=== PATIENT | male | born 1950 | race Caucasian/White ===

== ENCOUNTER 2020-05-02 09:53 | Outpatient (CLI) | payer MEDICARE, SELFPAY ==
[2020-05-03 22:42] LABS: SARS-CoV-2 RNA PCR Negative
== END 2020-05-02 09:54 | disposition home or self-care (01) ==
PROVIDERS: Visit Provider Internal Medicine Critical Care Medicine
DX: Z20.828 Contact with and (suspected) exposure to other viral communicable diseases (principal)
CPT/HCPCS: 87635; C9803; U0003

== ENCOUNTER 2020-05-03 13:15 | Outpatient (CLI) | payer MEDICARE, SELFPAY ==
[2020-05-04 12:24] LABS: SARS-CoV-2 RNA PCR Negative
== END 2020-05-03 13:16 | disposition home or self-care (01) ==
PROVIDERS: Visit Provider Internal Medicine Critical Care Medicine
DX: Z20.828 Contact with and (suspected) exposure to other viral communicable diseases (principal)
CPT/HCPCS: 87635; C9803; U0003

== ENCOUNTER 2020-05-06 19:31 | Outpatient (CLI) | payer MEDICARE, SELFPAY ==
--- NOTE | 2020-05-16 19:25 | P.SLEEP_ITS ---
Sleep Study Date of Study: 05/06/20 Ordering Provider: Dr.Chandra Yocasta Interpreting Physician: Sleep Study Type: Split Polysomnogram Height: 1.83 m Weight: 112.491 kg Body Mass Index: 33.6 Neck Circumference: 48.26 cm [place]: 1 Reason for Sleep Study snoring,hypersomnolence Sleep History According to --Snoring and excessive daytime somnolence.Patient does not report many complaints. [facility] Past Medical History Medical History (Updated 06/04/19 @ 13:20 by Jessica Harrington) Hypercholesterolemia Family History Family History Other Cerebrovascular accident Diabetes mellitus Family history of malignant neoplasm Social History Social History Smoking status: Never smoker Alcohol intake: never Gender identity (if verbalized by the patient): Male Medications Home Medications Medication Instructions Recorded Confirmed Type lovastatin 20 mg PO DAILY 03/19/19 05/25/19 History Sleep Procedure Split night study Sleep Architecture Diagnostic--Sleep [id number] min,sleep efficiency-64.5%,sleep latency-13min,No REM. Wake after sleep onset-55min,StageN1-12.1%,N2-87.9%,No N3 or R.Supine sleep- 64.5% Treatment-Sleep time-146.5min,Sleep efficiency-43.7%sleep latency-64min,REM latency-237min. WASO-124min,StageN1-24.6%,N2-61.8%,N3-0%,R-13.7%Supine sleep-98.6% Respiratory Analysis Zrkibcbomz-Ufzmh-3,2 obstructive,1 central.Index-1.5,Hypopneas-61,index-29.6, AHI-31.1 Supine index-36.9,Non supine-20.5 Treatment--Apneas 4,obstructive,index1.6, Hypopneas-92,index-37.7, AHI-39.3,REM index-15,Non REM index-43.2 all events seen in supine sleep. Arousals Wlzdjzxrjh-Sgddm-40,index 17.2 ,spontaneous-24,respiratory-3,snores-16,leg mov-8 Treatment-Total 143 (25.6) ,Spontaneous-38,Limb mov.-39,iwxrks86,Resp-46. Periodic Limb Movements Diagnostic-237(115), PLMs-8(3.9) Treatment-311 (127.4), PLMs-7 (2.9) Oximetry Data Dignostic-Mean 91%,Min-83%.SaO2<90-30 min,SaO2<88-13min. Egduexqis-Cnfs-71%,Min-82%, SaO2<90-19 min,SaO2<88-!! min. Snoring Profile Present Cardiac Profile Normal sinus rhythm--Diagnostic--mean-72,Treatment-71. Qdzle-77-408. EEG Profile unremarkable Assessment and Plan Additional Plan PAP therapy--Patient used Quattro full face mask -Medium size. Stared on CPAP 5 cm increased to19 cm.AHI was 32 at this high pressure.Patient was switched to BiPAP at 21/17 cm.23 min of trial,8 min and 30 sec of Non REM,and 10 min and 53 sec of REM sleep including supine REM occurred.Sleep ef f-86%.sat-averaged 94.6%. The study shows presence of severe ULYSSES associated with significant desaturation.The use of CPAP even up to 19 cm does not control obstructive events.However use of BiPAP at 21/17 cm eliminates obstruction and prevents hypoxia.This will be appropriate setting for this patient.Other measures would include-Maintenance of healthy weight,proper sleep hygiene and correction of upper airway obstruction if present.
[2020-05-16 20:19] VITALS: BMI 33.6
== END 2020-05-06 19:32 | disposition home or self-care (01) ==
DX: G47.30 Sleep apnea, unspecified (principal)
CPT/HCPCS: 95811

== ENCOUNTER 2020-06-08 07:27 | Outpatient (CLI) | payer MEDICARE, SELFPAY ==
[2020-06-08 08:10] LABS: Hemoglobin A1C 5.8 % (<5.7)
[2020-06-08 10:07] LABS: Alanine Aminotransferase 18 U/L (16-63); Alkaline Phosphatase 85 U/L (46-116); Anion Gap 9 mmol/L (8-16); Aspartate Amino Transferase 18 U/L (15-37); Bilirubin,Total 0.9 mg/dL (0.00-1.00); Blood Urea Nitrogen 14 mg/dL (7-18); Calcium 8.7 mg/dL (8.5-10.1); Carbon Dioxide 27 mmol/L (21-32); Chloride 104 mmol/L (98-108); Cholesterol 224 mg/dL (0-200); Estimated Glomerular Filt Rate > 60; Glucose 111 mg/dL (70-99); HDL Direct 44 mg/dL (40-60); LDL Cholesterol Calculated 147 mg/dL (<130); Osmolality Calculated 291 mOsm/kg (285-295); Potassium 4.1 mmol/L (3.5-5.1); Sodium 140 mmol/L (136-145); Triglycerides 165 mg/dL (0-150)
== END 2020-06-08 07:28 | disposition home or self-care (01) ==
LOC: CHSLAB 07:30
DX: E78.5 Hyperlipidemia, unspecified (principal); R73.03 Prediabetes; Z12.5 Encounter for screening for malignant neoplasm of prostate
CPT/HCPCS: 36415; 80053; 80061; 83036; 84153; G0103

== ENCOUNTER 2021-06-09 07:58 | Outpatient (CLI) | payer MEDICARE, SELFPAY ==
[2021-06-09 09:27] LABS: Alanine Aminotransferase 21 U/L (16-63); Albumin Level 3.8 g/dL (3.4-5.0); Alkaline Phosphatase 92 U/L (46-116); Aspartate Amino Transferase 18 U/L (15-37); Bilirubin Direct 0.1 mg/dL (0-0.2); Bilirubin,Total 0.5 mg/dL (0.00-1.00); Cholesterol 199 mg/dL (0-200); HDL Direct 44 mg/dL (40-60); LDL Cholesterol Calculated 128 mg/dL (<130); Total Protein 6.8 g/dL (6.4-8.2); Triglycerides 137 mg/dL (0-150)
== END 2021-06-09 07:59 | disposition home or self-care (01) ==
DX: E78.00 Pure hypercholesterolemia, unspecified (principal); Z51.81 Encounter for therapeutic drug level monitoring
CPT/HCPCS: 36415; 80061; 80076

== ENCOUNTER 2021-12-28 08:00 | Outpatient (CLI) | payer MEDICARE, SELFPAY ==
[2021-12-28 08:17] LABS: Basophils Absolute Auto 0.03 K/mm3 (0.00-0.10); Basophils Percent Auto 0.4 % (0.0-1.0); Eosinophils Absolute Auto 0.15 K/mm3 (0.02-0.50); Eosinophils Percent Auto 1.8 % (1.0-6.0); Hematocrit 42.2 % (37.0-46.0); Immature Granulocyte Absolute 0.03 K/mm3 (0.00-0.00); Immature Granulocyte Percent A 0.4 % (0.0-0.0); Lymphocytes Absolute Auto 3.12 K/mm3 (1.10-4.50); Lymphocytes Percent Auto 38.2 % (18.0-42.0); Mean Corpuscular HGB Conc 33.2 g/dL (32.0-36.0); Mean Corpuscular Hemoglobin 30.4 pg (27.0-31.0); Mean Corpuscular Volume 91.7 fL (78.0-102.0); Mean Platelet Volume 9.2 fl (8.7-11.0); Monocytes Absolute Auto 0.61 K/mm3 (0.10-0.90); Monocytes Percent Auto 7.5 % (2.0-11.0); Neutrophils Absolute Auto 4.2 K/mm3 (1.7-7.2); Neutrophils Percent Auto 51.7 % (50.0-70.0); Platelet Count Result 208 K/mm3 (150-420); Red Cell Distribution Width 12.2 % (11.6-14.4); White Blood Count 8.2 K/mm3 (4.8-10.8)
[2021-12-28 09:04] LABS: Alanine Aminotransferase 22 U/L (16-63); Albumin Level 3.8 g/dL (3.4-5.0); Alkaline Phosphatase 96 U/L (46-116); Anion Gap 8 mmol/L (8-16); Aspartate Amino Transferase 22 U/L (15-37); Bilirubin,Total 0.6 mg/dL (0.00-1.00); Blood Urea Nitrogen 16 mg/dL (7-18); Calcium 8.9 mg/dL (8.5-10.1); Carbon Dioxide 26 mmol/L (21-32); Chloride 105 mmol/L (98-108); Cholesterol 210 mg/dL (0-200); Estimated Glomerular Filt Rate > 60; Glucose 117 mg/dL (70-99); HDL Direct 49 mg/dL (40-60); LDL Cholesterol Calculated 139 mg/dL (<130); Osmolality Calculated 290 mOsm/kg (285-295); Potassium 4.4 mmol/L (3.5-5.1); Prostate Specific Antigen 2.5 ng/mL (< OR = 4.0); Sodium 139 mmol/L (136-145); Total Protein 6.6 g/dL (6.4-8.2); Triglycerides 110 mg/dL (0-150)
== END 2021-12-28 08:01 | disposition home or self-care (01) ==
LOC: CHSLAB 08:06
DX: R73.03 Prediabetes (principal); E78.00 Pure hypercholesterolemia, unspecified; Z12.5 Encounter for screening for malignant neoplasm of prostate
CPT/HCPCS: 36415; 80053; 80061; 83036; 84153; 85025; G0103

== ENCOUNTER 2022-06-15 08:04 | Outpatient (CLI) | payer MEDICARE, SELFPAY ==
[2022-06-15 08:22] LABS: Basophils Absolute Auto 0.03 K/mm3 (0.00-0.10); Basophils Percent Auto 0.4 % (0.0-1.0); Eosinophils Absolute Auto 0.25 K/mm3 (0.02-0.50); Eosinophils Percent Auto 3.2 % (1.0-6.0); Hematocrit 41.7 % (37.0-46.0); Immature Granulocyte Absolute 0.02 K/mm3 (0.00-0.00); Immature Granulocyte Percent A 0.3 % (0.0-0.0); Lymphocytes Absolute Auto 2.26 K/mm3 (1.10-4.50); Lymphocytes Percent Auto 28.7 % (18.0-42.0); Mean Corpuscular HGB Conc 33.6 g/dL (32.0-36.0); Mean Corpuscular Hemoglobin 30.8 pg (27.0-31.0); Mean Corpuscular Volume 91.9 fL (78.0-102.0); Mean Platelet Volume 9.2 fl (8.7-11.0); Monocytes Absolute Auto 0.74 K/mm3 (0.10-0.90); Monocytes Percent Auto 9.4 % (2.0-11.0); Neutrophils Absolute Auto 4.6 K/mm3 (1.7-7.2); Platelet Count Result 215 K/mm3 (150-420); Red Blood Count 4.54 M/mm3 (4.70-6.10); Red Cell Distribution Width 12.6 % (11.6-14.4); White Blood Count 7.9 K/mm3 (4.8-10.8)
[2022-06-15 08:36] LABS: Hemoglobin A1C 5.7 % (<5.7)
[2022-06-15 08:49] LABS: Alanine Aminotransferase 23 U/L (16-63); Albumin Level 3.7 g/dL (3.4-5.0); Alkaline Phosphatase 88 U/L (46-116); Anion Gap 9 mmol/L (8-16); Aspartate Amino Transferase 31 U/L (15-37); Bilirubin,Total 0.6 mg/dL (0.00-1.00); Blood Urea Nitrogen 15 mg/dL (7-18); Calcium 8.5 mg/dL (8.5-10.1); Carbon Dioxide 27 mmol/L (21-32); Chloride 104 mmol/L (98-108); Cholesterol 187 mg/dL (0-200); Estimated Glomerular Filt Rate > 60; Glucose 111 mg/dL (70-99); HDL Direct 48 mg/dL (40-60); LDL Cholesterol Calculated 119 mg/dL (<130); Osmolality Calculated 291 mOsm/kg (285-295); Potassium 4.4 mmol/L (3.5-5.1); Sodium 140 mmol/L (136-145); Total Protein 6.7 g/dL (6.4-8.2); Triglycerides 98 mg/dL (0-150)
== END 2022-06-15 08:05 | disposition home or self-care (01) ==
LOC: CHSLAB 08:10
DX: R73.03 Prediabetes (principal); E78.00 Pure hypercholesterolemia, unspecified
CPT/HCPCS: 36415; 80053; 80061; 83036; 85025

== ENCOUNTER 2022-06-21 11:01 | Outpatient (CLI) | payer MEDICARE, SELFPAY ==
[2022-06-21 11:57] LABS: Prostate Specific Antigen 3.2 ng/mL (< OR = 4.0)
== END 2022-06-21 11:02 | disposition home or self-care (01) ==
LOC: CHSLAB 11:05
DX: Z12.5 Encounter for screening for malignant neoplasm of prostate (principal)
CPT/HCPCS: 36415; 84153; G0103

== ENCOUNTER 2023-06-20 16:05 | Emergency (ER) | payer MEDICARE, SELFPAY ==
[2023-06-20] VITALS (20 sets, daily range): BP systolic 100–134; BP diastolic 56–73; PULSE 70–83; RESP 14–16; TEMP 36.2–36.9; O2SAT 83–99
--- NOTE | ~2023-06-20 | CT_ITS ---
EXAMINATION: 1. CT facial & cervical spine wo DATE: 06/20/2023 16:58 INDICATION: Syncopal episode with head injury post fall TECHNIQUE: 1. Computed tomography (CT) of the maxillofacial region and of the cervical spine were performed with out intravenous contrast. Sagittal and coronal reconstructions of both regions were obtained. Automat ed exposure control and iterative reconstruction technique were employed. The dose-length product was 541.46 mGy-cm. COMPARISON: None. FINDINGS: Maxillofacial CT: Small left frontal scalp contusion. There is rightward deviation of the left and right nasal bones bu t without appreciable overlying soft tissue swelling and favor old fracture deformity over acute frac ture. No other maxillofacial fractures identified. Specifically the mandible, zygomatic arches and wa lls of the orbits and paranasal sinuses are all intact. Changes of bilateral intraocular lens replace ment. There is moderate mucosal thickening the inferior right maxillary sinus. Remainder of the paran melinda sinuses along with the mastoid air cells and middle ear cavities are clear. Cervical spine CT: Straightening of the normal cervical lordosis. 2 mm anterolisthesis C4 on C5. Vertebral body heights are normal. No acute fracture. Severe disc height loss at C6-C7, moderate disc height loss at C3-C4 a nd C5-C6 and mild disc height loss at C4-C5 and C7-T1. 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 Disc bulges or disc osteophyte complexes from C2-C3 through C6-C7 resulting in multilevel mild central canal stenosis greatest at C6-C7. There is multile emma moderate to severe cervical facet and uncovertebral osteoarthritis which contributes to moderate neural foraminal stenosis on the right at C4-C5 with mild neural from stenosis at majority the remain ing bilateral cervical levels. Small amount of atherosclerotic calcification at the bilateral carotid bulbs. Cervical soft tissues are otherwise unremarkable. IMPRESSION: 1. Rightward deviation of the bilateral nasal bones without appreciable overlying soft tissue swellin g and favor old fracture deformity over acute fracture. Correlate for clinical history of prior traum a. No other maxillofacial fractures identified. 2. Severe cervical spondylosis with no acute osseous abnormality. Reviewed, dictated and finalized at location A. R ENERGY SYSTEMS DESIGNER IMPRESSION: 1. Rightward deviation of the bilateral nasal bones without appreciable overlyi ng soft tissue swelling and favor old fracture deformity over acute fracture. C orrelate for clinical history of prior trauma. No other maxillofacial fractures identified. 2. Severe cervical spondylosis with no acute osseous abnormality.
--- NOTE | ~2023-06-20 | CT_ITS ---
EXAMINATION: CTA chest PE protocol DATE: 06/20/2023 17:24 INDICATION: Syncopal episode. Positive d-dimer. TECHNIQUE: Computed tomography (CT) pulmonary angiogram of the chest was performed with 100 mL Omnipa que-350 intravenous contrast. Additional 3D reconstructions utilizing coronal maximum intensity proje ction (MIP) were performed. Automated exposure control and iterative reconstruction technique were em ployed. The dose-length product was 720.01 mGy-cm. COMPARISON: Thoracic spine CT dated 05/19/2013 FINDINGS: Good contrast opacification of the pulmonary arteries which demonstrates no pulmonary embolism. Calci fied left lower lobe nodule along with calcified left hilar lymph nodes consistent with old granuloma tous disease. Unchanged 4 mm subpleural noncalcified granuloma in the right upper lobe. Mild dependen t atelectasis in the bilateral lower lobes. No pneumonia, pulmonary edema, pleural effusion or pneumo thorax. Heart size is normal. No pericardial effusion. Atherosclerotic coronary artery calcifications . Thoracic aorta is normal in caliber with no dissection. No pathologically enlarged thoracic lymphad enopathy. Visualized upper abdomen is unremarkable. Mild thoracic spondylosis with chronic appearing mild anterior wedging at T7. IMPRESSION: 1. No pulmonary embolism or other acute cardiopulmonary disease. Reviewed, dictated and finalized at location A. TION DESIGN ENGINEER
--- NOTE | ~2023-06-20 | CT_ITS ---
EXAMINATION: CT brain wo con DATE: 06/20/2023 16:58 INDICATION: Fall with syncopal episode and head injury TECHNIQUE: Computed tomography (CT) of the head was performed without intravenous contrast. Sagittal and coronal reconstructions were performed. The mA was adjusted according to patient size. Iterative reconstruction technique was employed. The dose-length product was 681.00 mGy-cm. COMPARISON: None FINDINGS: No fracture. No acute intracranial hemorrhage, acute infarction or abnormal extra axial fluid collect ion. Symmetric prominence of the sulci consistent with mild age-appropriate diffuse cerebral volume l oss. Ventricles are normal and symmetric. No mass/mass effect. Mild mucosal thickening in the right m axillary sinus. The orbits, paranasal sinuses and mastoid air cells are normal. IMPRESSION: 1. Normal aging brain. No fracture or acute intracranial process. Reviewed, dictated and finalized at location A. WRAPPER
--- NOTE | 2023-06-20 16:17 | ECG_ITS ---
Measurements Intervals [place] Rate: 79 P: 52 [place]: 170 QRS: -47 QRSD: 142 T: 43 QT: 398 QTc: 457 Interpretive Statements SINUS RHYTHM RIGHT BUNDLE BRANCH BLOCK [120+ ms QRS DURATION, UPRIGHT V1, 40+ ms S IN I/aVL/V4/V5/V6] LEFT ANTERIOR FASCICULAR BLOCK [QRS AXIS <= -45, QR IN I, RS IN II] ABNORMAL ECG NO PREVIOUS ECG AVAILABLE FOR COMPARISON Electronically Signed On 06-21-2023 14:02:32 IMPREGNATING MACHINE OPERATOR by Antelmo Borrego M.D.
[2023-06-20 16:33] LABS: Basophils Absolute Auto 0.02 K/mm3 (0.00-0.10); Basophils Percent Auto 0.2 % (0.0-1.0); Eosinophils Absolute Auto 0.08 K/mm3 (0.02-0.50); Eosinophils Percent Auto 0.9 % (1.0-6.0); Hematocrit 38.6 % (37.0-46.0); Hemoglobin 12.7 g/dL (12.4-15.3); Immature Granulocyte Absolute 0.03 K/mm3 (0.00-0.00); Immature Granulocyte Percent A 0.3 % (0.0-0.0); Lymphocytes Absolute Auto 2.88 K/mm3 (1.10-4.50); Lymphocytes Percent Auto 32.7 % (18.0-42.0); Mean Corpuscular HGB Conc 32.9 g/dL (32.0-36.0); Mean Corpuscular Hemoglobin 30.2 pg (27.0-31.0); Mean Corpuscular Volume 91.7 fL (78.0-102.0); Mean Platelet Volume 9.3 fl (8.7-11.0); Monocytes Percent Auto 7.9 % (2.0-11.0); Neutrophils Absolute Auto 5.1 K/mm3 (1.7-7.2); Platelet Count Result 211 K/mm3 (150-420); Red Blood Count 4.21 M/mm3 (4.70-6.10); Red Cell Distribution Width 12.8 % (11.6-14.4); White Blood Count 8.8 K/mm3 (4.8-10.8)
[2023-06-20 16:46] LABS: Partial Thromboplastin Time 23.6 SEC (23.90-30.70); Prothrombin Time 10.7 Seconds (9.50-12.10)
[2023-06-20 16:48] LABS: D Dimer 4.21 mg/L (0.19-0.50)
[2023-06-20 16:52] LABS: Lactic Acid Reflex 1.1 mmol/L (0.4-2.0)
[2023-06-20] MEDS: SODIUM CHLORIDE 0.9% IV 1,000 ML 999 ML IV CONT (16:53)
[2023-06-20 16:55] LABS: Alanine Aminotransferase 26 U/L (16-63); Albumin Level 3.4 g/dL (3.4-5.0); Alkaline Phosphatase 69 U/L (46-116); Anion Gap 10 mmol/L (8-16); Aspartate Amino Transferase 21 U/L (15-37); Bilirubin,Total 0.8 mg/dL (0.00-1.00); Blood Urea Nitrogen 23 mg/dL (7-18); Calcium 8.7 mg/dL (8.5-10.1); Carbon Dioxide 26 mmol/L (21-32); Chloride 104 mmol/L (98-108); Estimated CRCL calculation 48 ml/min; Estimated Glomerular Filt Rate 45; Glucose 140 mg/dL (70-99); Magnesium 2.4 mg/dL (1.8-2.4); NT Pro B Type Natriuretic Pept 119 pg/mL (0-125); Osmolality Calculated 295 mOsm/kg (285-295); Potassium 3.8 mmol/L (3.5-5.1); Sodium 140 mmol/L (136-145); Total Protein 6.7 g/dL (6.4-8.2)
[2023-06-20 18:05] LABS: Appearance Urine Clear (Clear); Bilirubin Urine Negative (Negative); Blood Urine Negative (Negative); Color Urine Light Yellow (Yellow); Glucose Urine UA Negative (Negative); Ketones Urine Negative (Negative); Leukocyte Esterase Ur Negative LEU/UL (Negative); Nitrate Urine Negative (Negative); Protein Urine Negative (Negative); Specific Grav Ur <= 1.005 (1.010-1.020); Urobilinogen Urine 0.2 mg/dL (0.2-1.0); pH Urine 7.5 (5.0-8.0)
[2023-06-20 18:07] LABS: Add Urine Microscopic? NO
--- NOTE | 2023-06-20 18:15 | ED.SYNCOPE ---
HPI - Syncope General Chief Complaint: Syncope Stated Complaint: fainting episode Time Seen by Provider: 06/20/23 16:16 Source: patient and family Mode of arrival: ambulatory Limitations: no limitations History of Present Illness HPI narrative: this is a 72-year-old male with history of hypertension has been having episodes of diarrhea over the past couple of days and had an episode where he passed out with loss of consciousness for couple of minutes with no seizure activity no fever chills no chest pain no shortness of breaths did hit the bridge of his nose in and initially had nasal bleed but currently there is no bleeding no fever chills no diarrhea constipation currently but has been having episodes of diarrhea. complaint: loss of consciousness Onset (ago): hour(s) Duration of episode: 2 -: minutes(s) Prodromal symptoms: none Witnessed: No History: previous syncopal episode Related Data Home Medications Medication Instructions Recorded Confirmed lovastatin 20 mg tablet 20 mg PO DAILY 03/19/19 06/20/23 lisinopril 10 mg tablet 10 mg PO DAILY 06/20/23 06/20/23 Allergies Allergy/AdvReac Type Severity Reaction Status Date / Time Sulfa (Sulfonamide Allergy Unknown Unknown Verified 06/20/23 16:13 Antibiotics) Review of Systems Review of Systems: All systems reviewed & are unremarkable except as noted in HPI and below PMFSH Past Medical History Medical History (Updated 06/20/23 @ 18:20 by Antelmo Enriquez MD) Hypercholesterolemia Family History Family History Other Cerebrovascular accident Diabetes mellitus Family history of malignant neoplasm Social History Social History Smoking status: Never smoker Alcohol intake: never Gender identity (if verbalized by the patient): Male Exam Const: General: healthy appearing and no acute distress Nutritional Appearance: well nourished Limitations: no limitations HENMT: Head: normal to inspection Neck: Neck: normal visual inspection, no lymphadenopathy and no meningeal signs Chest: Chest palpation & inspection: normal inspection of the chest Resp: Effort & Inspection: normal respiratory effort Auscultation: clear to auscultation bilaterally Cardio: Rate: regular rate Rhythm: regular rhythm GI: GI Palp: Yes Soft to palpation Auscultation: normal bowel sounds : General: Yes bladder normal to palpation Back/Spine/Pelvis: Back: no CVA tenderness Neuro: General: patient oriented x3, moves all extremities, no meningeal signs and no focal motor deficits Extrem: General: normal to inspection, no clubbing, cyanosis or edema and no pedal edema Psych: Mental Status: mental status grossly normal Affect: normal affect Course Course Emergency Course: Patient blood pressure initially 117/72 had dropped down to systolic 107 received bolus of normal saline current blood pressure 132/56, patient is comfortable with no acute distress. Patient has CT scan of the facial bones cervical spine and CT scan of the brain which were all within normal limits. Patient had an elevated D-dimer and CTA performed which shows no acute pulmonary embolism. Vital Signs Vital signs: Vital Signs Temperature 36.2 C L 06/20/23 16:05 Pulse Rate 74 06/20/23 16:05 Respiratory Rate 14 06/20/23 16:05 Blood Pressure 117/72 06/20/23 16:05 Pulse Oximetry 94 06/20/23 16:05 Oxygen Delivery Room Air 06/20/23 16:05 Temperature 36.2 C L 06/20/23 16:05 Pulse Rate 79 06/20/23 17:31 Respiratory Rate 16 06/20/23 17:31 Blood Pressure 112/56 L 06/20/23 17:31 Pulse Oximetry 96 06/20/23 17:45 Oxygen Delivery Room Air 06/20/23 17:00 MDM - Syncope Lab Data 06/20/23 16:29 06/20/23 16:29 Labs: Lab Results 06/20/23 06/20/23 Range/Units 16:17 16:29 WBC 8.8 (4.8-10.8) K/mm3 RBC 4
== END 2023-06-20 18:25 | disposition home or self-care (01) ==
PROVIDERS: Emergency Provider Emergency Medicine
DX: E86.0 Dehydration (principal); T67.1XXA Heat syncope, initial encounter; I95.1 Orthostatic hypotension; I10 Essential (primary) hypertension; Z79.899 Other long term (current) drug therapy
CPT/HCPCS: 36415; 70450; 70486; 71275; 72125; 80053; 81003; 83605; 83735; 83880; 84484; 85025; 85380; 85610; 85730; 93005; 96360; 99284; J7030; Q9967

== ENCOUNTER 2023-06-22 07:49 | Outpatient (CLI) | payer MEDICARE, SELFPAY ==
[2023-06-22 08:11] LABS: Basophils Absolute Auto 0.02 K/mm3 (0.00-0.10); Basophils Percent Auto 0.3 % (0.0-1.0); Eosinophils Absolute Auto 0.11 K/mm3 (0.02-0.50); Eosinophils Percent Auto 1.4 % (1.0-6.0); Hemoglobin 13.1 g/dL (12.4-15.3); Immature Granulocyte Absolute 0.01 K/mm3 (0.00-0.00); Immature Granulocyte Percent A 0.1 % (0.0-0.0); Lymphocytes Absolute Auto 2.91 K/mm3 (1.10-4.50); Lymphocytes Percent Auto 36.8 % (18.0-42.0); Mean Corpuscular HGB Conc 33.6 g/dL (32.0-36.0); Mean Corpuscular Hemoglobin 30.7 pg (27.0-31.0); Mean Corpuscular Volume 91.3 fL (78.0-102.0); Mean Platelet Volume 9.1 fl (8.7-11.0); Monocytes Absolute Auto 0.53 K/mm3 (0.10-0.90); Monocytes Percent Auto 6.7 % (2.0-11.0); Neutrophils Absolute Auto 4.3 K/mm3 (1.7-7.2); Neutrophils Percent Auto 54.7 % (50.0-70.0); Platelet Count Result 203 K/mm3 (150-420); Red Blood Count 4.27 M/mm3 (4.70-6.10); Red Cell Distribution Width 12.7 % (11.6-14.4); White Blood Count 7.9 K/mm3 (4.8-10.8)
[2023-06-22 09:22] LABS: Alanine Aminotransferase 25 U/L (16-63); Albumin Level 3.5 g/dL (3.4-5.0); Alkaline Phosphatase 83 U/L (46-116); Anion Gap 10 mmol/L (8-16); Aspartate Amino Transferase 20 U/L (15-37); Bilirubin,Total 0.7 mg/dL (0.00-1.00); Blood Urea Nitrogen 18 mg/dL (7-18); Calcium 8.4 mg/dL (8.5-10.1); Carbon Dioxide 26 mmol/L (21-32); Chloride 105 mmol/L (98-108); Cholesterol 203 mg/dL (0-200); Estimated Glomerular Filt Rate > 60; Glucose 114 mg/dL (70-99); HDL Direct 54 mg/dL (40-60); LDL Cholesterol Calculated 133 mg/dL (<130); Osmolality Calculated 294 mOsm/kg (285-295); Potassium 4.5 mmol/L (3.5-5.1); Prostate Specific Antigen 3.5 ng/mL (< OR = 4.0); Sodium 141 mmol/L (136-145); Total Protein 6.5 g/dL (6.4-8.2); Triglycerides 82 mg/dL (0-150)
[2023-06-22 09:29] LABS: Thyroid Stimulating Hormone Reflex 0.93 u/IU/mL (0.36-3.74)
== END 2023-06-22 07:50 | disposition home or self-care (01) ==
LOC: CHSLAB 07:56
DX: Z12.5 Encounter for screening for malignant neoplasm of prostate (principal); E78.00 Pure hypercholesterolemia, unspecified; R73.03 Prediabetes; I10 Essential (primary) hypertension
CPT/HCPCS: 36415; 80053; 80061; 83036; 84153; 84443; 85025; G0103

== ENCOUNTER 2023-07-08 13:12 | Outpatient (CLI) | payer MEDICARE, SELFPAY ==
[2023-07-08 13:32] LABS: Basophils Absolute Auto 0.03 K/mm3 (0.00-0.10); Basophils Percent Auto 0.3 % (0.0-1.0); Eosinophils Absolute Auto 0.07 K/mm3 (0.02-0.50); Eosinophils Percent Auto 0.8 % (1.0-6.0); Hematocrit 38.6 % (37.0-46.0); Immature Granulocyte Absolute 0.01 K/mm3 (0.00-0.00); Immature Granulocyte Percent A 0.1 % (0.0-0.0); Lymphocytes Absolute Auto 3.03 K/mm3 (1.10-4.50); Lymphocytes Percent Auto 33.7 % (18.0-42.0); Mean Corpuscular HGB Conc 33.7 g/dL (32.0-36.0); Mean Corpuscular Hemoglobin 30.5 pg (27.0-31.0); Mean Corpuscular Volume 90.6 fL (78.0-102.0); Mean Platelet Volume 9.3 fl (8.7-11.0); Monocytes Absolute Auto 0.43 K/mm3 (0.10-0.90); Monocytes Percent Auto 4.8 % (2.0-11.0); Neutrophils Absolute Auto 5.4 K/mm3 (1.7-7.2); Neutrophils Percent Auto 60.3 % (50.0-70.0); Platelet Count Result 229 K/mm3 (150-420); Red Blood Count 4.26 M/mm3 (4.70-6.10); Red Cell Distribution Width 12.4 % (11.6-14.4)
[2023-07-08 13:45] LABS: Prothrombin Time 10.8 Seconds (9.50-12.10)
[2023-07-08 14:08] LABS: Alanine Aminotransferase 24 U/L (16-63); Albumin Level 3.6 g/dL (3.4-5.0); Alkaline Phosphatase 101 U/L (46-116); Anion Gap 9 mmol/L (8-16); Aspartate Amino Transferase 21 U/L (15-37); Bilirubin,Total 0.7 mg/dL (0.00-1.00); Blood Urea Nitrogen 18 mg/dL (7-18); Calcium 8.3 mg/dL (8.5-10.1); Carbon Dioxide 28 mmol/L (21-32); Chloride 103 mmol/L (98-108); Estimated Glomerular Filt Rate 56; Glucose 154 mg/dL (70-99); Osmolality Calculated 294 mOsm/kg (285-295); Potassium 4.1 mmol/L (3.5-5.1); Sodium 140 mmol/L (136-145); Total Protein 6.5 g/dL (6.4-8.2)
== END 2023-07-08 13:13 | disposition home or self-care (01) ==
LOC: CHSLAB 13:16
DX: R55 Syncope and collapse (principal)
CPT/HCPCS: 36415; 80053; 85025; 85610

== ENCOUNTER 2023-08-02 15:56 | Observation (INO) | payer MEDICARE, SELFPAY ==
--- NOTE | ~2023-08-02 | XR_ITS ---
EXAMINATION: XR chest 2V 08/02/2023 17:47 INDICATION: Syncope. PROCEDURE: 2 view chest COMPARISON: 05/08/2016 FINDINGS: The lungs are clear. The cardiomediastinal silhouette is within normal limits. There are no pleural effusions. There is no pneumothorax suspected. IMPRESSION: 1: NO ACUTE CARDIOPULMONARY DISEASE. Reviewed, dictated and finalized at location A.
--- NOTE | ~2023-08-02 | MR_ITS ---
EXAMINATION: MR brain/brain stem wo con DATE: 08/03/2023 13:04 INDICATION: Syncope versus stroke or transient ischemic episode TECHNIQUE: Magnetic resonance imaging (MRI) of the brain and brainstem was performed without intraven ous contrast. Sequences included sagittal and axial T1-weighted SE, axial diffusion-weighted FS SE, a xial T2*-weighted GRE, axial T2-weighted FLAIR, and axial T2-weighted FSE. Apparent diffusion coeffic ient (ADC) maps were created. COMPARISON: Head CT and CT angiogram dated 08/02/2023 FINDINGS: There are no areas of restricted diffusion to suggest acute infarction. No intracranial hemorrhage or abnormal intracranial mass lesion. There are a few scattered foci of nonspecific increased T2-weight ed signal intensity in the cerebral and pontine white matter, predominantly involving the deep and pe riventricular white matter. There are no intraparenchymal signal abnormalities seen on the other puls e sequences. The ventricles are symmetric and normal in size. There are no abnormal extra-axial fluid collections. Flow voids are seen in the cerebral arteries on the T2-weighted sequences consistent wi th their expected patency. Left vertebral artery is dominant. Changes of bilateral intraocular lens r eplacement. Visualized orbits and soft tissues are unremarkable. Mild mucosal thickening the bilatera l ethmoid sinuses and mucous retention cyst in the right maxillary sinus. IMPRESSION: 1. Minimal scattered nonspecific cerebral and pontine white matter T2 hyperintensity which is within normal limits for age and likely sequela of chronic small vessel ischemic disease. Reviewed, dictated and finalized at location A. IMPRESSION: 1. Minimal scattered nonspecific cerebral and pontine white matter T2 hyperinte nsity which is within normal limits for age and likely sequela of chronic small vessel ischemic disease.
--- NOTE | ~2023-08-02 | CT_ITS ---
EXAMINATION: CTA brain carotid DATE: 08/02/2023 18:39 CDT INDICATION: Syncope versus TIA TECHNIQUE: Computed tomographic angiography (CTA) of the head was performed without and with 100 mL O mnipaque-350 intravenous contrast. CTA of the neck was performed with intravenous contrast. The dose- length product was 1842.97 mGy-cm. Maximum intensity projection and volume rendered 3D-reconstruction s were created by the technologist on a separate workstation. COMPARISON: CT dated 06/20/2023. FINDINGS: HEAD CTA: Brain parenchymal volume is decreased, commensurate with age. There are scattered mild angelica ventricular and subcortical white matter changes, most likely related to small vessel ischemic diseas e (microangiopathy). No acute intracranial hemorrhage, infarction, mass or mass effect. Mild intracra nial atherosclerosis. No ventriculomegaly or midline shift. There is mucous retention cyst of the rig ht maxillary sinus. Mastoids are pneumatized. No depressed skull fractures. There is mild dolichoecta eric of the internal carotid arteries at the cavernous segments. No aneurysm, significant stenosis or occlusion. Dominant left vertebral artery. The anterior and right posterior communicating arteries ar e present. NECK CTA: Mild atherosclerosis at the carotid bulbs without significant luminal narrowing, occlusion or dissection. The origins of the vertebral and common carotid arteries are widely patent. No evidenc e for aortic aneurysm or dissection. No significant cervical lymphadenopathy. There is less than 10% stenosis of the proximal right internal carotid artery relative to normal dist al artery lumen diameter (NASCET criteria). There is less than 10% stenosis of the proximal left inte rnal carotid artery relative to normal distal artery lumen diameter. IMPRESSION: 1: No significant vascular abnormality of the head or neck. Reviewed, dictated and finalized at location A.
[2023-08-02 15:59] VITALS: BP 115/60; PULSE 65; RESP 19; TEMP 36.9; O2SAT 97
--- NOTE | 2023-08-02 15:59 | ED.SYNCOPE ---
HPI - Syncope General Chief Complaint: Unspecified <Fabby Negron MD - Last Filed: 08/03/23 12:23> Stated Complaint: unspecified <Fabby Negron MD - Last Filed: 08/03/23 12:23> Time Seen by Provider: 08/02/23 15:58 <Fabby Negron MD - Last Filed: 08/03/23 12:23> History of Present Illness HPI narrative: Patient is a 73 year old male with history of HTN, HLD here with near syncope. He notes that today he had a busy day running errands and grocery shopping. He had to take several trips up and down the stairs to get his stuff inside the house. He felt quite tired after this and rested on the couch for about 30 minutes. Around 2:45 PM he was on his way to metal mockup maker his grand children from school when he began having some bilateral blurred vision. He notes it was associated with some generalized fatigue and felt like he pay pass out. He was able to metal mockup maker his grand kids and while attempting to drive home, his grandson asked what was wrong because he was going very slow and veering to the left. He notes he pulled over and was brought back to the house and then presented here to the ER. He notes symptoms lasted less than 15 minutes and are fully resolved. No associated numbness or weakness in his arms, legs or face. Of note, he did have a similar episode about 6 weeks ago. He did not go to the ER at that time but his contacted a leather production artisan who performed a cardiac cath about 6 weeks ago. He was told that he had some blockage on the left side of his heart but it was not narrow enough to require stenting, he was discharged the same day from [facility]. No history of stroke or TIA. <Fabby Negron MD - Last Filed: 08/03/23 12:23> Related Data Home Medications: Home Medications Medication Instructions Recorded Confirmed lovastatin 20 mg tablet 20 mg PO DAILY 03/19/19 08/02/23 lisinopril 10 mg tablet 10 mg PO DAILY 06/20/23 08/02/23 aspirin 81 mg tablet,delayed 81 mg PO BID 08/02/23 08/02/23 release carvedilol 6.25 mg tablet 6.25 mg PO DAILY 08/02/23 08/02/23 <Fabby Negron MD - Last Filed: 08/03/23 12:23> Allergies/Adverse Reactions: Allergies Allergy/AdvReac Type Severity Reaction Status Date / Time Sulfa (Sulfonamide Allergy Unknown Unknown Verified 08/02/23 16:08 Antibiotics) <Fabby Negron MD - Last Filed: 08/03/23 12:23> Review of Systems Review of Systems: All systems reviewed & are unremarkable except as noted in HPI and below <Fabby Negron MD - Last Filed: 08/03/23 12:23> PMFSH Past Medical History Medical History: Medical History (Updated 08/03/23 @ 11:04 by Sami Deleon APRN) Hypercholesterolemia <Fabby Negron MD - Last Filed: 08/03/23 12:23> Family History Family History: Family History Other Cerebrovascular accident Diabetes mellitus Family history of malignant neoplasm <Fabby Negron MD - Last Filed: 08/03/23 12:23> Social History Social History: Social History Smoking status: Never smoker Second hand tobacco smoke exposure: No Alcohol intake: never Substance use: never Substance use type: does not use Do You Feel Safe in your Home?: Yes Lack of Transportation: No Lack of Food: Never True Current Housing: Decline to Answer Concerned About Future Housing: No Difficulty Paying Gas/Electric Bills: No Difficulty Paying for Meds: No Currently Unemployed: No Education: High School Diploma/GED Difficulty w/ Childcare or Family Care: No Gender identity (if verbalized by the patient): Male Spiritual care concerns: No <Fabby Negron MD - Last Filed: 08/03/23 12:23> Exam Narrative: GENERAL: Well-appearing, well-nourished, and in no acute distress. HEAD: Normocephalic, atraumatic. EYES: PERRLA and EOMI. ENT: Nares clear. Mucous membranes moist. NECK: Supple. CHEST: Clear to auscultation. No respiratory d
--- NOTE | 2023-08-02 16:10 | ECG_ITS ---
Measurements Intervals [place] Rate: 65 P: 33 AL: 166 QRS: -26 QRSD: 91 T: 55 QT: 384 QTc: 400 Interpretive Statements SINUS RHYTHM BORDERLINE R WAVE PROGRESSION, ANTERIOR LEADS BASELINE ARTIFACT- II, III, AVF, V1 BORDERLINE ECG COMPARED TO ECG 06/20/2023 16:27:28 NO SIGNIFICANT CHANGES Electronically Signed On 08-02-2023 16:41:14 CDT by Travis Beltran D.O.
[2023-08-02 16:37] LABS: Basophils Absolute Auto 0.03 K/mm3 (0.00-0.10); Basophils Percent Auto 0.3 % (0.0-1.0); Eosinophils Absolute Auto 0.24 K/mm3 (0.02-0.50); Eosinophils Percent Auto 2.6 % (1.0-6.0); Hematocrit 37.1 % (37.0-46.0); Hemoglobin 12.2 g/dL (12.4-15.3); Immature Granulocyte Absolute 0.03 K/mm3 (0.00-0.00); Immature Granulocyte Percent A 0.3 % (0.0-0.0); Mean Corpuscular HGB Conc 32.9 g/dL (32-36); Mean Corpuscular Hemoglobin 30.5 pg (27.0-31.0); Mean Corpuscular Volume 92.8 fL (78.0-102.0); Monocytes Absolute Auto 0.76 K/mm3 (0.10-0.90); Monocytes Percent Auto 8.2 % (2.0-11.0); Neutrophils Absolute Auto 5.78 K/mm3 (1.70-7.20); Neutrophils Percent Auto 62.6 % (50.0-70.0); Platelet Count Result 199 K/mm3 (150-420); Red Cell Distribution Width 12.3 % (11.6-14.4); White Blood Count 9.2 K/mm3 (4.8-10.8)
[2023-08-02 16:53] LABS: Partial Thromboplastin Time 24.5 Sec (23.9-30.70); Prothrombin Time 10.9 Seconds (9.50-12.1)
[2023-08-02 16:59] LABS: Alanine Aminotransferase 21 U/L (16-63); Albumin Level 3.4 g/dL (3.4-5.0); Alkaline Phosphatase 74 U/L (46-116); Anion Gap 7 mmol/L (8-16); Aspartate Amino Transferase 30 U/L (15-37); Bilirubin,Total 0.6 mg/dL (0.00-1.00); Blood Urea Nitrogen 29 mg/dL (7-18); Calcium 8.2 mg/dL (8.5-10.1); Carbon Dioxide 28 mmol/L (21-32); Chloride 104 mmol/L (98-108); Estimated CRCL calculation 44 ml/min; Estimated Glomerular Filt Rate 42; Glucose 126 mg/dL (70-99); Magnesium 2.1 mg/dL (1.8-2.4); Osmolality Calculated 295 mOsm/kg (285-295); Sodium 139 mmol/L (136-145); Total Protein 6.4 g/dL (6.4-8.2); Troponin I 4.2 ng/L (0.00-60.4)
[2023-08-02 17:00] VITALS: BP 115/57; PULSE 66; RESP 20; O2SAT 96
[2023-08-02 18:00] VITALS: BP 118/62; PULSE 68; RESP 20; O2SAT 96
[2023-08-02 19:34] LABS: Troponin I < 4.0 ng/L (0.00-60.4)
[2023-08-02 20:10] VITALS: PULSE 69; RESP 16; O2SAT 97; BMI 31.6
--- NOTE | 2023-08-02 20:10 | ADMGEN ---
This patient, Chapincito Howard, was admitted to 2nd Floor Room 204-1. Patient/family oriented to hospital policies and general routines including ID bracelet, bed and alarms, visiting hours, pain management, procedures, bathroom and other care routines, personal items, smoking policy, room service/diet, and visiting hours. Information on how to activate the Rapid Response Team has been discussed. Patient/Family are encouraged to report perceived risks to care and to ask questions if they do not understand what they are told or what they should do.
[2023-08-02 20:38] VITALS: PULSE 69; RESP 16; O2SAT 97
[2023-08-02 22:16] LABS: Troponin I 4.8 ng/L (0.00-60.4)
[2023-08-03] VITALS: BP 108/61; PULSE 70; RESP 18; TEMP 36.6; O2SAT 98
[2023-08-03 03:28] VITALS: PULSE 72
--- NOTE | 2023-08-03 05:01 | PC.NURSE ---
Pt awake and ambulated steadily to BR and back to bed. He reports no dizziness and wanting to go home this morning.
[2023-08-03 08:00] VITALS: BP 121/63; PULSE 74; RESP 18; TEMP 36.8; O2SAT 98
[2023-08-03] MEDS: lisinopriL 10 MG TABLET PO (08:23)
[2023-08-03] MEDS: ENOXAPARIN 40 MG/0.4 ML SYRINGE SUB-Q (08:23)
[2023-08-03 08:24] VITALS: PULSE 74
[2023-08-03] MEDS: carvediloL 6.25 MG TABLET PO (08:24)
[2023-08-03] MEDS: ASPIRIN 81 MG ENTERIC TABLET PO (08:24)
--- NOTE | 2023-08-03 08:30 | PM.IMHP ---
H&P: HPI History of Present Illness Date/Time: 08/03/23 08:30 Chief Complaint: Syncope vs TIA Narrative: This is a 73 year old male patient with a past medical history of CAD, HTN and HLD who presented to ER yesterday after he had a transient episode of altered level of consciousness. Patient was driving his grandkids when he suddenly experienced a darkening of his vision with subsequent slowing of the car and swerving in the j[place]. Additionally the 15 year old grandson was able to say that patient's words were coming out slower without slurring or jumbled words and that his pupils were both dilated at the time of the event. Grandson also stated that patient complained of numbness and tingling but the patient does not recall this complaint. Patient states that in total he felt different for about 15-20 minutes then returned to normal. Family brought patient to ER for evaluation. About 6 weeks ago patient had another episode that caused him to fall and strike face on the floor. After that event patient went to [facility] and underwent cardiac catheterization that showed single vessel 50% narrowed and no intervention was required. At that time he was started on Coreg. Today patient reports no symptoms or problems and he is requesting prompt discharge home. Review of Systems Review of Systems: All systems reviewed & are unremarkable except as noted in HPI and below PMFSH Past Medical History Medical History CAD (coronary artery disease) HTN (hypertension) Hypercholesterolemia Family History Family History Other Cerebrovascular accident Diabetes mellitus Family history of malignant neoplasm Social History Social History Smoking status: Never smoker Second hand tobacco smoke exposure: No Alcohol intake: never Substance use: never Substance use type: does not use Do You Feel Safe in your Home?: Yes Lack of Transportation: No Lack of Food: Never True Current Housing: Decline to Answer Concerned About Future Housing: No Difficulty Paying Gas/Electric Bills: No Difficulty Paying for Meds: No Currently Unemployed: No Education: High School Diploma/GED Difficulty w/ Childcare or Family Care: No Gender identity (if verbalized by the patient): Male Spiritual care concerns: No Meds Home Medications and Allergies Home Medications Medication Instructions Recorded Confirmed Type lovastatin 20 mg tablet 20 mg PO DAILY 03/19/19 08/02/23 History lisinopril 10 mg tablet 10 mg PO DAILY 06/20/23 08/02/23 History aspirin 81 mg tablet,delayed 81 mg PO BID 08/02/23 08/02/23 History release carvedilol 6.25 mg tablet 6.25 mg PO DAILY 08/02/23 08/02/23 History rosuvastatin 20 mg tablet 20 mg PO DAILY #90 tabs 08/03/23 Rx Allergies Allergy/AdvReac Type Severity Reaction Status Date / Time Sulfa (Sulfonamide Allergy Unknown Unknown Verified 08/02/23 16:08 Antibiotics) Vital Signs Vital Signs - 24 hr 08/02/23 15:59 08/02/23 17:00 08/02/23 18:00 Temperature 36.9 C Pulse Rate 65 66 68 Respiratory Rate 19 20 20 Blood Pressure 115/60 115/57 L 118/62 Pulse Oximetry 97 96 96 Oxygen Delivery Room Air Room Air Room Air 08/02/23 20:38 08/02/23 20:10 08/02/23 20:10 Temperature Pulse Rate 69 69 69 Respiratory Rate 16 16 Blood Pressure Pulse Oximetry 97 97 Oxygen Delivery Room Air Room Air 08/03/23 00:00 08/03/23 00:00 08/03/23 03:28 Temperature 36.6 C Pulse Rate 70 70 72 Respiratory Rate 18 Blood Pressure 108/61 Pulse Oximetry 98 Oxygen Delivery Room Air 08/03/23 08:24 Temperature Pulse Rate 74 Respiratory Rate Blood Pressure Pulse Oximetry Oxygen Delivery Exam Narrative: GENERAL: Well-appearing, well-nourished, and in no acute distress. HEAD: No
[2023-08-03] MEDS: LACTATED RINGERS 1,000 ML 500 ML IV CONT (09:54)
[2023-08-03 10:37] LABS: Cholesterol 175 mg/dL (0-200); HDL Direct 44 mg/dL (40-60); LDL Cholesterol Calculated 111 mg/dL (<130); Triglycerides 99 mg/dL (0-150)
--- NOTE | 2023-08-03 12:30 | PC.NURSE ---
pt to xray via wheelchair with xray staff for mri.
--- NOTE | 2023-08-03 12:31 | PC.NURSE ---
family here and brought lunch. pt wanting discharge soon as possible.
--- NOTE | 2023-08-03 13:11 | PM.DS ---
DS: Admitting Diagnosis Discharge Date 08/03/2023 Admitting Diagnosis Syncope, TIA, HTN, CAD, THOM DS: Discharge Diagnosis Discharge Diagnosis (1) Syncope: Code(s): R55 - Syncope and collapse Status: Acute Assessment and Plan: Transient state of altered level of consciousness yesterday while driving and 6 weeks prior. Family reports more frequent episodes like this have been noticed lately. Patient previously underwent cardiac cath 6 weeks ago after similar incident. No Stroke workup per family report. Ordered MRI today and will plan outpatient Echo with bubble study. Will treat as TIA with aspirin, lipid panel, escalate statin therapy, clopidogrel for 3 weeks if MRI negative. (2) TIA (transient ischemic attack): Code(s): G45.9 - Transient cerebral ischemic attack, unspecified Status: Acute Assessment and Plan: See above (3) HTN (hypertension): Code(s): I10 - Essential (primary) hypertension Status: Acute Assessment and Plan: Blood pressure reviewed and stable. Continue home medication (4) CAD (coronary artery disease): Code(s): I25.10 - Atherosclerotic heart disease of [place] coronary artery without angina pectoris Status: Acute Assessment and Plan: Prior cardiac cath 6 weeks ago. Continue home medications with changes as documented above. (5) THOM (acute kidney injury): Code(s): N17.9 - Acute kidney failure, unspecified Status: Acute Assessment and Plan: Baseline Cr 1-1.2 with eGFR >60, on admit Cr 1.62 with eGFR 42 and patient received IV contrast for CTA.? Ordered 1000 mL LR and will recheck BMP this afternoon. (6) HLD (hyperlipidemia): Code(s): E78.5 - Hyperlipidemia, unspecified Status: Acute Assessment and Plan: LDL 111 on check today, total cholesterol 175. Will change lovastatin to rosuvastatin 20 mg to intensify treatment pending follow up with Neurology and/or Cardiology DS: Summary Hospital Course Hospital Course: Patient admitted for Stroke rule out and syncope. Patient denies any further symptoms. MRI completed and shows chronic microvascular changes but no acute stroke. Patient received IV fluids for THOM and labs improved on recheck. Lipid panel shows LDL 111 which is higher than goal <70. We will change statin rx to rosuvastatin. We will add clopidogrel for 3 weeks with first dose today. Family and patient updated. Outpatient order for Echo with bubble study and instructions to call Saturday morning to get test done here on Saturday. Family wants to call Hay Baler at [facility] for follow up recommendations for a Neurologist. [facility] contact provided for follow up if they do not get referral from Hay Baler. Patient instructed no driving until cleared by Neurology. Prescriptions sent to preferred pharmacy. Status at Discharge Cognitive/behavioral status at discharge: awake, alert, oriented and very pleasant Functional status at discharge: independent ambulation Overall status at discharge: patient is back to baseline Time Spent with Patient Time attestation: Total time spent providing and/or coordinating discharge services: 35 minutes Time spent: Greater than 30 minutes Exam Narrative: GENERAL: Well-appearing, well-nourished, and in no acute distress. HEAD: Normocephalic, atraumatic. EYES: PERRLA and EOMI. ENT: Nares clear. Mucous membranes moist. NECK: Supple. No JVD CHEST: Clear to auscultation. No respiratory distress. HEART: Regular rate and rhythm. Normal peripheral pulses. ABDOMEN: Soft, nontender, nondistended. EXTREMITIES: Normal range of motion. No edema. SKIN: Warm, dry, no rash. NEURO: No focal deficits. No upper or lower extremity drift, no sensory deficits in arms, legs or face. No facial droop. No visual field deficits. Alert and oriented x3. PSYCH: Normal mood and affect. DS: Data Data Completed and Pending Completed studies during hospital
--- NOTE | 2023-08-03 13:13 | PC.NURSE ---
pt return from xray. labs drawn as ordered. pt requesting to take shower, bathroom prepared , supplies gather. pt declined assist this singer songwriter. in room , encouraged to ring styles is any assistance is needed
[2023-08-03 13:44] LABS: Albumin Level 3.4 g/dL (3.4-5.0); Anion Gap 8 mmol/L (8-16); Blood Urea Nitrogen 24 mg/dL (7-18); Calcium 8.7 mg/dL (8.5-10.1); Carbon Dioxide 27 mmol/L (21-32); Chloride 105 mmol/L (98-108); Estimated CRCL calculation 71 ml/min; Estimated Glomerular Filt Rate > 60; Glucose 117 mg/dL (70-99); Osmolality Calculated 295 mOsm/kg (285-295); Phosphorus 3.5 mg/dL (2.6-4.7); Potassium 4.1 mmol/L (3.5-5.1); Sodium 140 mmol/L (136-145)
[2023-08-03] MEDS: CLOPIDOGREL BISULFATE 75 MG TABLET PO (14:03)
--- NOTE | 2023-08-03 17:25 | PC.NURSE ---
1435 pt alert and oriented, speech clear. all discharge instruction reviewed with pt and . pt instructed NO DRIVING UNTIL SEEN BY NEUROLOGIST, and daughter also aware of no driving. all voiced understanding. . 1440 pt taken to car via wheelchair,per this literary writer. able to ambulate and get into personal vehicle with no issues noted. .
--- NOTE | 2023-08-05 09:24 | PC.NURSE ---
Discharge call back completed, doing well, no questions or concerns regarding stay or dc instructions
== END 2023-08-03 14:40 | disposition home or self-care (01) ==
LOC: CHSED 18:35 → CHS2ND 18:40
PROVIDERS: Nurse Practitioner; Student in an Organized Health Care Education/Training Program; Admitting Provider Internal Medicine; Emergency Provider Family Medicine; Visit Provider Internal Medicine
DX: R55 Syncope and collapse (principal); G45.9 Transient cerebral ischemic attack, unspecified; I10 Essential (primary) hypertension; N17.9 Acute kidney failure, unspecified; I25.10 Atherosclerotic heart disease of native coronary artery without angina pectoris; E78.5 Hyperlipidemia, unspecified; R29.700 NIHSS score 0; Z79.82 Long term (current) use of aspirin; Z79.899 Other long term (current) drug therapy
CPT/HCPCS: 36415; 70496; 70498; 70551; 71046; 80053; 80061; 80069; 83735; 84484; 85025; 85610; 85730; 93005; 96360; 96361; 96372; 99285; A9270; G0378; J1650; J7120; Q9967

== ENCOUNTER 2024-10-16 12:05 | Emergency (ER) | payer MEDICARE, SELFPAY ==
[2024-10-16] VITALS (31 sets, daily range): BP systolic 65–115; BP diastolic 44–64; PULSE 65–83; RESP 15–31; TEMP 36.3–36.6; O2SAT 89–98
--- OUTSIDE RECORDS SUMMARY | 2024-10-16 12:08 | XMS_ITS | Clinical Summary ---
Author Organization [facility] Address [address] [place] [address] Phone Care Team Providers Care Unhairing Machine Operator Name Role Phone Maura Monzon Primary Care Provider [phone] Allergies No known active allergies Medications lisinopril (PRINIVIL, ZESTRIL) 20 MG Tablet Take 20 mg by mouth every morning. Active lovastatin (MEVACOR) 20 MG Tablet Take 20 mg by mouth every evening. Active Active Problems No known active problems Family History Medical History Relation Name Comments No Known Problems Father No Known Problems Mother Relation Name Status Comments Father Mother Social History Tobacco Use Types Packs/Day Years Used Date Smoking Tobacco: Never Smokeless Tobacco: Never Tobacco Cessation:Counseling Given: Not Answered Alcohol Use Standard Drinks/Week Comments Not Currently 0 (1 standard drink = 0.6 oz pur e alcohol) Sex and Gender Information Value Date Recorded Sex Assigned at Not on file Legal Sex Male 2:10 PM CDT Gender Identity Not on file Sexual Orientation Not on file Last Filed Vital Signs Vital Sign Reading Time Taken Comments Blood Pressure 106/75 09/10/2022 11:18 AM CDT Pulse 86 09/10/2022 11:18 AM CDT Temperature 35.8 C (96.4 F) 09/10/2022 11:18 AM CDT Respiratory Rate 16 09/10/2022 11:18 AM CDT Oxygen Saturation 97% 09/10/2022 11:18 AM CDT Inhaled Oxygen Concentration - - Weight 104.3 kg (230 lb) 09/04/2022 3:00 PM CDT Height 182.9 cm (6') 09/04/2022 3:00 PM CDT Body Mass Index 31.19 09/04/2022 3:00 PM CDT Plan of Treatment Not on file Medical Devices Implanted Type Area Dairy And Food Laboratory Assistant Device Identifier Shelf Expiration Date Model / Serial / Lot Technis 1-Piece Iol With Simplicity Delivery System Implanted:Qty: 1 on 08/13/2022 by Antelmo Barry MD at [facility] Right: Eye 03/31/2025 [id number] / [id number] / [id number] Technis 1-Piece Iol With Simplicity Delivery System Implanted:Qty: 1 on 09/10/2022 by Antelmo Barry MD at [facility] Left: Eye [employer] 06/17/2024 [id number] / [id number] / [id number] Insurance on file Care Teams Unhairing Machine Operator Relationship Specialty Start Date End Date Maura Monzon DO [address] [facility] [address] [place] [address] PCP - General Internal Medicine 08/03/22
--- OUTSIDE RECORDS SUMMARY | 2024-10-16 12:08 | XMS_ITS | Referral Summary ---
Author Organization [facility] Address [address] [place] [id number] Care Team Providers Care Meal Room Hand Name Role Phone Michael Galvan MD Unavailable Maura Monzon DO Primary Care Provider [phone] Allergies No known active allergies Medications lisinopriL (PRINIVIL,ZESTR [place]) 20 mg tablet Take 1 tablet (20 mg total) by mouth daily Active lovastatin (MEVACOR) 20 mg tablet Take 1 tablet (20 mg total) by mouth nightly Active Active Problems Problem Noted Date Diagnosed Date Kidney stone 07/04/2022 Overview (07/04/2022): Added automatically from request for surgery [id number] Social History Tobacco Use Types Packs/Day Years Used Date Smoking Tobacco: Never AUDIT-C Answer Date Recorded Q1: How often do you have a drink containing alcohol? Never 08/20/2022 Q2: How many drinks containi ng alcohol do you have on a typical day when you are drinking? Patient does not drink Q3: How often do you have si x or more drinks on one occasion? Never 08/20/2022 Personal Safety Answer Date Recorded Have you ever been in or are you currently in a harmful physical or emotional relationship or is someone making you feel afraid or unsafe? Denies 08/20/2022 Sex and Gender Information Value Date Recorded Sex Assigned at Not on file 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 SIDING MECHANIC Gender Identity Not on file Sexual Orientation Not on file Last Filed Vital Signs Vital Sign Reading Time Taken Comments Blood Pressure 112/84 08/20/2022 12:50 PM CDT Pulse 67 08/20/2022 12:50 PM CDT Temperature 36.6 C (97.8 F) 08/20/2022 12:50 PM CDT Respiratory Rate 32 08/20/2022 12:50 PM CDT Oxygen Saturation 93% 08/20/2022 12:50 PM CDT Inhaled Oxygen Concentration - - Weight 104.3 kg (230 lb) 07/27/2022 1:20 PM SIDING MECHANIC Height 182.9 cm (6') 07/27/2022 1:20 PM SIDING MECHANIC Body Mass Index 31.19 07/27/2022 1:20 PM SIDING MECHANIC Plan of Treatment Not on file Medical Devices Implanted Type Area Technician Chemical Cleaning Device Identifier Shelf Expiration Date Model / Serial / Lot [employer] Universa 5fr 28cm Radiopaque Positioner Braid Tether Firm 2 [id number] - [id number] Implanted:Qty: 1 on 08/20/2022 by Michael Galvan MD at [facility] Left: Ureter [employer] 06/01/2025 [id number] / / [id number] [employer] Universa 5fr 28cm Radiopaque Positioner Braid Tether Firm 2 [id number] - [id number] Implanted:Qty: 1 on 08/20/2022 by Michael Galvan MD at [facility] Right: Ureter [employer] 05/28/2025 [id number] / / [id number] Insurance [facility] MEDICARE [facility] Address: [facility] [address] [place] [address] [employer] MEDICARE HMO Care Teams Meal Room Hand Relationship Specialty Start Date End Date Maura Monzon DO [address] [facility] [address] [place] [address] PCP - General Internal Medicine 02/27/23 Michael Galvan MD Consulting Physician Urology 08/20/22
--- OUTSIDE RECORDS SUMMARY | 2024-10-16 12:08 | XMS_ITS | Clinical Summary ---
Author Organization [facility] Address [address] [place] [id number] Care Team Providers Care Filter Bed Placer Name Role Phone Michael Galvan MD Unavailable Maura Monzon DO Primary Care Provider [phone] Allergies No known active allergies Medications lisinopriL (PRINIVIL,ZESTR [place]) 20 mg tablet Take 1 tablet (20 mg total) by mouth daily Active lovastatin (MEVACOR) 20 mg tablet Take 1 tablet (20 mg total) by mouth nightly Active Active Problems Problem Noted Date Diagnosed Date Kidney stone 07/04/2022 Overview (07/04/2022): Added automatically from request for surgery [id number] Surgical History Surgery Date Site/Laterality Comments TONSILLECTOMY/ADENOIDECTOMY EXTRACORPOREAL SHOCK WAVE LITHOTRIPSY CATARACT EXTRACTION 07/21/2022 Bilateral Medical History Medical History Date Comments Hypertension Hypercholesteremia Kidney stones Sleep apnea Social History Tobacco Use Types Packs/Day Years [...] on file 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 SIGN MANUFACTURER Gender Identity Not on file Sexual Orientation Not on file Obstetrics History Last Filed Vital Signs Vital Sign Reading Time Taken Comments Blood Pressure 112/84 08/20/2022 12:50 PM CDT Pulse 67 08/20/2022 12:50 PM CDT Temperature 36.6 C (97.8 F) 08/20/2022 12:50 PM CDT Respiratory Rate 32 08/20/2022 12:50 PM CDT Oxygen Saturation 93% 08/20/2022 12:50 PM CDT Inhaled Oxygen Concentration - - Weight 104.3 kg (230 lb) 07/27/2022 1:20 PM SIGN MANUFACTURER Height 182.9 cm (6') 07/27/2022 1:20 PM SIGN MANUFACTURER Body Mass Index 31.19 07/27/2022 1:20 PM SIGN MANUFACTURER Plan of Treatment Health Maintenance Due Date Last Done Comments Colon Cancer Screening-Colonoscopy 1950 Depression Screening 1950 Hepatitis C Screening 1950 DTaP/Tdap/Td Vaccine (1 - Tdap) 1960 Hepatitis B Screening 07/29/1967 Abdominal Aortic Aneurysm (A AA) Screen 2014 Well Visit 65+ 2014 Pneumococcal vaccine 65+ (2 of 2 - PPSV23) 06/19/2022 06/19/2021, 03/03/2016 Zoster Vaccine (2 of 2) 06/21/2022 04/26/2022 Fall Risk Assessment 08/21/2023 08/20/2022 Covid-19 Vaccine (5 - 2023-2 5 season) 2024 03/06/2022, 04/06/2021, 08/14/2020, Additional history exists Influenza Vaccine (Season Ended) 2025 03/06/2022, 02/18/2020, 02/15/2020, Additional history exists Medical Devices Implanted Type Area Chuck Tender Device Identifier Shelf Expiration Date Model / Serial / Lot [employer] Universa 5fr 28cm Radiopaque Positioner Braid Tether Firm 2 [id number] - [id number] Implanted:Qty: 1 on 08/20/2022 by Michael Galvan MD at [facility] Left: Ureter [employer] 06/01/2025 [id number] / / [id number] [employer] Universa 5fr 28cm Radiopaque Positioner Braid Tether Firm 2 [id number] - [id number] Implanted:Qty: 1 on 08/20/2022 by Michael Galvan MD at [facility] Right: Ureter [employer] 05/28/2025 [id number] / / [id number] Insurance [facility] MEDICARE ADVANTAGE [facility] MEDIC[facility] Address: [address] [address] [place] [address] [facility] MEDICARE HMO Care Teams Filter Bed Placer Relationship Specialty Start Date End Date Maura Monzon DO [address] [place] [address] PCP - General Internal Medicine 02/27/23 Michael Galvan MD Consulting Physician Urology 08/20/22
--- OUTSIDE RECORDS SUMMARY | 2024-10-16 12:08 | XMS_ITS | Encounter Summary ---
Author Organization [facility] Address [address] [place] [address] Care Team Providers Care Theology Professor Name Role Phone Maura Monzno DO Primary Care Provider [phone] Reason for Visit * Reason Comments Provider Call Encounter Details Date Type Department Care Team (Late st Contact Info) Description 08/28/2023 Telephone [facility] Internal Medicine Medical [facility] [address] [facility] [address] [address] Maura Monzon DO [address] [facility] [address] [place] [address] Provider Call Social History Tobacco Use Types Packs/Day Years Used Date Smoking Tobacco: Never Smokeless Tobacco: Never Alcohol Use Standard Drinks/Week Comments Not Currently 0 (1 standard drink = 0.6 oz pur e alcohol) Feeling Safe Answer Date Recorded Within the last year, have y ou been afraid of your partner or ex-partner? No 04/09/2019 Within the last year, have y ou been humiliated or emotionally abused in other ways by your partner or ex-partner? No Within the last year, have y ou been kicked, hit, slapped, or otherwise physically hurt by your partner or ex-partner? No 04/09/2019 Within the last year, have y ou been raped or forced to have any kind of sexual activity by your partner or ex-partner? No 04/09/2019 Social Connections Answer Date Recorded In a typical week, how many times do you talk on the phone with family, friends, or neighbors? More than three times a week 04/09/2019 How often do you get togethe r with friends or relatives? More than three times a week 04/09/2019 How often do you attend chur ch or worship services? Never 04/09/2019 Do you belong to any clubs o r organizations such as restoration groups, unions, fraternal or athletic groups, or school groups? No 04/09/2019 How often do you attend meet ings of the clubs or organizations you belong to? Never 04/09/2019 Are you , , di vorced, , never , or living with a partner? 04/09/2019 Financial Resource Strain Answer Date R ecorded How hard is it for you to pa y for the very basics like food, housing, medical care, and heating? Not hard at all 06/19/2021 Food Insecurity Answer Date Recorded In the past 12 months, have you worried that your food would run out before you had money to buy more? Never true 06/19/2021 In the past 12 months, did y ou run out of food and didn't have money to buy more? Never true 06/19/2021 Transportation Needs Answer Date Record ed In the past 12 months, has l ack of transportation kept you from medical appointments or from getting medications? 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. Fax and Telephone number CHERYLE as well. Status for referral is pending. DREA @ [facility] for Mahi with information listed above. * Telephone Encounter - Mariel Gallardo - 08/29/2023 11:32 AM CDT Noted. Called and Spoke with Mahi at [facility] in regards to message. Per Mahi, an Insurance Referral was needed for patient's Insurance due to HMO plan for Colonoscopy. Referral will be faxed to Dr[facility] @ [phone] * Telephone Encounter - Jovi Claire - 08/28/2023 1:31 PM CDT Copied from [facility] #[id number]. Topic: Tvjaeeqe-Uf-Erwyzzgh Call >> Aug 28, 2023 1:30 PM Jovi Downey wrote: Caller is requesting to speak with Clinical Care Team. Caller Name: Mahi Joseph office Callback Number: [phone] Clinician Type: Healthcare Professional Call Notes:Mahi Joseph office is calling in to see if paperwork was faxed over to [employer] Is this addressing an immediate patient care need? Yes documented in this encounter Plan of Treatment Upcoming Encounters Date Type Department Care Team (Late st Contact Info) Description 12/15/2024 10:30 AM CDT Office Visit [facility] Internal Medicine Medical [place] [address] [address] [facility] [address] [address] Leroy Elizabeth PA-C [address] [facility] [address] [place] [address] 01/01/2025 11:30 AM CDT Office Visit [facility] Pulmonology [address] [place] [address] Bennie Sullivan, BOWLING PIN REFINISHER [address] [facility] [place] [address] documented as of this encounter Visit Diagnoses Not on filedocumented in this encounter Care Teams Theology Professor Relationship Specialty Start Date End Date Maura Monzon DO [address] [place] [id number] PCP - General Internal Medicine 04/09/19 documented as of this encounter
--- OUTSIDE RECORDS SUMMARY | 2024-10-16 12:08 | XMS_ITS | Encounter Summary ---
Author Organization [facility] Address [address] [place] [address] Care Team Providers Care Automotive Vehicle Inspector Name Role Phone Maura Monzon DO Primary Care Provider [phone] Reason for Visit * Reason Comments Insurance Issues Encounter Details Date Type Department Care Team (Late st Contact Info) Description 03/03/2024 Telephone [facility] Internal Medicine Medical [facility] [address] [address] Maura Monzon DO [address] [facility] [address] [place] [address] Insurance Issues Social History Tobacco Use Types Packs/Day Years [...] often do you attend chur ch or advent services? 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 Monzon and performed on 06/22/23: Lipid panel, HgbA1c, CMP, CBC with diff, PSA, and TSH. Additionally they requested the NPI for [facility]. * Telephone Encounter - Mariah Shea - 03/03/2024 12:51 PM CDT Copied from [facility] #[id number]. Topic: Patient or Caregiver Communication Request >> Mar 03, 2024 12:48 PM Mariah Funk wrote: Patient or Caregiver requesting that a message be sent to Care Team Caller: Kanika on [facility] Patient/Caregiver Callback Number: [phone] (home) Call Notes: Kanika on phi Insurance needs PCP to contact [employer] to let them know PCP is the one who prescribed labs. Number # [phone] Monzon's is the one that ordered the labs from 06/22/2023. Per insurance. documented in this encounter Plan of Treatment Upcoming Encounters Date Type Department Care Team (Late st Contact Info) Description 12/15/2024 10:30 AM CDT Office Visit [facility] Internal Medicine Medical [place] [address] [place] [address] [address] [address] Leroy Elizabeth, PAMarlenaC [address] [facility] [address] [place] [address] 01/01/2025 11:30 AM CDT Office Visit [facility] Pulmonology [address] [place] [address] Bennie Sullivan, UKE DRIVER [address] [place] [address] documented as of this encounter Visit Diagnoses Not on filedocumented in this encounter Care Teams Automotive Vehicle Inspector Relationship Specialty Start Date End Date Maura Monzon DO [address] [facility] [facility] [address] [place] [address] PCP - General Internal Medicine 04/09/19 documented as of this encounter
--- OUTSIDE RECORDS SUMMARY | 2024-10-16 12:08 | XMS_ITS | Clinical Summary ---
Author Organization [facility] Address [address] [place] [address] Care Team Providers Care Chief Fishery Division Name Role Phone Unavailable Primary Care Provider Unavailabl e Source Comments [facility],non-owned Affiliates and Associated Physician Practices is amultiple site organization consisting of ambulatory clinics and hospital sitesin [place], [place], [place] and [place]. This disclosure is being madepursuant to the Care Everywhere program and may not contain all information available regarding this patient. 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 Gender Identity Not on file Sexual Orientation Not on file Plan of Treatment Health Maintenance Due Date Last Done Comments COLOGUARD (AGES 45-75) - COL ON CA SCREENING 1949 COLON MONITORING 1949 COLONOSCOPY - COLON CA SCREENING 1949 CT COLONOGRAPHY - COLON CA SCREENING 1949 Colorectal Cancer Screening 1949 FIT - COLON CA SCREENING 1949 FLEX SIG - COLON CA SCREENING 1949 LIPID TESTING 1949 HEPATITIS C SCREENING 07/24/1967 DTAP/TDAP/TD VACCINES (1 - Tdap) 1968 PNEUMOCOCCAL VACCINE 50+ (1 of 1 - PCV) 07/29/1999 ZOSTER VACCINE (1 of 2) 07/29/1999 COVID-19 VACCINE ( - 2023-2 5 season) 2024 DEPRESSION SCREENING 05/20/2024 MEDICARE AWV CALENDAR YEAR 2024 Respiratory Syncytial Virus (RSV) Vaccine Pt: or over 60 yrs (1 - 1-dose 75+ series) 2024 INFLUENZA VACCINE (Season Ended) 2025 HEPATITIS B VACCINE Aged Out No longe r eligible based on patient's age to complete this topic HIB VACCINE Aged Out No longer eligi ble based on patient's age to complete this topic HPV VACCINE Aged Out No longer eligi ble based on patient's age to complete this topic MENINGOCOCCAL (Group B) VACC INE SHARED DECISION-MAKING Aged Out No longer eligibl e based on patient's age to complete this topic MENINGOCOCCAL GROUPS A/C/Y/W VACCINE Aged Out No longer eligible b ased on patient's age to complete this topic Insurance [employer] MEDICARE ADV HMO & PPO MEDICARE MEDICARE MEDICARE [facility]
--- OUTSIDE RECORDS SUMMARY | 2024-10-16 12:08 | XMS_ITS | Encounter Summary ---
Author Organization [facility] Address [address] [place] [address] Care Team Providers Care Epic Cadence Specialists Name Role Phone Maura Monzon DO Primary Care Provider [phone] Reason for Visit * Reason Comments Clinical Consult Before Scheduling Encounter Details Date Type Department Care Team (Late st Contact Info) Description 10/16/2024 Telephone [facility] Internal Medicine Medical [facility] [address] [facility] [address] [address] Maura Monzon DO [address] [facility] [address] [place] [address] Clinical Consult Before Scheduling Social History Tobacco Use Types Packs/Day Years [...] often do you attend chur ch or mu-ism services? 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 Topic: Symptomatic Care >> October 16, 2024 10:58 AM Nae Santa wrote: Has this patient seen any provider (current or former) at the requested clinic in the past? Yes, Select the appropriate age range and symptom Patient has symptoms and is seeking care. Caller Name: Kanika([facility]) Callback Number: [phone] Call Notes: diarrhea x 2 days getting weaker and weaker taking otc medication and its not helping Age Range/Symptom: Adult 18+ - Diarrhea Does patient have any of the following other urgent symptoms: No urgent symptoms requiring warm call transfer Were you able to schedule appointment within patient's desired timeframe? No [place] the [place] in[place] Unable to schedule appointment within patient's desired timeframe. Patient declined all other options for immediate care, preferring to schedule first available. Scheduled appointment for please advise requesting a call back . If this is not clinically appropriate, please contact patient. documented in this encounter Plan of Treatment Upcoming Encounters Date Type Department Care Team (Late st Contact Info) Description 12/15/2024 10:30 AM CDT Office Visit [facility] Internal Medicine Medical [facility] [address] [facility] [address] [address] Leroy Elizabeth PA-C [address] [facility] [address] [place] [address] 01/01/2025 11:30 AM CDT Office Visit [facility] Pulmonology [facility] [address] [facility] [address] [place] [address] Bennie Sullivan, [facility] [address] [place] [address] documented as of this encounter Visit Diagnoses Not on filedocumented in this encounter Additional Health Concerns Assessment Noted Time PHQ-9 Depression Total Score: 1 07/29/19 25 10:21 AM CDT documented as of this encounter Care Teams Epic Cadence Specialists Relationship Specialty Start Date End Date Maura Monzon DO [address] [facility] [address] [place] [address] PCP - General Internal Medicine 04/09/19 documented as of this encounter
--- OUTSIDE RECORDS SUMMARY | 2024-10-16 12:08 | XMS_ITS | Encounter Summary ---
Author Organization [facility] Address [address] [place] [address] Care Team Providers Care Cuprous Chloride Helper Name Role Phone Maura Monzon DO Primary Care Provider [phone] Reason for Visit * Reason Comments Provider Call Encounter Details Date Type Department Care Team (Late st Contact Info) Description 10/21/2023 Telephone [facility] Internal Medicine Medical [facility] [address] [facility] [address] [address] Maura Monzon DO [address] [facility] [address] [place] [address] Provider Call Social History Tobacco [...] often do you attend chur ch or denominational services? 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 Notified physician practice consultant who will notify the pt once the issue is resolved. * Telephone Encounter - Melissa Qiu - 10/21/2023 1:20 PM CDT Copied from [facility] #[id number]. Topic: [id number] Call >> Oct 21, 2023 1:16 PM Melissa Downey wrote: Caller is requesting to speak with Clinical Care Team. Caller Name: KIRSTY Champagne Office Callback Number: [phone] Clinician Type: Healthcare Professional Call Notes: Calling to check on the status of the insurance referral that they requested for the patient back in June, they have called numerous times and messages have been sent but the referralis still showing as pending they still don't have it. This is for the patient's colonoscopy. Is this addressing an immediate patient care need? Yes documented in this encounter Plan of Treatment Upcoming Encounters Date Type Department Care Team (Late st Contact Info) Description 12/15/2024 10:30 AM CDT Office Visit [facility] Internal Medicine Medical [place] [address] [place] [address] [address] [address] Leroy Elizabeth PA-C [address] [facility] [address] [place] [address] 01/01/2025 11:30 AM CDT Office Visit [facility] Pulmonology [address] [place] [address] Bennie Sullivan, [facility] [address] [place] [address] documented as of this encounter Visit Diagnoses Not on filedocumented in this encounter Care Teams Cuprous Chloride Helper Relationship Specialty Start Date End Date Maura Monzon DO [address] [place] [address] [address] [place] [address] PCP - General Internal Medicine 04/09/19 documented as of this encounter
--- OUTSIDE RECORDS SUMMARY | 2024-10-16 12:08 | XMS_ITS | Encounter Summary ---
Author Organization [facility] Address [address] [facility] [place] [address] Care Team Providers Care Incubator Operator Name Role Phone Unavailable Primary Care Provider Unavailabl e Encounter Details Date Type Department Care Team (Late st Contact Info) Description 10/30/2023 Lab Requisition [facility] - DermPath Lab [address] [place] [address] Shawn Adkins MD [facility] DERMATOLOGY [address] [place] [address] Neoplasm of uncertain behavior of skin Social History Tobacco Use Types Packs/Day Years Used Date Smoking Tobacco: Never Assessed Sex and Gender Information Value Date Recorded Sex Assigned at Not on file 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 Gender Identity Not on file Sexual Orientation Not on file documented as of this encounter Plan of Treatment Not on file documented as of this encounter Procedures Procedure Name Priority Date/Time Associated Diagnosis Comments DERMATOPATHOLOGY Routine 10/30/2023 12:0 0 AM CDT Neoplasm of uncertain behavior of skin documented in this encounter Results * DERMATOPATHOLOGY (10/30/2023 12:00 AM CDT) Case Report Dermatopathology Report Case: [id number] Authorizing Provider: Shawn Adkins MD Collected: 10/30/2023 12:00 AM Ordering Location: [facility] Physician [facility] - Received: 10/31/2023 04:29 PM DermPath Lab Pathologist: Lindsay Leblanc MD Specimen: Skin, right congregational 06/17/202 4 4:31 PM CDT DERMATOPATHOLOGY LABORATORY Final Diagnosis Specimen A. 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 The specimen consists of a shave biopsy measuring 7x6x1 mm. Jar 0. 4 4:31 PM CDT DERMATOPATHOLOGY LABORATORY Microscopic Description Specimen A. SKIN, right congregational: The epidermis shows parakeratosis, full thickness disorderly maturation of keratinocytes, mitoses at different levels, and dyskeratotic cells. 4 4:31 PM CDT DERMATOPATHOLOGY LABORATORY Disclaimer An external and internal positive and negative controls are appropriate for the histochemical, immunohistochemical and immunofluorescence stain(s) in this case (if any), except where stated explicitly. The performance characteristics of the stain(s) cited in this report were developed and its performance characteristic determined by the Dermatopathology Laboratory at [facility], directed by Dr. Justin Kiran. These tests need not be, and therefore are not, approved by the [place] Food and Drug Administration. The tests are used for clinical purposes. Billing Codes Specimen Charges Stain Charges 50572 1 4 4:31 PM CDT DERMATOPATHOLOGY LABORATORY Embedded Images 4 4:31 PM CDT DERMATOPATHOLOGY LABORATORY Pathology/Cytolog y TISSUE SPECIMEN FROM SKIN / Unknown 10/30/2023 10/31/2023 4:29 PM CDT us Shawn Adkins MD LAB - PATHOLOGY/CYTOLOGY JAMIL BILLS Final Result DERMATOPATHOLOGY LABORATORY [facility] - Department of Dermatology [address] [phone] documented in this encounter Visit Diagnoses Diagnosis Neoplasm of uncertain behavior of skin documented in this encounter
--- OUTSIDE RECORDS SUMMARY | 2024-10-16 12:08 | XMS_ITS | Encounter Summary ---
Author Organization [facility] Address [address] [place] [address] Care Team Providers Care Security Operations Manager Name Role Phone Maura Monzon DO Primary Care Provider [phone] Reason for Visit * Reason Comments Question Encounter Details Date Type Department Care Team (Late st Contact Info) Description 10/29/2023 Telephone [facility] Internal Medicine Medical [facility] [address] [facility] [address] [address] Maura Monzon DO [address] [facility] [address] [place] [address] Question Social History Tobacco Use Types Packs/Day Years [...] often do you attend chur ch or tenriism services? 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 However after patient had labs done ordered 06/20/[address] Monzon they were billed for labs as out of network, informing him [facility] is fact out of network with his [employer] insurance. Spouse is asking for letter to be faxed to [facility] that oupatient labs ordered 06/20/[address] Monzon. Fax letter to [phone] with retroactive claim number [id number] on letter. Letter written. In Dr. Monzon to be signed basket. Please route back to me when signed, and I will fax. Also advised Ariana we did not receive results from 06/20/23 labs that were completed. Ariana will contact lab and ask them to send results to us. * Telephone Encounter - Kim Rankin, PCT - 10/29/2023 1:23 PM CDT Copied from [facility] #[id number]. Topic: Patient or Caregiver Communication Request >> Oct 29, 2023 1:20 PM Kim Thomas wrote: Patient or Caregiver requesting advice Caller: on [facility] Patient/Caregiver Callback Number: [phone] (home) Call Notes: states that they need a referral to their insurance for lab. Stating that the dr ordered the lab work in June. Please fax to [phone]. Please advise. This is all the details that she gave me. Please advise. Here is the retro claim # [id number] documented in this encounter Plan of Treatment Upcoming Encounters Date Type Department Care Team (Late st Contact Info) Description 12/15/2024 10:30 AM CDT Office Visit [facility] Internal Medicine Medical [place] [address] [address] [facility] [address] [address] Leroy Elizabeth PA-C [address] [facility] [address] [place] [address] 01/01/2025 11:30 AM CDT Office Visit [facility] Pulmonology [address] [place] [address] Bennie Sullivan, [address] [address] documented as of this encounter Visit Diagnoses Not on filedocumented in this encounter Care Teams Security Operations Manager Relationship Specialty Start Date End Date Maura Monzon DO [address] [place] [address] PCP - General Internal Medicine 04/09/19 documented as of this encounter
--- OUTSIDE RECORDS SUMMARY | 2024-10-16 12:08 | XMS_ITS | Clinical Summary ---
Author Organization [facility] Address [address] [place] [address] Phone Care Team Providers Care Voice Professor Name Role Phone Maura Monzon Primary Care Provider Allergies Active Allergy Reactions Criticality Noted Date Comments Sulfa (Sulfonamide Antibiotics) Unknown 03/21 Medications aspirin (ECOTRIN EC) 81 mg Tablet, Delayed Release (E.C.)Indications:Aorti c atherosclerosis,Atheros clerosis of sitka coronary artery of sitka heart without angina pectoris Take 1 Tablet (81 mg) by mouth daily. 06/20/19 24 Active multivitamin with fmbwqnbo-pocppowy-vcfsn n (Centrum Silver) 0.4 mg-300 mcg- 250 mcg Tablet per tablet 1 tablet(s), Oral, daily, 30 tablet(s), Tablet(s), 0 07/18/19 24 Active lutein 20 mg Tablet 20 mg. 07/18/19 24 Active lisinopriL (PRINIVIL) 10 mg tabletIndications:Benig n hypertension Take 1 Tablet (10 mg) by mouth daily. 100 Tablet 3 05/19/20 24 Active lovastatin (MEVACOR) 20 mg tabletIndications:Pure hypercholesterolemia Take 1 Tablet (20 mg) by mouth daily. 100 Tablet 3 07/29/19 25 Active carvediloL (COREG) 6.25 mg tablet 6.25 mg. 08/22/19 25 Active benzonatate (TESSALON) 200 mg capsule Take 1 Capsule (200 mg) by mouth 3 times daily as needed for Cough. 90 Capsule 09/16/19 25 Active amoxicillin-clavulanate (AUGMENTIN) 875-125 mg tablet Take 1 Tablet by mouth every 12 hours for 7 days. 14 Tablet 10/10/19 25 025 Active donepeziL (ARICEPT) 10 mg tablet Take 1 Tablet (10 mg) by mouth daily at bedtime. 100 Tablet 1 10/14/19 25 Active donepeziL (ARICEPT) 5 mg tablet Take 1 Tablet (5 mg) by mouth daily at bedtime. 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 be havioral disturbance, psychotic disturbance, mood disturbance, or anxiety 09/16/2024 Urolithiasis 09/15/2024 Syncope and collapse 09/15/2024 Transient ischemic attack 09/15/2024 Atherosclerosis of sitka co ronary artery of sitka heart without angina pectoris 06/19/2022 Aortic atherosclerosis 06/19/2022 ULYSSES on CPAP 11/14/2021 Benign hypertension 11/14/2021 Prediabetes 09/30/2020 Hyperlipidemia 04/09/2019 Encounters Date Type Department Care Team Description 10/16/2024 Telephone [facility] Internal Medicine [facility] [place] [address] [address] Maura Monzon, DO Clinical Consult Before Scheduling 10/08/2024 Telephone [facility] Internal Medicine [facility] [place] [address] [address] Maura Monzon, DO Clinical Consult Before Scheduling 10/08/2024 External Device Data STL ABSTRACTION Provider, Abstract 10/07/2024 External Device Data STL ABSTRACTION Provider, Abstract 10/07/2024 External Device Data STL ABSTRACTION Provider, Abstract 10/06/2024 External Device Data STL ABSTRACTION Provider, Abstract 09/22/2024 External Device Data STL ABSTRACTION Provider, Abstract 09/22/2024 External Device Data STL ABSTRACTION Provider, Abstract 09/15/2024 10:00 AM CDT Office Visit [facility] Internal Medicine [facility] [place] [address] [place] [address] Leroy Elizabeth PA-C Moderate dementia without behavioral disturbance, psychotic disturbance, mood disturbance, or anxiety, unspecified dementia type (CMS/HCC) (Primary Dx); Memory loss 09/04/2024 Telephone [facility] [place] [address] [place] [address] Maura Monzon, Erroneous encounter-disregard 09/01/2024 Abstract [facility] [place] [address] [place] [address] Maura Monzon, 08/17/2024 Telephone [facility] [place] [address] [place] [address] Maura Monzon, Needs Orders Written 08/13/2024 Refill [facility] [place] [address] [place] [address] Maura Monzon DO 08/10/2024 Orders Only [facility] [place] [address] [place] [address] Suraj Valdez MD 08/05/2024 External Device Data STL ABSTRACTION Provider, Abstract 07/29/2024 Results Follow-Up [facility] [place] [address] [place] [address] Leroy Elizabeth PA-C CBC WITH DIFFERENTIAL, HEMOGLOBIN A1C, LIPID PANEL, Additional followed-up results: 4 2024 10:30 AM CDT Office Visit [facility] [place] [address] [place] [address] Leroy Elizabeth PA-C Memory changes (Primary Dx); Decreased hearing, unspecified laterality; Pure hypercholesterolemia; Prediabetes; ULYSSES on CPAP; Benign hypertension; Atherosclerosis of sitka coronary artery of sitka heart without angina pectoris 07/25/2024 External Device Data STL ABSTRACTION Provider, Abstract 07/24/2024 External Device Data STL ABSTRACTION Provider, Abstract 07/21/2024 Telephone [facility] Internal Medicine [facility] [address] [address] Maura Monzon, Information; Patient Communication from Last 3 Months Immunizations Immunization Administration Dates Next Due (COMIRNATY)(12 YR UP) COVID- 19 VACCINE, MRNA, SPIKE PROTEIN, LNP, ALMAS(PF) 30 MCG/0.3 ML IM SUSP 02/28/2024 (PREVNAR 13)(6 WKS UP) PNEUM OCOCCAL CONJUGATE (PCV13) 0.5 ML, IM 06/19/2021 (PREVNAR 20)(6 WKS UP) PNEUM OCOCCAL CONJUGATE VACCINE 20-VALENT (PCV20), POLYSACCHARIDE [id number] CONJUGATE, ADJUVANT 0.5 ML (PF) IM 06/19/2022 (SPIKEVAX) (12 YRS UP PRIMAR Y SERIES) COVID-19 VACCINE - MRNA-1273(PF) 100 MCG/0.5 ML IM SUSP 08/14/2020,07/17/2020 INFLUENZA VACCINE HIGH DOSE QUADRIVALENT 65 YR UP PF IM 02/17/2021 INFLUENZA VACCINE HIGH DOSE TRIVALENT SPLIT VIRUS, (65 YR UP), 0.5ML (PF), IM 02/28/2024 Influenza Seasonal Unspecified Formulation IM ,02/14/2019 Family History Medical History Relation Name Comments Heart Attack Brother 1 No Known Problems Brother 2 No Known Problems Brother 3 No Known Problems Daughter 1 No Known Problems Daughter 2 No Known Problems Daughter 3 Healthy Father Other Father tractor ran ove r him Healthy Mother No Known Problems Son Relation Name Status Comments Brother 1 Alive Brother 2 Alive Brother 3 Alive Daughter 1 Alive Daughter 2 Alive Daughter 3 Alive Father Mother Son Alive Social History Tobacco Use Types Packs/Day Years [...] often do you attend chur ch or restorationism services? 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 Not on file Not on file Not on file Last Filed Vital Signs Vital Sign Reading Time Taken Comments Blood Pressure 120/72 09/15/2024 9:47 AM CDT Pulse 70 09/15/2024 9:47 AM CDT Temperature 36.4 C (97.5 F) 09/15/2024 9:47 AM CDT Respiratory Rate 16 09/15/2024 9:47 AM CDT Oxygen Saturation 96% 09/15/2024 9:47 AM CDT Inhaled Oxygen Concentration - - Weight 103.3 kg (227 lb 12.8 oz) 09/15/2024 9:47 AM CDT Height 180.3 cm (5' 11) 09/15/2024 9:47 AM CDT Body Mass Index 31.77 09/15/2024 9:47 AM CDT Plan of Treatment Upcoming Encounters Date Type Department Care Team (Late st Contact Info) Description 12/15/2024 10:30 AM CDT Office Visit [facility] Internal Medicine Medical [place] A [address] [address] Leroy Elizabeth PA-C [address] [place] [address] [place] [address] 01/01/2025 11:30 AM CDT Office Visit [facility] Pulmonology [address] [place] [address] Bennie Sullivan, [facility] [address] [place], [place] [address] [place] [address] Health Maintenance Due Date Last Done Comments FIT/ DNA Q 3 YEARS (AUTO ORDER) 07/29/1967 FIT/FOBT Q 1 YEAR (AUTO ORDER) 07/29/1967 FLEX SIG/CT COLONOGRAPHY Q 5 YEARS (AUTO ORDER) 07/29/1967 DTAP/TDAP/TD VACCINES (1 - Tdap) 1968 COLORECTAL CANCER SCREENING (AUTO ORDER) 1994 Colorectal Cancer Screening (AUTO ORDER) 1994 FIT-DNA Q 3 years 1994 FIT/FOBT Q 1 year 1994 Flex Sig/CT Colonography Q 5 years 1994 ZOSTER VACCINE (1 of 2) 07/29/1999 RSV VACCINE (60+ or ) (1 - 1-dose 75+ series) 2024 COVID-19 Vaccine (4 - season) 2024 02/28/2024, 08/14/2020, 07/17/2020 COLORECTAL SCREENING 05/20/2025 05/20/2015 (Previously completed) Colorectal Cancer Screening 05/20/2025 Medicare Ad[place] ([place]) Preventative Visit/Annual Wellness Visit 2025 06/20/2023, 06/19/2022, 06/19/2022, Additional history exists Postponed from 05/20/2024 (Therapeutic Plan Prohibits) PNEUMOCOCCAL VACCINE 50+ YEARS Completed 06/19/2022, 06/19/2021 INFLUENZA VACCINE Completed 02/28/2024, , 02/17/2021, Additional history exists Procedures Procedure Name Priority Date/Time Associated Diagnosis Comments URINALYSIS W/REFLEX MICROSCOPIC Routine 2024 11:39 AM CDT VITAMIN B12 LEVEL Routine 2024 11:39 AM CDT Memory changes TSH REFLEXIVE Routine 2024 11:39 AM CDT Memory changes COMPREHENSIVE METABOLIC PANEL Routine 2024 11:39 AM CDT Benign hypertension LIPID PANEL Routine 2024 11:39 AM CDT Pure hypercholesterolemia HEMOGLOBIN A1C Routine 2024 11:39 AM CDT Prediabetes CBC WITH DIFFERENTIAL Routine 2024 11:39 AM CDT Benign hypertension from Last 3 Months Results * TSH REFLEXIVE (2024 11:39 AM CDT) TSH 1.00 0.40 - 4.50 mIU/L [facility] alfred Moreno Comment: Test Performed at: [facility] [id number] [address] Carlos Stewart Vo Blood 2024 11:3 9 AM CDT 2024 11:42 AM CDT Leroy Elizabeth PA-C CHEMISTRY ORDERABLES Final Result [facility] [phone] [facility] [address] [phone] * CBC WITH DIFFERENTIAL (2024 11:39 AM CDT) WBC 8.7 3.8 - 10.8 Thousand/u L [facility] RBC 4.31 4.20 - 5.80 Million/uL [facility] HEMOGLOBIN 13.3 13.2 - 17.1 g/dL [facility] HEMATOCRIT 40.8 38.5 - 50.0 % [facility] MCV 94.7 80.0 - 100.0 fL [facility] MCH 30.9 27.0 - 33.0 pg [facility] MCHC 32.6 32.0 - 36.0 g/dL [facility] Comment: For adults, a slight decrease in the calculated MCHC value (in the range of 30 to 32 g/dL) is most likely not clinically significant; however, it should be interpreted with caution in correlation with other red cell parameters and the patient's clinical condition. RDW 11.9 11.0 - 15.0 % [facility] PLATELETS 239 140 - 400 Thousand/u L [facility] MPV 10.1 7.5 - 12.5 fL [facility] NEUTROPHIL ABSOLUTE 4,785 1,500 - 7,800 cells/uL [facility] LYMPHOCYTE ABSOLUTE 3,106 850 - 3,900 cells/uL [facility] MONOCYTE ABSOLUTE 635 200 - 950 cells/uL [facility] EOSINOPHIL ABSOLUTE 148 15 - 500 cells/uL [facility] BASOPHILS ABSOLUTE 26 0 - 200 cells/uL [facility] NEUTROPHIL 55 % [facility] LYMPHOCYTES 35.7 % [facility] MONOCYTE 7.3 % [facility] EOSINOPHILS 1.7 % [facility] BASOPHILS 0.3 % [facility] Comment: Test Performed at: [place] [address] [address] [address] [facility] Blood 2024 11:3 9 AM CDT 2024 11:42 AM CDT Leroy Elizabeth PA-C HEMATOLOGY ORDERABLES Usha l Result [facility] [phone] [place] [address] [address] [phone] * URINALYSIS W/REFLEX MICROSCOPIC (2024 11:39 AM CDT) COLOR UA YELLOW YELLOW [facility] CLARITY UA CLEAR CLEAR [facility] SPECIFIC GRAVITY UA 1.012 1.001 - 1.035 [facility] PH UA 6.0 5.0 - 8.0 [facility]- [place] GLUCOSE UA NEGATIVE NEGATIVE [facility] BILIRUBIN UA NEGATIVE NEGATIVE [facility]- [place] KETONES UA NEGATIVE NEGATIVE [facility]- [facility] BLOOD UA NEGATIVE NEGATIVE [facility]- [place] PROTEIN UA NEGATIVE NEGATIVE [facility]- [place] NITRITE UA NEGATIVE NEGATIVE [facility]- [facility] LEUKOCYTE ESTERASE UA NEGATIVE NEGATIVE [facility]- Moshe Comment: Test Performed at: [place] [address] [address] [address] [facility] 2024 11:3 9 AM CDT 2024 11:42 AM CDT us Leroy Elizabeth PA-C URINE ORDERABLES Final Res ult [facility] [phone] [place] [address] [address] [phone] * (ABNORMAL) HEMOGLOBIN A1C (2024 11:39 AM CDT) HEMOGLOBIN A1C 5.8(H) <5.7 % of total Hgb [facility]no Comment: For someone without known diabetes, a hemoglobin A1c value between 5.7% and 6.4% is consistent with prediabetes and should be confirmed with a follow-up test. For someone with known diabetes, a value <7% indicates that their diabetes is well controlled. A1c targets should be individualized based on duration of diabetes, age, comorbid conditions, and other considerations. This assay result is consistent with an increased risk of diabetes. Currently, no consensus exists regarding use of hemoglobin A1c for diagnosis of diabetes for children. ESTIMATED AVERAGE GLUCOSE (MG/DL) 120 mg/dL [facility]el[facility] ESTIMATED AVERAGE GLUCOSE (MMOL/L) 6.6 mmol/L [facility] Comment: Test Performed at: [place] [address] [place] [address] Carlos Donaldson Blood 2024 11:3 9 AM CDT 2024 11:42 AM CDT Leroy Elizabeth PA-C CHEMISTRY ORDERABLES Final Result [facility] [phone] [facility] [address] [place] [address] * VITAMIN B12 LEVEL (2024 11:39 AM CDT) VITAMIN B12 289 200 - 1100 pg/mL [facility] redd Comment: Please Note: Although the reference range for vitamin B12 is 200-1100 pg/mL, it has been reported that between 5 and 10% of patients with values between 200 and 400 pg/mL may experience neuropsychiatric and hematologic abnormalities due to occult B12 deficiency; less than 1% of patients with values above 400 pg/mL will have symptoms. Test Performed at: [facility] [address] [address] [address] Carlos Donaldson MD Blood 2024 11:3 9 AM CDT 2024 11:42 AM CDT Leroy Elizabeth PA-C CHEMISTRY ORDERABLES Final Result Performing Organization Address City/State/ZIP Co mn Phone Number [facility] [phone] [facility] [place] [address] [place] [address] * (ABNORMAL) LIPID PANEL (2024 11:39 AM CDT) CHOLESTEROL 185 <200 mg/dL [facility] More[facility] HDL 43 > OR = 40 mg/dL [facility] More[facility] TRIGLYCERIDE 125 <150 mg/dL [facility] alfred Moreno LDL CALCULATED 118(H) mg/dL (calc) [facility] alfred Moreno Comment: Reference range: <100 Desirable range <100 mg/dL for primary prevention; <70 mg/dL for patients with CHD or diabetic patients with > or = 2 CHD risk factors. LDL-C is now calculated using the Chary calculation, which is a validated novel method providing better accuracy than the Friedewald equation in the estimation of LDL-C. Иван ALDANA et al. FRANCI. 2013;310(19): 7648-5692 (http://education.[employer]/faq/EPZ977) CHOL/HDL RATIO 4.3 <5.0 (calc) Samantha [facility]elardo Moreno NON-HDL CHOLESTEROL 142(H) <130 mg/dL (calc) [facility] alfred Moreno Comment: For patients with diabetes plus 1 major ASCVD risk factor, treating to a non-HDL-C goal of <100 mg/dL (LDL-C of <70 mg/dL) is considered a therapeutic option. Test Performed at: [place] [address] [address] [phone] [facility] Blood 2024 11:3 9 AM CDT 2024 11:42 AM CDT Leroy Elizabeth PA-C CHEMISTRY ORDERABLES Final Result [facility] [phone] [facility] [address] [address] [phone] * (ABNORMAL) COMPREHENSIVE METABOLIC PANEL (2024 11:39 AM CDT) GLUCOSE 100(H) 65 - 99 mg/dL [facility] Comment: Fasting reference interval For someone without known diabetes, a glucose value between 100 and 125 mg/dL is consistent with prediabetes and should be confirmed with a follow-up test. BUN 16 7 - 25 mg/dL [facility] CREATININE 1.15 0.70 - 1.28 mg/dL [facility] GFR 66 > OR = 60 mL/min/1. 73m2 [facility]Anton More[facility] BUN/CREAT RATIO SEE NOTE: 6 - (calc) [facility] More[facility] Comment: Not Reported: BUN and Creatinine are within reference range. SODIUM 137 135 - 146 mmol/L [facility] POTASSIUM 4.4 3.5 - 5.3 mmol/L [facility] CHLORIDE 103 98 - 110 mmol/L [facility] Moreno CO2 26 20 - 32 mmol/L [facility] CALCIUM 9.0 8.6 - 10.3 mg/dL [facility] TOTAL PROTEIN 6.6 6.1 - 8.1 g/dL [facility] Josh ALBUMIN 4.2 3.6 - 5.1 g/dL [facility] Josh GLOBULIN 2.4 1.9 - 3.7 g/dL (calc) [facility] Moreno ALBUMIN/GLOBULIN RATIO 1.8 1.0 - 2.5 (calc) [facility] BILIRUBIN TOTAL 1.0 0.2 - 1.2 mg/dL [facility] ALKALINE PHOSPHATASE 70 35 - 144 U/L [facility] AST 19 10 - 35 U/L [facility] ALT 10 9 - 46 U/L [facility] Moreno Comment: Test Performed at: [facility] [address] [place] [address] Carlos Donaldson Blood 2024 11:3 9 AM CDT 2024 11:42 AM CDT us Leroy Elizabeth PA-C CHEMISTRY ORDERABLES Final Result [facility] [phone] [facility] [address] [place] [address] from Last 3 Months Insurance [facility] [id number] RX [facility] Medicare Part B Care Teams Voice Professor Relationship Specialty Start Date End Date Maura Monzon DO [address] [place] [address] [address] [place] [address] PCP - General Internal Medicine 04/09/19
--- NOTE | 2024-10-16 12:17 | ED_ITS ---
HPI - Weakness General Chief complaint: Weakness Stated complaint: weakness Time Seen by Provider: 10/16/24 12:13 Source: patient Mode of arrival: ambulatory Limitations: no limitations History of Present Illness HPI Narrative: patient is a 74-year-old male with weakness generalized and diarrhea for the past 4 days. he has recently been started on Augmentin for a sinus infection. No abdominal pains. Stool is watery but not overly malodorous. MD Complaint: generalized weakness and lack of energy Onset (ago): day(s) (4) Duration: constant Location: other ( no pain) Migration: none Severity: mild Severity scale (1-10): 1 Quality: other ( no pain) Relieving factors: none Exacerbating factors: none Context: new medication Associated symptoms: denies other symptoms Related Data Home Medications ?Medication ?Instructions ?Recorded ?Confirmed ?Last Taken ?Type lisinopril 10 mg tablet 10 mg PO DAILY 06/20/23 08/02/23 Unknown History aspirin 81 mg tablet,delayed 81 mg PO BID 08/02/23 08/02/23 Unknown History release carvedilol 6.25 mg tablet 6.25 mg PO DAILY 08/02/23 08/02/23 Unknown History Allergies Allergy/AdvReac Type Severity Reaction Status Date / Time Sulfa (Sulfonamide Allergy Unknown Unknown Verified 10/16/24 12:11 Antibiotics) Review of Systems 2 Review of Systems: All systems reviewed & are unremarkable except as noted in HPI and below Constitutional: Constitutional: Reports no additional constitutional complaints Eyes: Eyes: Reports no additional eye complaints ENT: Reports system reviewed and no additional complaints, except as documented Cardiovascular: Cardiovascular: Reports no additional cardiovascular complaints Respiratory: Respiratory: Reports no additional respiratory complaints Gastrointestinal: Gastrointestinal: Reports no additional gastrointestinal complaints Genitourinary: Genitourinary: Reports no additional male genitourinary complaints Musculoskeletal: Musculoskeletal: Reports no additional musculoskeletal complaints Integumentary/Breasts: Skin/Breast: Reports system reviewed and no additional complaints, except as docu Neurologic: Reports system reviewed and no additional complaints, except as documented Psychiatric: Psychiatric: Reports no additional psychiatric complaints Endocrine: Endocrine: Reports no additional endocrine complaints Hematologic/Lymphatic: Hematologic/Lymphatic: Reports no additional hematologic/lymphatic complaints Allergic/Immunologic: Allergic/Immunologic: Reports no additional allergic/immunologic complaints PMFSH Past Medical History Medical History CAD (coronary artery disease) HTN (hypertension) Hypercholesterolemia Family History Family History Other Cerebrovascular accident Diabetes mellitus Family history of malignant neoplasm Social History Social History Smoking status: Never smoker Second hand tobacco smoke exposure: No Alcohol intake: never Substance use: never Substance use type: does not use Do You Feel Safe in your Home?: Yes Lack of Transportation: No Lack of Food: Never True Current Housing: Decline to Answer Concerned About Future Housing: No Difficulty Paying Gas/Electric Bills: No Difficulty Paying for Meds: No Currently Unemployed: No Education: High School Diploma/GED Difficulty w/ Childcare or Family Care: No Gender identity (if verbalized by the patient): Male Spiritual care concerns: No Exam 2 Const: General: ill appearing Nutritional Appearance: well nourished O rientation/consciousness: patient oriented x3 Limitations: no limitations HENMT: Head: normal to inspection Ears: external ears normal F nirmala/Nose/Sinus: Normal external nose present Eyes: Conjunctivae: conjunctivae normal Pupils: Equal, round and reactive pupils present EOM: EOMs intact bilaterally Neck: Neck: normal visual inspection Chest: Chest palpation & inspection: normal inspection of the chest Resp: Effort & Inspection: normal respiratory effort and not labored A uscultation: clear to auscultation bilaterally and no crackles Cardio: Rate: regular rate Rhythm: regular rhythm Heart sounds: no murmurs GI: Inspection: non-distended GI Palp: Yes Soft to palpation, No Tenderness to palpation present (GI), No Guarding due to palpation present (GI), No Rigid due to palpation, No Hernia present, No Palpable mass present and No Rebound tenderness present Auscultation: normal bowel sounds : General: Yes bladder normal to palpation Back/Spine/Pelvis: Back: no CVA tenderness Skin: General skin exam: normal color Rashes: no rashes Wounds: no wounds Neuro: General: patient oriented x3, moves all extremities, no meningeal signs and no focal motor deficits Cranial nerves: Yes Nystagmus not present S peech: normal speech Gait exam (Neuro): Normal gait present Other: NIH score is 0, fast exam negative, GCS 15 Extrem: General: normal to inspection Psych: Mental Status: mental status grossly normal Affect: normal affect Attitude: cooperative Course Vital Signs Vital signs: Vital Signs Temperature 36.3 C L 10/16/24 12:05 Pulse Rate 83 10/16/24 12:05 Respiratory Rate 17 10/16/24 12:05 Blood Pressure 78/44 L 10/16/24 12:05 Pulse Oximetry 95 10/16/24 12:05 Oxygen Delivery Room Air 10/16/24 12:05 Temperature 36.6 C 10/16/24 15:17 Pulse Rate 74 10/16/24 15:17 Respiratory Rate 20 10/16/24 15:17 Blood Pressure 115/58 L 10/16/24 15:17 Pulse Oximetry 97 10/16/24 15:17 Oxygen Delivery Room Air 10/16/24 15:17 MDM - Weakness MDM Narrative Medical decision making narrative: Patient is a 74-year-old male with diarrhea for the past 4 days. He is newly on Augmentin. Will check C diff and other labs at this time. Lab Data Attestation: I reviewed the patient's lab results. 10/16/24 12:32 10/16/24 12:32 Labs: Lab Results 10/16/24 10/16/24 10/16/24 Range/Units 12:19 12:23 12:32 WBC 18.2 H (4.8-10.8) K/mm3 RBC 3.91 L (4.70-6.10) M/mm3 Hgb 11.9 L (12.4-15.3) g/dL Hct 35.9 L (37.0-46.0) % MCV 91.8 (78.0-102.0) fL MCH 30.4 (27.0-31.0) pg MCHC 33.1 (32-36) g/dL RDW 12.1 (11.6-14.4) % Plt Count 209 (150-420) K/mm3 MPV 9.1 (8.7-11.0) fl Immature Gran % (Auto) 0.5 H (0.0-0.0) % Neut % (Auto) 79.4 H (50.0-70.0) % Lymph % (Auto) 12.8 L (18.0-42.0) % Creek % (Auto) 6.3 (2.0-11.0) % Eos % (Auto) 0.8 L (1.0-6.0) % Baso % (Auto) 0.2 (0.0-1.0) % Lymph # (Auto) 2.34 (1.10-4.50) K/mm3 Creek # (Auto) 1.14 H (0.10-0.90) K/mm3 Eos # (Auto) 0.15 (0.02-0.50) K/mm3 Baso # (Auto) 0.04 (0.00-0.10) K/mm3 Abs Immat Gran (auto) 0.09 H (0.00-0.00) K/mm3 Absolute Neuts (auto) 14.48 H (1.70-7.20) K/mm3 Absolute Nucleated RBC 0.00 (0.00-0.00) K/mm3 Nucleated RBC % 0.0 (0-0.0) % Sodium 136 L (137-145) mmol/L Potassium 3.7 (3.4-5.0) mmol/L Chloride 106 (98-107) mmol/L Carbon Dioxide 26 (22-30) mmol/L Anion Gap 4 (4-12) mmol/L BUN 17 (9-20) mg/dL Creatinine 1.38 H (0.7-1.3) mg/dL Estim Creat Clear Calc 50 ml/min Estimated GFR 50 L (59 - ) Glucose 109 (65-110) mg/dL Calculated Osmolality 284 L (285-295) mOsm/kg Lactic Acid 0.9 (0.4-2.0) mmol/L Calcium 8.5 (8.4-10.2) mg/dL Magnesium 2.0 (1.6-2.3) mg/dL Total Bilirubin 1.2 (0.2-1.3) mg/dL AST 31 (17-59) U/L ALT 16 (6-50) U/L Alkaline Phosphatase 83 (38-126) U/L Total Protein 6.5 (6.3-8.2) g/dL Albumin 3.6 (3.5-5.1) g/dL Lipase 77 (23-300) U/L C. difficile (PCR) Positive A* (NEGATIVE) Discharge Plan Discharge Clinical Impression: C. difficile diarrhea, THOM (acute kidney injury), Acute dehydration Patient Disposition: Home Condition: Improved Instructions: C. Diff (Clostridioides Difficile) Infection (DC) Additional Instructions: Please stop the Augmentin. If you have continued sinus infection talk to your primary doctor. Take the vancomycin as prescribed. Come back to the ER for worse symptoms. Have a primary doctor recheck your kidney function. Patient Language: Kinyarwanda Prescriptions: New vancomycin 125 mg capsule 125 mg PO QID 10 Days Qty: 40 0RF No Action lisinopril 10 mg Tablet 10 mg PO DAILY carvedilol 6.25 mg tablet 6.25 mg PO DAILY aspirin 81 mg Tablet,Delayed Release (Dr/Ec) 81 mg PO BID rosuvastatin 20 mg tablet 20 mg PO DAILY Qty: 90 0RF clopidogrel 75 mg tablet 75 mg PO DAILY Qty: 20 0RF Follow-up/Referrals: UNKNOWN,DOCTOR [Non-Staff] - Time of Disposition: 16:11
[2024-10-16] MEDS: SODIUM CHLORIDE 0.9% IV 1,000 ML 999 ML IV CONT ×2 (12:21→14:39)
--- OUTSIDE RECORDS SUMMARY | 2024-10-16 12:35 | XMS_ITS | Encounter Summary ---
Author Organization [facility] Address [address] [place] [address] Care Team Providers Care Transport Coordinator Name Role Phone Unavailable Primary Care Provider Unavailabl e Encounter Details Date Type Department Care Team (Late st Contact Info) Description 10/30/2023 Lab Requisition [facility] - DermPath Lab [address] [place] [address] Shawn Adkins MD [facility] DERMATOLOGY [address] [place] [id number] Neoplasm of uncertain behavior of skin Social History Tobacco Use Types Packs/Day Years Used Date Smoking Tobacco: Never Assessed Sex and Gender Information Value Date Recorded Sex Assigned at Not on file 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 Gender Identity Not on file Sexual Orientation Not on file documented as of this encounter Plan of Treatment Not on file documented as of this encounter Procedures Procedure Name Priority Date/Time Associated Diagnosis Comments DERMATOPATHOLOGY Routine 10/30/2023 12:0 0 AM CDT Neoplasm of uncertain behavior of skin documented in this encounter Results * DERMATOPATHOLOGY (10/30/2023 12:00 AM CDT) Case Report Dermatopathology Report Case: [id number] Authorizing Provider: Shawn Adkins MD Collected: 10/30/2023 12:00 AM Ordering Location: [facility] - Received: 10/31/2023 04:29 PM DermPath Lab Pathologist: Lindsay Leblanc MD Specimen: Skin, right oriental orthodox 06/17/202 4 4:31 PM CDT DERMATOPATHOLOGY LABORATORY Final Diagnosis Specimen A. 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 The specimen consists of a shave biopsy measuring 7x6x1 mm. Jar 0. 4 4:31 PM CDT DERMATOPATHOLOGY LABORATORY Microscopic Description Specimen A. SKIN, right oriental orthodox: The epidermis shows parakeratosis, full thickness disorderly [...] characteristic determined by the Dermatopathology Laboratory at [facility], directed by Dr. Justin Kiran. These tests need not be, and therefore are not, approved by the [place] Food and Drug Administration. The tests are used for clinical purposes. Billing Codes Specimen Charges Stain Charges 33696 1 4 4:31 PM CDT DERMATOPATHOLOGY LABORATORY Embedded Images 4 4:31 PM CDT DERMATOPATHOLOGY LABORATORY Pathology/Cytolog y TISSUE SPECIMEN FROM SKIN / Unknown 10/30/2023 10/31/2023 4:29 PM CDT us Shawn Adkins MD LAB - PATHOLOGY/CYTOLOGY JAMIL BILLS Final Result DERMATOPATHOLOGY LABORATORY [facility] - Department of Dermatology [address] [phone] documented in this encounter Visit Diagnoses Diagnosis Neoplasm of uncertain behavior of skin documented in this encounter
--- OUTSIDE RECORDS SUMMARY | 2024-10-16 12:35 | XMS_ITS | Encounter Summary ---
Author Organization [facility] Address [address] [place] [address] Care Team Providers Care Splitting Machine Operator Helper Name Role Phone Maura Monzon DO Primary Care Provider [phone] Reason for Visit * Reason Comments Insurance Issues Encounter Details Date Type Department Care Team (Late st Contact Info) Description 03/03/2024 Telephone [facility] Internal Medicine Medical [facility] [address] [address] Maura Monzon DO [address] [place] [address] Insurance Issues Social History Tobacco [...] often do you attend chur ch or mandaen services? 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 Monzon and performed on 06/22/23: Lipid panel, HgbA1c, CMP, CBC with diff, PSA, and TSH. Additionally they requested the NPI for [facility]. * Telephone Encounter - Mariah Shea - 03/03/2024 12:51 PM CDT Copied from [facility] #[id number]. Topic: Patient or Caregiver Communication Request >> Mar 03, 2024 12:48 PM Mariah Funk wrote: Patient or Caregiver requesting that a message be sent to Care Team Caller: Kanika on [facility] Patient/Caregiver Callback Number: [phone] (home) Call Notes: Kanika on phi Insurance needs PCP to contact [employer] to let them know PCP is the one who prescribed labs. Number # [phone] Monzon's is the one that ordered the labs from 06/22/2023. Per insurance. documented in this encounter Plan of Treatment Upcoming Encounters Date Type Department Care Team (Late st Contact Info) Description 12/15/2024 10:30 AM CDT Office Visit [facility] Internal Medicine Medical [place] [address] [place] [address] [address] [address] Leroy Elizabeth, PAMarlenaC [address] [facility] [address] [place] [address] 01/01/2025 11:30 AM CDT Office Visit [facility] Pulmonology [address] [place] [address] Bennie Sullivan, REFUGE MANAGER [address] [place] [address] documented as of this encounter Visit Diagnoses Not on filedocumented in this encounter Care Teams Splitting Machine Operator Helper Relationship Specialty Start Date End Date Maura Monzon DO [address] [place] [address] PCP - General Internal Medicine 04/09/19 documented as of this encounter
--- OUTSIDE RECORDS SUMMARY | 2024-10-16 12:35 | XMS_ITS | Clinical Summary ---
Author Organization [facility] Address [address] [place] [address] Care Team Providers Care Lens Inspector Name Role Phone Unavailable Primary Care Provider Unavailabl e Source Comments [facility],non-owned Affiliates and Associated Physician Practices is amultiple site organization consisting of ambulatory clinics and hospital sitesin [place], [place], [place] and [place]. This disclosure is being madepursuant to the Care Everywhere program and may not contain all information available regarding this patient. 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
--- OUTSIDE RECORDS SUMMARY | 2024-10-16 12:36 | XMS_ITS | Clinical Summary ---
Author Organization [facility] Address [address] [place] [address] Care Team Providers Care Automotive Title Clerk Name Role Phone Michael Galvan MD Unavailable Maura Monzon DO Primary Care Provider [phone] Allergies No known active allergies Medications lisinopriL (PRINIVIL,ZESTR IL) 20 mg tablet Take 1 tablet (20 mg total) by mouth daily Active lovastatin (MEVACOR) 20 mg tablet Take 1 tablet (20 mg total) by mouth nightly Active Active Problems Problem Noted Date Diagnosed Date Kidney stone 07/04/2022 Overview (07/04/2022): Added automatically from request for surgery [id number] Surgical History Surgery Date Site/Laterality Comments TONSILLECTOMY/ADENOIDECTOMY [...] on file 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 Gender Identity Not on file Sexual [...] 104.3 kg (230 lb) 07/27/2022 1:20 PM HOMELAND SECURITY PROGRAM SPECIALIST Height 182.9 cm (6') 07/27/2022 1:20 PM HOMELAND SECURITY PROGRAM SPECIALIST Body Mass Index 31.19 07/27/2022 1:20 PM HOMELAND SECURITY PROGRAM SPECIALIST Plan of Treatment Health Maintenance Due Date [...] history exists Medical Devices Implanted Type Area Associate Theatre Professor Device Identifier Shelf Expiration Date Model / Serial / Lot [employer] Universa 5fr 28cm Radiopaque Positioner Braid Tether Firm 2 [id number] - [id number] Implanted:Qty: 1 on 08/20/2022 by Michael Galvan MD at [facility] Left: Ureter [employer] 06/01/2025 [id number] / / [id number] [employer] Universa 5fr 28cm Radiopaque Positioner Braid Tether Firm 2 [id number] - [id number] Implanted:Qty: 1 on 08/20/2022 by Michael Galvan MD at [facility] Right: Ureter [employer] 05/28/2025 [id number] / / [id number] Insurance [facility] MEDICARE ADVANTAGE [facility] MEDICARE HMO Care Teams Automotive Title Clerk Relationship Specialty Start Date End Date Maura Monzon DO [address] [place] [address] PCP - General Internal Medicine 02/27/23 Michael Galvan MD Consulting Physician Urology 08/20/22
--- OUTSIDE RECORDS SUMMARY | 2024-10-16 12:36 | XMS_ITS | Clinical Summary ---
Author Organization [facility] Address [address] [place] [address] Phone Care Team Providers Care Broadcast Journalist Name Role Phone Maura Monzon Primary Care Provider [phone] Allergies No known active allergies Medications lisinopril [...] on file Medical Devices Implanted Type Area Polysomnographic Tech Device Identifier Shelf Expiration Date Model / Serial / Lot Technis 1-Piece Iol With Simplicity Delivery System Implanted:Qty: 1 on 08/13/2022 by Antelmo Barry MD at [facility] Right: Eye 03/31/2025 [id number] / [id number] / [id number] Technis 1-Piece Iol With Simplicity Delivery System Implanted:Qty: 1 on 09/10/2022 by Antelmo Barry MD at [facility] Left: Eye [employer] 06/17/2024 [id number] / [id number] / [id number] Insurance on file Care Teams Broadcast Journalist Relationship Specialty Start Date End Date Maura Monzon DO [address] [facility] [address] [place] [address] PCP - General Internal Medicine 08/03/22
--- OUTSIDE RECORDS SUMMARY | 2024-10-16 12:36 | XMS_ITS | Encounter Summary ---
Author Organization [facility] Address [address] [place] [address] Care Team Providers Care Hydroblaster Name Role Phone Maura Monzon DO Primary Care Provider [phone] Reason for Visit * Reason Comments Question Encounter Details Date Type Department Care Team (Late st Contact Info) Description 10/29/[address] [facility] Internal Medicine Medical [facility] [address] [address] Maura Monzon DO [address] [facility] [address] [place] [address] Question Social History Tobacco Use [...] often do you attend chur ch or anglican services? 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 Monzon. Fax letter to [phone] with retroactive claim number [id number] on letter. Letter written. In Dr. Monzon to be signed basket. Please route back to me when signed, and I will fax. Also advised Ariana we did not receive results from 06/20/23 labs that were completed. Ariana will contact lab and ask them to send results to us. * Telephone Encounter - Kim Rankin, PCT - 10/29/2023 1:23 PM CDT [address] from [facility] #[id number]. Topic: Patient or Caregiver Communication Request >> Oct 29, 2023 1:20 PM Kim Thomas wrote: Patient or Caregiver requesting advice Caller: on [facility] Patient/Caregiver Callback Number: [phone] (home) Call Notes: states that they need a referral to their insurance for lab. Stating that the dr ordered the lab work in June. Please fax to [phone]. Please advise. This is all the details that she gave me. Please advise. Here is the retro claim # [id number] documented in this encounter Plan of Treatment Upcoming Encounters Date Type Department Care Team (Late st Contact Info) Description 12/15/2024 10:30 AM CDT Office Visit [facility] Internal Medicine Medical [place] [address] [address] [address] Leroy Elizabeth PA-C [address] [facility] [address] [place] [address] 01/01/2025 11:30 AM CDT Office Visit [facility] Pulmonology [address] [place] [address] Bennie Sullivan, [address] [address] documented as of this encounter Visit Diagnoses Not on filedocumented in this encounter Care Teams Hydroblaster Relationship Specialty Start Date End Date Maura Monzon DO [address] [place] [address] PCP - General Internal Medicine 04/09/19 documented as of this encounter
--- OUTSIDE RECORDS SUMMARY | 2024-10-16 12:36 | XMS_ITS | Clinical Summary ---
Author Organization [facility] Address [address] [place] [address] Phone Care Team Providers Care Accordion Maker Name Role Phone Maura Monzon Primary Care Provider [phone] Allergies Active Allergy Reactions Criticality Noted Date Comments Sulfa (Sulfonamide Antibiotics) Unknown 03/21 Medications aspirin (ECOTRIN EC) 81 mg Tablet, Delayed Release (E.C.)Indications:Aorti c atherosclerosis,Atheros clerosis of pen[place] coronary artery of [place] heart without angina pectoris Take 1 Tablet (81 mg) by mouth daily. 06/20/19 24 Active multivitamin with vnsvzoce-ildumqei-bgnqf n (Centrum Silver) 0.4 mg-300 mcg- 250 [...] 09/15/2024 Transient ischemic attack 09/15/2024 Atherosclerosis of [place] co ronary artery of [place] heart without angina pectoris 06/19/2022 Aortic atherosclerosis 06/19/2022 ULYSSES on CPAP 11/14/2021 Benign hypertension 11/14/2021 Prediabetes 09/30/2020 Hyperlipidemia 04/09/2019 Encounters Date Type Department Care Team Description 10/16/[address] [facility] Internal Medicine [facility] [place] [address] [address] Maura Monzon, DO Clinical Consult Before Scheduling 10/08/[address] [facility] Internal Medicine [facility] [place] [address] [address] Maura Monzon, DO Clinical Consult Before Scheduling 10/08/2024 External Device Data STL ABSTRACTION Provider, Abstract 10/07/2024 External Device Data STL ABSTRACTION Provider, Abstract 10/07/2024 External Device Data STL ABSTRACTION Provider, Abstract 10/06/2024 External Device Data STL ABSTRACTION Provider, Abstract 09/22/2024 External Device Data STL ABSTRACTION Provider, Abstract 09/22/2024 External Device Data STL ABSTRACTION Provider, Abstract 09/15/2024 10:00 AM CDT Office Visit [facility] Internal Medicine [facility] [place] [address] [place] [address] Leroy Elizabeth PA-C Moderate dementia without behavioral disturbance, psychotic disturbance, mood disturbance, or anxiety, unspecified dementia type (CMS/HCC) (Primary Dx); Memory loss 09/04/2024 Telephone [facility] [place] [address] [place] [address] Maura Monzon, Erroneous encounter-disregard 09/01/2024 Abstract [facility] [place] [address] [place] [address] Maura Monzon, 08/17/2024 Telephone [facility] [place] [address] [place] [address] Maura Monzon, Needs Orders Written 08/13/2024 Refill [facility] [place] [address] [place] [address] Maura Monzon DO 08/10/2024 Orders Only [facility] [place] [address] [place] [address] Suraj Valdez MD 08/05/2024 External Device Data STL ABSTRACTION Provider, Abstract 07/29/2024 Results Follow-Up [facility] [place] [address] [place] [address] Leroy Elizabeth PA-C CBC WITH DIFFERENTIAL, HEMOGLOBIN A1C, LIPID PANEL, Additional followed-up results: 4 2024 10:30 AM CDT Office Visit [facility] [place] [address] [place] [address] Leroy Elizabeth PA-C Memory changes (Primary Dx); Decreased hearing, unspecified laterality; Pure hypercholesterolemia; Prediabetes; ULYSSES on CPAP; Benign hypertension; Atherosclerosis of [place] coronary artery of [place] heart without angina pectoris 07/25/2024 External Device Data STL ABSTRACTION Provider, Abstract 07/24/2024 External Device Data STL ABSTRACTION Provider, Abstract 07/21/[address] [facility] Internal Medicine Medical [place] [facility] [address] [address] Maura Monzon, Information; Patient Communication from Last 3 Months Immunizations Immunization Administration Dates Next Due (COMIRNATY)(12 YR UP) COVID- 19 VACCINE, MRNA, SPIKE PROTEIN, LNP, ALMAS(PF) 30 MCG/0.3 ML IM SUSP 02/28/2024 (PREVNAR 13)(6 WKS UP) PNEUM OCOCCAL CONJUGATE (PCV13) 0.5 ML, IM 06/19/2021 (PREVNAR 20)(6 WKS UP) PNEUM OCOCCAL CONJUGATE VACCINE 20-VALENT (PCV20), POLYSACCHARIDE [id number] CONJUGATE, ADJUVANT 0.5 ML (PF) IM 06/19/2022 [...] often do you attend chur ch or synagogue services? 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 Internal Medicine Medical [place] A [address] [address] Leroy Elizabeth PA-C [address] [place] [address] [place] [address] 01/01/2025 11:30 AM CDT Office [facility] Pulmonology [address] [place] [address] Bennie Sullivan, [facility] [address] [place], [place] [address] [place] [address] Health Maintenance Due Date Last [...] completed) Colorectal Cancer Screening 05/20/2025 Medicare Advantage ([place]) Preventative Visit/Annual Wellness Visit 2025 06/20/2023, 06/19/2022, [...] CDT) TSH 1.00 0.40 - 4.50 mIU/L [facility] alfred Moreno Comment: Test Performed at: [email or web address] [address] [address] [address] Carlos Stewart Vo Blood 2024 11:3 9 AM CDT 2024 11:42 AM CDT Leroy Elizabeth PA-C CHEMISTRY ORDERABLES Final Result [facility] [phone] [facility] [address] [address] * CBC WITH DIFFERENTIAL (2024 11:39 AM [...] Diagnostics-S t Josh Comment: Test Performed at: [facility] [place] [address] [address] [address] [facility] Blood 2024 11:3 9 AM CDT 2024 11:42 AM CDT Leroy Elizabeth PA-C HEMATOLOGY ORDERABLES Usha l Result [facility] [phone] [place] [address] [address] [address] * URINALYSIS W/REFLEX MICROSCOPIC (2024 11:39 AM CDT) COLOR UA YELLOW YELLOW [facility] CLARITY UA CLEAR CLEAR [facility] SPECIFIC GRAVITY UA 1.012 1.001 - 1.035 [facility]- Moshe PH UA 6.0 5.0 - 8.0 [facility]- [place] GLUCOSE UA NEGATIVE NEGATIVE [facility]- [place] BILIRUBIN UA NEGATIVE NEGATIVE [facility]- [place]he KETONES UA NEGATIVE NEGATIVE [facility]- Moshe BLOOD UA NEGATIVE NEGATIVE [facility]- [facility]he PROTEIN UA NEGATIVE NEGATIVE [facility] Gener[facility]- Moshe NITRITE UA NEGATIVE NEGATIVE [facility]- [facility] LEUKOCYTE ESTERASE UA NEGATIVE NEGATIVE [facility]- Moshe Comment: Test Performed at: [place] [address] [address] [address] [facility] 2024 11:3 9 AM CDT 2024 11:42 AM CDT us Leroy Elizabeth PA-C URINE ORDERABLES Final Res ult [facility] [phone] [place] [address] [address] [address] * (ABNORMAL) HEMOGLOBIN A1C (2024 11:39 AM CDT) HEMOGLOBIN A1C 5.8(H) <5.7 % of total Hgb [facility] alfred Moreno Comment: For someone without known [...] children. ESTIMATED AVERAGE GLUCOSE (MG/DL) 120 mg/dL [facility] UpAbel[facility]Mren[facility] ESTIMATED AVERAGE GLUCOSE (MMOL/L) 6.6 mmol/L [facility] Moreno Comment: Test Performed at: [facility] [place] [address] [place] [address] Carlos Donaldson Blood 2024 11:3 9 AM CDT 2024 11:42 AM CDT Leroy Elizabeth PA-C CHEMISTRY ORDERABLES Final Result [facility] [phone] [facility] [place] [address] [place] [address] * VITAMIN B12 LEVEL (2024 11:39 AM CDT) VITAMIN B12 289 200 - 1100 pg/mL [facility] UpRowdy redd Comment: Please Note: Although the reference range for vitamin B12 is 200-1100 pg/mL, it has been reported that between 5 and 10% of patients with values between 200 and 400 pg/mL may experience neuropsychiatric and hematologic abnormalities due to occult B12 deficiency; less than 1% of patients with values above 400 pg/mL will have symptoms. Test Performed at: [facility] [address] [address] Carlos Donaldson MD Blood 2024 11:3 9 AM CDT 2024 11:42 AM CDT Leroy Elizabeth PA-C CHEMISTRY ORDERABLES Final Result Performing Organization Address City/State/ZIP Co ks Phone Number [facility] [phone] [facility] [address] [place] [address] * (ABNORMAL) LIPID PANEL (2024 11:39 AM CDT) CHOLESTEROL 185 <200 mg/dL [facility] GeneraytorAnton alfred Moreno HDL 43 > OR = 40 mg/dL [facility] GeneraytorAnton alfred Moreno TRIGLYCERIDE 125 <150 mg/dL [facility] Gener[facility]tor alfred Moreno LDL CALCULATED 118(H) mg/dL (calc) [facility] GeneraytorAnton alfred Moreno Comment: Reference range: <100 Desirable range <100 mg/dL for primary prevention; <70 mg/dL for patients with CHD or diabetic patients with > or = 2 CHD risk factors. LDL-C is now calculated using the Chary calculation, which is a validated novel method providing better accuracy than the Friedewald equation in the estimation of LDL-C. Иван ALDANA et al. FRANCI. 2013;310(19): 1434-9310 (http://education.[employer]/faq/YRV366) CHOL/HDL RATIO 4.3 <5.0 (calc) Samantha GeneraytorAbelardo Moreno NON-HDL CHOLESTEROL 142(H) <130 mg/dL (calc) [facility] GeneraytorAnton alfred Moreno Comment: For patients with diabetes plus 1 major ASCVD risk factor, treating to a non-HDL-C goal of <100 mg/dL (LDL-C of <70 mg/dL) is considered a therapeutic option. Test Performed at: [facility] [place] [address] [address] [address] [facility] Blood 2024 11:3 9 AM CDT 2024 11:42 AM CDT Leroy Elizabeth PA-C CHEMISTRY ORDERABLES Final Result [facility] [phone] [facility] [address] [address] [address] * (ABNORMAL) COMPREHENSIVE METABOLIC PANEL (2024 11:39 AM CDT) GLUCOSE 100(H) 65 - 99 mg/dL [email or web address] Moreno Comment: Fasting reference interval For someone without known diabetes, a glucose value between 100 and 125 mg/dL is consistent with prediabetes and should be confirmed with a follow-up test. BUN 16 7 - 25 mg/dL [email or web address] alfred Moreno CREATININE 1.15 0.70 - 1.28 mg/dL [email or web address] alfred Moreno GFR 66 > OR = 60 mL/min/1. 73m2 [email or web address] Moreno BUN/CREAT RATIO SEE NOTE: 6 - (calc) [email or web address] Moreno Comment: Not Reported: BUN and Creatinine are within reference range. SODIUM 137 135 - 146 mmol/L [email or web address] alfred Moreno POTASSIUM 4.4 3.5 - 5.3 mmol/L [email or web address] alfred Moreno CHLORIDE 103 98 - 110 mmol/L [email or web address] alfred Moreno CO2 26 20 - 32 mmol/L [email or web address] Josh CALCIUM 9.0 8.6 - 10.3 mg/dL [facility] TOTAL PROTEIN 6.6 6.1 - 8.1 g/dL [email or web address] Josh ALBUMIN 4.2 3.6 - 5.1 g/dL [email or web address] Josh GLOBULIN 2.4 1.9 - 3.7 g/dL (calc) [email or web address] alfred Moreno ALBUMIN/GLOBULIN RATIO 1.8 1.0 - 2.5 (calc) [email or web address] alfred Moreno BILIRUBIN TOTAL 1.0 0.2 - 1.2 mg/dL [email or web address] alfred Moreno ALKALINE PHOSPHATASE 70 35 - 144 U/L [email or web address] alfred Moreno AST 19 10 - 35 U/L [email or web address] [email or web address] Moreno ALT 10 9 - 46 U/L [email or web address] alfred Moreno Comment: Test Performed at: [facility] [address] [place] [address] Carlos Donaldson Blood 2024 11:3 9 AM CDT 2024 11:42 AM CDT us Leroy Elizabeth PA-C CHEMISTRY ORDERABLES Final Result [facility] [phone] [facility] [address] [place] [address] from Last 3 Months Insurance [facility] [id number] [facility] Medicare Part B Care Teams Accordion Maker Relationship Specialty Start Date End Date Maura Monzon DO [address] [place] [address] [address] [place] [address] PCP - General Internal Medicine 04/09/19
--- OUTSIDE RECORDS SUMMARY | 2024-10-16 12:36 | XMS_ITS | Encounter Summary ---
Author Organization [facility] Address [address] [place] [address] Care Team Providers Care Board Operator Name Role Phone Maura Monzon DO Primary Care Provider Reason for Visit * Reason Comments Clinical Consult Before Scheduling Encounter Details Date Type Department Care Team (Late st Contact Info) Description 10/16/2024 Telephone [facility] Internal Medicine Medical 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 Topic: Symptomatic Care >> October 16, 2024 10:58 AM Nae Santa wrote: Has this patient seen any provider (current or former) at the requested clinic in the past? Yes, Select the appropriate age range and symptom Patient has symptoms and is seeking care. Caller Name: Kanika([facility]) Callback Number: [phone] Call Notes: diarrhea x 2 days getting [...] Description 12/15/2024 10:30 AM CDT Office Visit [facility] Internal Medicine Medical [facility] [address] [address] Leroy Elizabeth PA-C [address] [facility] [address] [place] [address] 01/01/2025 11:30 AM CDT Office Visit [facility] Pulmonology [facility] [address] [place] [address] Bennie Sullivan, [facility] [address] [place] [address] documented as of this encounter Visit Diagnoses Not on filedocumented in this encounter Additional Health Concerns Assessment Noted Time PHQ-9 Depression Total Score: 1 07/29/19 25 10:21 AM CDT documented as of this encounter Care Teams Board Operator Relationship Specialty Start Date End Date Maura Monzon DO [address] [place] [address] PCP - General Internal Medicine 04/09/19 documented as of this encounter
--- OUTSIDE RECORDS SUMMARY | 2024-10-16 12:36 | XMS_ITS | Encounter Summary ---
Author Organization [facility] Address [address] [place] [address] Care Team Providers Care Director Fraud Name Role Phone Maura Monzon DO Primary Care Provider [phone] Reason for Visit * Reason Comments Provider Call Encounter Details Date Type Department Care Team (Late st Contact Info) Description 08/28/2023 Telephone [facility] Internal Medicine Medical [facility] [address] [address] Maura Monzon DO [address] [place] [address] Provider Call Social History Tobacco [...] often do you attend chur ch or druze services? 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 Status for referral is pending. DERA @ Dr. Kenny Glez office for Mahi with information listed above. * Telephone Encounter - Mariel Gallardo - 08/29/2023 11:32 AM CDT Noted. Called and Spoke with Mahi at Dr. Glez Office in regards to message. Per Mahi, an Insurance Referral was needed for patient's Insurance due to HMO plan for Colonoscopy. Referral will be faxed to Dr. Glez Office @ [phone] * Telephone Encounter - Jovi Claire - 08/28/2023 1:31 PM CDT Copied from [facility] #[id number]. Topic: [id number] Call >> Aug 28, 2023 1:30 PM Jovi Downey wrote: Caller is requesting to speak with Clinical Care Team. Caller Name: Mahi Joseph office Callback Number: [phone] Clinician Type: Healthcare Professional Call Notes:Mahi Joseph office is calling in to see if paperwork was faxed over to [employer] Is this addressing an immediate patient care need? Yes documented in this encounter Plan of Treatment Upcoming Encounters Date Type Department Care Team (Late st Contact Info) Description 12/15/2024 10:30 AM CDT Office Visit [facility] Internal Medicine Medical [place] [address] [address] Leroy Elizabeth PA-C [address] [facility] [address] [place] [address] 01/01/2025 11:30 AM CDT Office Visit [facility] Pulmonology [address] [place] [address] Bennie Sullivan, ASP NET C DEVELOPER [address] [place] [address] documented as of this encounter Visit Diagnoses Not on filedocumented in this encounter Care Teams Director Fraud Relationship Specialty Start Date End Date Maura Monzon DO [address] [place] [address] PCP - General Internal Medicine 04/09/19 documented as of this encounter
--- OUTSIDE RECORDS SUMMARY | 2024-10-16 12:36 | XMS_ITS | Referral Summary ---
Author Organization [facility] Address [address] [place] [address] Care Team Providers Care Legislative Correspondent Name Role Phone Michael Galvan MD Unavailable Maura Monzon DO Primary Care Provider [phone] Allergies No known active allergies Medications lisinopriL (PRINIVIL,ZESTR IL) 20 mg tablet Take 1 tablet (20 mg total) by mouth daily Active lovastatin (MEVACOR) 20 mg tablet Take 1 tablet (20 mg total) by mouth nightly Active Active Problems Problem Noted Date Diagnosed Date Kidney stone 07/04/2022 Overview (07/04/2022): Added automatically from request for surgery [id number] Social History Tobacco Use Types Packs/Day Years [...] on file 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 Gender Identity Not on file Sexual Orientation [...] 104.3 kg (230 lb) 07/27/2022 1:20 PM RECLAMATION WORKER Height 182.9 cm (6') 07/27/2022 1:20 PM RECLAMATION WORKER Body Mass Index 31.19 07/27/2022 1:20 PM RECLAMATION WORKER Plan of Treatment Not on file Medical Devices Implanted Type Area Production Mechanic Device Identifier Shelf Expiration Date Model / Serial / Lot [employer] Universa 5fr 28cm Radiopaque Positioner Braid Tether Firm 2 [id number] - [id number] Implanted:Qty: 1 on 08/20/2022 by Michael Galvan MD at [facility] Left: Ureter [employer] 06/01/2025 [id number] / / [id number] [employer] Universa 5fr 28cm Radiopaque Positioner Braid Tether Firm 2 [id number] - [id number] Implanted:Qty: 1 on 08/20/2022 by Michael Galvan MD at [facility] Right: Ureter [employer] 05/28/2025 [id number] / / [id number] Insurance [facility] Address: [facility] [address] [place] [address] [employer] MEDICARE HMO Care Teams Legislative Correspondent Relationship Specialty Start Date End Date Maura Monzon DO [address] [address] [place] [address] PCP - General Internal Medicine 02/27/23 Michael Galvan MD Consulting Physician Urology 08/20/22
--- OUTSIDE RECORDS SUMMARY | 2024-10-16 12:36 | XMS_ITS | Encounter Summary ---
Author Organization [facility] Address [address] [place] [address] Care Team Providers Care Wash And Greaser Name Role Phone Maura Monzon DO Primary Care Provider [phone] Reason for Visit * Reason Comments Provider Call Encounter Details Date Type Department Care Team (Late st Contact Info) Description 10/21/2023 Telephone [facility] Internal Medicine Medical [facility] [address] [address] Maura Monzon DO [address] [facility] [address] [place] [address] Provider Call Social History Tobacco [...] often do you attend chur ch or catholic services? 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 Notified online community manager who will notify the pt once the issue is resolved. * Telephone Encounter - Melissa Qiu - 10/21/2023 1:20 PM CDT Copied from [facility] #[id number]. Topic: [id number] Call >> Oct 21, 2023 1:16 PM Melissa Downey wrote: Caller is requesting to speak with Clinical Care Team. Caller Name: KIRSTY Champagne Office Callback Number: [phone] Clinician Type: Healthcare Professional Call Notes: Calling [...] Description 12/15/2024 10:30 AM CDT Office Visit [facility] Internal Medicine Medical [place] [address] [place] [address] [address] [address] Leroy Elizabeth PA-C [address] [facility] [address] [place] [address] 01/01/2025 11:30 AM CDT Office Visit [facility] Pulmonology [address] [place] [address] Bennie Sullivan, [facility] [address] [place] [address] documented as of this encounter Visit Diagnoses Not on filedocumented in this encounter Care Teams Wash And Greaser Relationship Specialty Start Date End Date Maura Monzon DO [address] [place] [address] [address] [place] [address] PCP - General Internal Medicine 04/09/19 documented as of this encounter
[2024-10-16 12:39] LABS: Basophils Absolute Auto 0.04 K/mm3 (0.00-0.10); Basophils Percent Auto 0.2 % (0.0-1.0); Eosinophils Absolute Auto 0.15 K/mm3 (0.02-0.50); Eosinophils Percent Auto 0.8 % (1.0-6.0); Hematocrit 35.9 % (37.0-46.0); Hemoglobin 11.9 g/dL (12.4-15.3); Immature Granulocyte Absolute 0.09 K/mm3 (0.00-0.00); Immature Granulocyte Percent A 0.5 % (0.0-0.0); Lymphocytes Absolute Auto 2.34 K/mm3 (1.10-4.50); Lymphocytes Percent Auto 12.8 % (18.0-42.0); Mean Corpuscular HGB Conc 33.1 g/dL (32-36); Mean Corpuscular Hemoglobin 30.4 pg (27.0-31.0); Mean Corpuscular Volume 91.8 fL (78.0-102.0); Mean Platelet Volume 9.1 fl (8.7-11.0); Monocytes Absolute Auto 1.14 K/mm3 (0.10-0.90); Monocytes Percent Auto 6.3 % (2.0-11.0); Neutrophils Absolute Auto 14.48 K/mm3 (1.70-7.20); Neutrophils Percent Auto 79.4 % (50.0-70.0); Platelet Count Result 209 K/mm3 (150-420); Red Blood Count 3.91 M/mm3 (4.70-6.10); Red Cell Distribution Width 12.1 % (11.6-14.4); White Blood Count 18.2 K/mm3 (4.8-10.8)
[2024-10-16 12:50] LABS: Alanine Aminotransferase 16 U/L (6-50); Albumin Level 3.6 g/dL (3.5-5.1); Alkaline Phosphatase 83 U/L (38-126); Anion Gap 4 mmol/L (4-12); Aspartate Amino Transferase 31 U/L (17-59); Bilirubin,Total 1.2 mg/dL (0.2-1.3); Blood Urea Nitrogen 17 mg/dL (9-20); Calcium 8.5 mg/dL (8.4-10.2); Carbon Dioxide 26 mmol/L (22-30); Chloride 106 mmol/L (98-107); Estimated CRCL calculation 50 ml/min; Estimated Glomerular Filt Rate 50; Glucose 109 mg/dL (65-110); Osmolality Calculated 284 mOsm/kg (285-295); Potassium 3.7 mmol/L (3.4-5.0); Sodium 136 mmol/L (137-145); Total Protein 6.5 g/dL (6.3-8.2)
[2024-10-16 12:51] LABS: Lactic Acid Reflex 0.9 mmol/L (0.4-2.0)
[2024-10-16 13:00] LABS: Lipase 77 U/L (23-300)
--- NOTE | 2024-10-16 13:16 | PC.NURSE ---
Patient ambulatory to and from bathroom for stool sample. patient reports weakness has improved, Blood pressure is now 110/60.
[2024-10-16 14:27] LABS: Toxigenic C. Diff POSITIVE (NEGATIVE)
== END 2024-10-16 15:17 | disposition home or self-care (01) ==
PROVIDERS: Emergency Provider Emergency Medicine
DX: A04.72 Enterocolitis due to Clostridium difficile, not specified as recurrent (principal); N17.9 Acute kidney failure, unspecified; E86.0 Dehydration; I25.10 Atherosclerotic heart disease of native coronary artery without angina pectoris; I10 Essential (primary) hypertension
CPT/HCPCS: 36415; 80053; 83605; 83690; 83735; 85025; 87493; 96360; 96361; 99284; J7030

== ENCOUNTER 2024-11-02 14:51 | Outpatient (CLI) | payer MEDICARE, SELFPAY ==
--- OUTSIDE RECORDS SUMMARY | 2024-11-02 16:27 | XMS_ITS | Clinical Summary ---
Author Organization [facility] Address [address] [place] [address] Phone Care Team Providers Care Windows System Admin Name Role Phone Maura Monzon Primary Care Provider [phone] Allergies Active Allergy Reactions Criticality Noted Date Comments Sulfa (Sulfonamide Antibiotics) Unknown 03/21 Medications aspirin (ECOTRIN EC) 81 mg Tablet, Delayed Release (E.C.)Indications:Aorti c atherosclerosis,Atheros clerosis of [place] coronary artery of [place] heart without angina pectoris Take 1 Tablet (81 mg) by mouth daily. 024 Active multivitamin with usbmexrf-wdghuwwd-pjxpg n (Centrum Silver) 0.4 mg-300 mcg- 250 mcg Tablet per tablet 1 tablet(s), Oral, daily, 30 tablet(s), Tablet(s), 0 024 Active lutein 20 mg Tablet 20 mg. 024 Active lisinopriL (PRINIVIL) 10 mg tabletIndications:Benig n hypertension Take 1 Tablet (10 mg) by mouth daily. 100 Tablet 3 024 Active lovastatin (MEVACOR) 20 mg tabletIndications:Pure hypercholesterolemia Take 1 Tablet (20 mg) by mouth daily. 100 Tablet 3 025 Active carvediloL (COREG) 6.25 mg tablet 6.25 mg. 025 Active benzonatate (TESSALON) 200 mg capsule Take 1 Capsule (200 mg) by mouth 3 times daily as needed for Cough. 90 Capsule 025 Active donepeziL (ARICEPT) 10 mg tablet Take 1 Tablet (10 mg) by mouth daily at bedtime. 100 Tablet 1 Active fluticasone propionate (FLONASE) 50 mcg/spray [place], Suspension nasal inhaler Administer 2 Sprays in each nostril daily. 48 Gram 3 Active lactobacillus rhamnosus, GG, (CULTURELLE) 10 billion cell Capsule Take 1 Capsule by mouth daily. 100 Capsule 3 Active donepeziL (ARICEPT) 5 mg tablet Take 1 Tablet (5 mg) by mouth daily at bedtime. 30 Tablet 025 2024 Discontin ued(Reord er) amoxicillin-clavulanate (AUGMENTIN) 875-125 mg tablet Take 1 Tablet by mouth every 12 hours for 7 days. 14 Tablet 025 2024 Active Problems Problem Noted Date Diagnosed Date C. difficile diarrhea 10/27/2024 Moderate dementia without be havioral disturbance, psychotic disturbance, mood disturbance, or anxiety 09/16/2024 Urolithiasis 09/15/2024 Syncope and collapse 09/15/2024 Transient ischemic attack 09/15/2024 Atherosclerosis of [place] co ronary artery of [place] heart without angina pectoris 06/19/2022 Aortic atherosclerosis 06/19/2022 ULYSSES on CPAP 11/14/2021 Benign hypertension 11/14/2021 Prediabetes 09/30/2020 Hyperlipidemia 04/09/2019 Encounters Date Type Department Care Team Description 11/02/2024 Telephone [facility] ([facility]3] Internal Medicine [facility] [address] [facility] [place] [address] Maura Monzon, Needs Orders Written; Needs Orders Written 10/27/2024 11:30 AM CDT Office Visit [facility] ([facility]3] Internal Medicine [facility] [place] [address] [facility] [place] [address] Leroy Elizabeth PA-C C. difficile diarrhea (Primary Dx) 10/21/2024 Telephone [facility]3] Internal Medicine [facility] [place] [address] [place] [address] Maura Monzon, Appointment Verification 10/16/2024 Telephone [facility] [place] [address] [address] Maura Monzon, DO Clinical Consult Before Scheduling 10/08/2024 Telephone [facility] [place] [address] [address] Maura Monzon, DO Clinical Consult Before Scheduling 10/08/2024 External Device Data STL ABSTRACTION Provider, Abstract 10/07/2024 External Device Data [place]STRA[place] Provider, Abstract 10/07/2024 External Device Data [place]STRA[place] Provider, Abstract 10/06/2024 External Device Data [place]STRA[place] Provider, Abstract 09/22/2024 External Device Data [place]STRACTION Provider, Abstract 09/22/2024 External Device Data [place]STRACTION Provider, Abstract 09/15/2024 10:00 AM CDT Office Visit [facility] [place] [address] [address] Leroy Elizabeth PA-C Moderate dementia without behavioral disturbance, psychotic disturbance, mood disturbance, or anxiety, unspecified dementia type (CMS/HCC) (Primary Dx); Memory loss 09/04/2024 Telephone [facility] [place] [address] [address] Maura Monzon, Erroneous encounter-disregard 09/01/2024 [facility] [place] [address] [address] Maura Monzon, 08/17/2024 Telephone [facility] [place] [address] [address] Maura Monzon, Needs Orders Written 08/13/2024 Refill [facility] [place] [address] [address] Maura Monzon DO 08/10/2024 Orders Only [facility]3] Internal Medicine [facility] [place] [facility] [place] [address] [address] Suraj Valdez MD 08/05/2024 External Device Data STL ABSTRACTION Provider, Abstract from Last 3 Months Immunizations Immunization Administration Dates Next Due (COMIRNATY)(12 YR UP) COVID- 19 VACCINE, MRNA, SPIKE PROTEIN, LNP, ALMAS(PF) 30 MCG/0.3 ML IM SUSP 02/28/2024 (PREVNAR 13)(6 WKS UP) PNEUM OCOCCAL CONJUGATE (PCV13) 0.5 ML, IM 06/19/2021 (PREVNAR 20)(6 WKS UP) PNEUM OCOCCAL CONJUGATE VACCINE 20-VALENT (PCV20), POLYSACCHARIDE [id number] CONJUGATE, ADJUVANT 0.5 ML (PF) IM 06/19/2022 [...] often do you attend chur ch or yarsani services? 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 Not on file Not on file Not on file Last Filed Vital Signs Vital Sign Reading Time Taken Comments Blood Pressure 134/68 10/27/2024 11:09 AM CDT Pulse 66 10/27/2024 11:09 AM CDT Temperature 36.2 C (97.1 F) 10/27/2024 11:09 AM CDT Respiratory Rate 16 10/27/2024 11:0 9 AM CDT Oxygen Saturation 96% 10/27/2024 11: 09 AM CDT Inhaled Oxygen Concentration - - Weight 101.5 kg (223 lb 12.8 oz) 2024 11:09 AM CDT Height 180.3 cm (5' 11) 10/27/2024 11: 09 AM CDT Body Mass Index 31.21 10/27/2024 11:09 AM CDT Plan of Treatment Upcoming Encounters Date Type Department Care Team (Late st Contact Info) Description 12/15/2024 10:30 AM CDT Office Visit [facility]3] Internal Medicine Medical [place] A [address] [address] Leroy Elizabeth PA-C [address] [place] [address] 01/01/2025 11:30 AM CDT Office Visit [facility]3] Pulmonology [address] [place] [address] Bennie Sullivan, LINE SUPERVISOR [address] [place] [address] [place] [address] Health Maintenance Due Date Last Done Comments [...] - 1-dose 75+ series) 2024 COVID-19 Vaccine ( season) 2024 02/28/2024, 08/14/2020, 07/17/2020 COLORECTAL SCREENING 05/20/2025 05/20/2015 (Previously completed) Colorectal Cancer Screening 05/20/2025 Medicare Advantage (DC) Preventative Visit/Annual Wellness Visit 2025 06/20/2023, 06/19/2022, 06/19/2022, Additional history exists Postponed from 05/20/2024 (Therapeutic Plan Prohibits) PNEUMOCOCCAL VACCINE 50+ YEARS Completed 06/19/2022, 06/19/2021 INFLUENZA VACCINE Completed 02/28/2024, , 02/17/2021, Additional history exists Insurance [facility] [id number] RX [facility] DATA Medicare Part B Care Teams Windows System Admin Relationship Specialty Start Date End Date Maura Monzon DO [address] [place] [address] PCP - General Internal Medicine 04/09/19
--- OUTSIDE RECORDS SUMMARY | 2024-11-02 16:27 | XMS_ITS | Clinical Summary ---
Author Organization [facility] Address [address] [place] [address] Care Team Providers Care Test Engineering Manager Name Role Phone Michael Galvan MD Unavailable Maura Monzon DO Primary Care Provider [phone] Allergies No known active allergies Medications lisinopriL (PRINIVIL,ZESTR IL) 20 mg tablet Take 1 tablet (20 mg total) by mouth daily Active lovastatin (MEVACOR) 20 mg tablet Take 1 tablet (20 mg total) by mouth nightly Active Active Problems Problem Noted Date Diagnosed Date Kidney stone 07/04/2022 Overview (07/04/2022): Added automatically from request for surgery [id number] Surgical History Surgery Date Site/Laterality Comments TONSILLECTOMY/ADENOIDECTOMY [...] on file 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 Gender Identity Not on file Sexual Orientation [...] 104.3 kg (230 lb) 07/27/2022 1:20 PM BOX BLANK MACHINE FEEDER Height 182.9 cm (6') 07/27/2022 1:20 PM BOX BLANK MACHINE FEEDER Body Mass Index 31.19 07/27/2022 1:20 PM BOX BLANK MACHINE FEEDER Plan of Treatment Health Maintenance Due Date [...] history exists Medical Devices Implanted Type Area Manager Environmental Device Identifier Shelf Expiration Date Model / Serial / Lot [employer] Universa 5fr 28cm Radiopaque Positioner Braid Tether Firm 2 [id number] - [id number] Implanted:Qty: 1 on 08/20/2022 by Michael Galvan MD at [facility] Left: Ureter [employer] 06/01/2025 [id number] / / [id number] [employer] Universa 5fr 28cm Radiopaque Positioner Braid Tether Firm 2 [id number] - [id number] Implanted:Qty: 1 on 08/20/2022 by Michael Galvan MD at [facility] Right: Ureter [employer] 05/28/2025 [id number] / / [id number] Insurance [facility] MEDICARE ADVANTAGE [facility] MEDICARE HMO Care Teams Test Engineering Manager Relationship Specialty Start Date End Date Maura Monzon DO [address] [place] [address] [place] [address] PCP - General Internal Medicine 02/27/23 Michael Galvan MD Consulting Physician Urology 08/20/22
--- OUTSIDE RECORDS SUMMARY | 2024-11-02 16:27 | XMS_ITS | Referral Summary ---
Author Organization [facility] Address [address] [place] [address] Care Team Providers Care Medicaid Billing Specialist Name Role Phone Michael Galvan MD Unavailable Maura Monzon DO Primary Care Provider [phone] Allergies No known active allergies Medications lisinopriL (PRINIVIL,ZESTR [place]) 20 mg tablet Take 1 tablet (20 mg total) by mouth daily Active lovastatin (MEVACOR) 20 mg tablet Take 1 tablet (20 mg total) by mouth nightly Active Active Problems Problem Noted Date Diagnosed Date Kidney stone 07/04/2022 Overview (07/04/2022): Added automatically from request for surgery [id number] Social History Tobacco Use Types Packs/Day Years [...] on file 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 LOCATOR 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 Gender Identity Not on file Sexual [...] 104.3 kg (230 lb) 07/27/2022 1:20 PM LOCATOR SPECIALIST Height 182.9 cm (6') 07/27/2022 1:20 PM LOCATOR SPECIALIST Body Mass Index 31.19 07/27/2022 1:20 PM LOCATOR SPECIALIST Plan of Treatment Not on file Medical Devices Implanted Type Area Inspector Elevators Device Identifier Shelf Expiration Date Model / Serial / Lot [employer] Universa 5fr 28cm Radiopaque Positioner Braid Tether Firm 2 [id number] - [id number] Implanted:Qty: 1 on 08/20/2022 by Michael Galvan MD at [facility] Left: Ureter [employer] 06/01/2025 [id number] / / [id number] [employer] Universa 5fr 28cm Radiopaque Positioner Braid Tether Firm 2 [id number] - [id number] Implanted:Qty: 1 on 08/20/2022 by Michael Galvan MD at [facility] Right: Ureter [employer] 05/28/2025 [id number] / / [id number] Insurance [facility] MEDICARE ADVANTAGE [facility] MEDICARE Address: [facility] [address] [place] [address] [employer] MEDICARE HMO Care Teams Medicaid Billing Specialist Relationship Specialty Start Date End Date Maura Monzon DO [address] [facility] [facility] [address] [place] [address] PCP - General Internal Medicine 02/27/23 Michael Galvan MD Consulting Physician Urology 08/20/22
--- OUTSIDE RECORDS SUMMARY | 2024-11-02 16:27 | XMS_ITS | Encounter Summary ---
Author Organization [facility] Address [address] [place] [address] Care Team Providers Care Blood Tester Fowl Name Role Phone Maura Monzon DO Primary Care Provider [phone] Reason for Visit * Reason Comments Provider Call Encounter Details Date Type Department Care Team (Late st Contact Info) Description 08/28/2023 Telephone [facility] Internal Medicine Medical [facility] [address] [address] Maura Monzon, [address] [place] [address] Provider Call Social History Tobacco [...] often do you attend chur ch or zoroastrian services? 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 Glez Office @ [phone] * Telephone Encounter - Jovi Claire - 08/28/2023 1:31 PM CDT Copied from [facility] #[id number]. Topic: [id number] Call >> Aug 28, 2023 1:30 PM Jovi Downey wrote: Caller is requesting to speak with Clinical Care Team. Caller Name: Mahi Joseph office Callback Number: [phone] Clinician Type: Healthcare Professional Call Notes:Mahi Joseph office is calling in to see if paperwork was faxed over to [employer] Is this addressing an immediate patient care need? Yes documented in this encounter Plan of Treatment Upcoming Encounters Date Type Department Care Team (Late st Contact Info) Description 12/15/2024 10:30 AM CDT Office Visit [facility] Internal Medicine Medical [place] [address] [address] [address] Leroy Elizabeth PA-C [address] [place] [address] 01/01/2025 11:30 AM CDT Office Visit [facility] Pulmonology [facility] [address] [place] [address] Bennie Sullivan, BATOOL [address] [place] [address] documented as of this encounter Visit Diagnoses Not on filedocumented in this encounter Care Teams Blood Tester Fowl Relationship Specialty Start Date End Date Maura Monzon DO [address] [facility] [facility] [address] [place] [address] PCP - General Internal Medicine 04/09/19 documented as of this encounter
--- OUTSIDE RECORDS SUMMARY | 2024-11-02 16:27 | XMS_ITS | Encounter Summary ---
Author Organization [facility] Address [address] [place] [address] Care Team Providers Care Citrix Engineer Name Role Phone Maura Monzon DO Primary Care Provider Reason for Visit * Reason Comments Needs Orders Written Needs Orders Written Encounter Details Date Type Department Care Team (Late st Contact Info) Description 11/02/2024 Telephone [facility] Internal Medicine Medical [place] A [facility] [address] [place] [address] Maura Monzon, [address] [place] [address] Needs Orders Written; Needs Orders Written Social History Tobacco Use Types Packs/Day Years [...] often do you attend chur ch or zoroastrianism services? 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 Lab order faxed to [phone] and [phone] * Telephone Encounter - Clair Ball 11/02/2024 3:09 PM CDT Copied from [facility] #[id number]. Topic: Patient or Caregiver Communication Request >> Nov 02, 2024 3:06 PM Clair Reno wrote: Patient or Caregiver requesting that a message be sent to Care Team Caller: Ariana([facility]) Patient/Caregiver Callback Number: [phone] Call Notes: Ariana stated that patient Chapincito Howard is at front desk coordinator of the hospital they still haven't received the order she wants to make sure the office has the correct fax [phone]. Ariana would like to have a call back when the order is faxed * Telephone Encounter - Debbie Kelly RN - 11/02/2024 1:45 PM CDT 11/02/2024 1:45 PM Returned call and spoke with patient to provide notification that order for stool testing has been placed. Voiced understanding. Debbie CHANG * Telephone Encounter - Leroy Elizabeth PA-C - 11/02/2024 1:19 PM CDT Order signed. Can go to [facility] * Telephone Encounter - Debbie Kelly RN - 11/02/2024 9:45 AM CDT 11/02/2024 9:45 AM Returned call and spoke with patient. Discussed patient symptoms. Adult patient calling with GI symptoms: Onset of new/worsening symptom(s)? Saturday The patient has the following symptoms or concerns: [] Temp >100.4 in last 48 hours [] Abdominal pain Severity: [] Mild [] Moderate [] Severe Location: [] RUQ [] RLQ [] LUQ [] LLQ [] Midepigastric [] Periumbilical Frequency: [] Constant [] Intermittent Quality: [] Sharp [] Aching [] Burning [] Dull [] Cramping Pattern: [] Constant [] Intermittent Radiates to: [] Nausea [] Vomiting Frequency: [] 1-3 times in last 24 hours [] >3 times in last 24 hours [] >6 times in last 24 hours [] Intermittent [] Bright red blood [] Coffee ground emesis [x] Diarrhea Description: [x] Watery [x] Loose [] Bloody [] Mucous Frequency: [] 1-3 times in last 4 hours [] >4 times in last 4 hours [] Blood in stool Color: [] Bright red [] Black, tarry Severity: [] Drops, spots, streaks on toilet paper [] Mild (more than just a few drops or streaks) [] Moderate (small clots, passing blood without stool, or toilet water turns red) [] Severe (large clots) [] Heartburn [] Constipation [] Dizziness or weakness [] Chest discomfort []Pain []Pressure [] Recent antibiotics [] Recent exposure to G/I illness [] Recent travel [x] Has tried medication or treatment at home Medications/Treatments tried: 10 days of Vancomycin for c.diff. Other pertinent information: Patient states that diarrhea started again Saturday. Patient reports bms >10 times in a 24 hour period. Denies abdominal pain. Denies blood in stool. Patient requesting order for lab to confirm c.diff. Patient states that he has a prescription for Vancomycin left over from the hospital. Lab pended for provider approval. / Status: Patient likely cannot become . [] If , any vaginal bleeding? [] no [] Yes PROVIDER DIRECTION NEEDED: Not able to schedule appointment within the recommended timeframe. Patient informed of additional [facility]: not applicable but declines. Phone Management by Nurse: nausea/vomiting No eating or drinking for 1 hour after last vomiting, then begin sipping clear liquids for 12 hours(gelatin, water, sports drinks, flat soda, clear broth, or apple juice). Avoid citrus juices After 12 hours begin bland foods (rice, soda crackers, dry toast, applesauce, mashed potatoes, pretzels, bananas) After 12 hours try regular diet as tolerated OTC Antacid, Pepto-Bismol (stools will turn black with use) or Emetrol per package directions Retake oral emesis meds if vomiting within 30 minutes of taking if persistent vomiting for >24 hours despite use of OTC antiemetics, route to provider. Phone Management by Nurse: diarrhea Pepto-Bismol per package directions, particularly if also vomiting (stools will turn black with use) Imodium per package directions for diarrhea alone. Acetaminophen or Ibuprofen for fever - see appendix for contraindications and precautions Avoid spread--wash hands, do not share cups, clean restroom after use etc. When and Why to Call Us Back If not better in 24-48 hours or warning sign/symptoms develop Debbie RN * Telephone Encounter - Jessica Olivares - 11/02/2024 9:11 AM CDT Copied from [facility] #[id number]. Topic: CPA Information Request - Order or Referral Request >> Nov 02, 2024 9:09 AM Jessica Walton wrote: Caller Name: Chapincito Howard Patient/Caregiver Callback Number: [phone] Call Notes: [phone] stnaton ill need a order to do a stool specimen Caller is requesting: New Lab Order Order: requesting a order be put in for a stool specimen Reason for Request: refused appt has been having diarrhea since Saturday and he has c diff documented in this encounter Plan of Treatment Upcoming Encounters Date Type Department Care Team (Late st Contact Info) Description 12/15/2024 10:30 AM CDT Office Visit [facility] Internal Medicine Medical [facility] [address] [address] Leroy Elizabeth PA-C [address] [facility] [place] [address] [place] [address] 01/01/2025 11:30 AM CDT Office Visit [facility] Pulmonology [facility] [address] [place] [address] Bennie Sullivan, [facility] [address] [place] [address] Scheduled Orders Name Type Priority Associated Diagnoses Orde r Schedule C. DIFFICILE DETECTION Microbiology Routine C. difficile diarrhea Expected: 11/02/2024, Expires: 11/02/2025 documented as of this encounter Visit Diagnoses Diagnosis C. difficile diarrhea- Primary Intestinal infection due to clostridium difficile documented in this encounter Additional Health Concerns Assessment Noted Time PHQ-9 Depression Total Score: 1 07/29/19 25 10:21 AM CDT documented as of this encounter Care Teams Citrix Engineer Relationship Specialty Start Date End Date Maura Monzon DO [address] [facility] [address] [place] [address] PCP - General Internal Medicine 04/09/19 documented as of this encounter
--- OUTSIDE RECORDS SUMMARY | 2024-11-02 16:27 | XMS_ITS | Encounter Summary ---
Author Organization [facility] Address [address] [place] [address] Care Team Providers Care Tricot Knitting Machine Operator Name Role Phone Maura Monzon DO Primary Care Provider [phone] Reason for Visit * Reason Comments Clinical Consult Before Scheduling Encounter Details Date Type Department Care Team (Late st Contact Info) Description 10/16/2024 Telephone [facility] Internal Medicine Medical [facility] [address] [place] [address] Maura Monzon, [address] [place] [address] Clinical Consult Before Scheduling Social [...] often do you attend chur ch or roman catholic services? 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 She states that they are at the emergency room right now. Patient had a blood pressure of 65/40 upon arrival to ED and is receiving fluids now. Additionally, they are testing patient for c.diff. Routed to providers as FYI. Debbie CHANG * Telephone Encounter - Nae Murcia - 10/16/2024 11:00 AM CDT Copied from [facility] #[id number]. Topic: Symptomatic Care >> October 16, 2024 10:58 AM Nae Santa wrote: Has this patient seen any provider (current or former) at the requested clinic in the past? Yes, Select the appropriate age range and symptom Patient has symptoms and is seeking care. Caller Name: Kanika([facility]) Callback Number: [phone] Call Notes: diarrhea x 2 days getting [...] [facility] Internal Medicine Medical [place] [address] [address] Leroy Elizabeth PA-C [address] [address] [place] [address] 01/01/2025 11:30 AM CDT Office Visit [facility] Pulmonology [address] [place] [address] Bennie Sullivan, BATOOL [address] [place] [address] documented as of this encounter Visit Diagnoses Not on filedocumented in this encounter Additional Health Concerns Assessment Noted Time PHQ-9 Depression Total Score: 1 07/29/19 25 10:21 AM CDT documented as of this encounter Care Teams Tricot Knitting Machine Operator Relationship Specialty Start Date End Date Maura Monzon DO [address] [place] [address] PCP - General Internal Medicine 04/09/19 documented as of this encounter
--- OUTSIDE RECORDS SUMMARY | 2024-11-02 16:27 | XMS_ITS | Encounter Summary ---
Author Organization [facility] Address [address] [place] [address] Care Team Providers Care Real Estate Office Manager Name Role Phone Maura Monzon DO Primary Care Provider [phone] Reason for Visit * Reason Comments Provider Call Encounter Details Date Type Department Care Team (Late st Contact Info) Description 10/21/2023 Telephone [facility] Internal Medicine Medical [facility] [address] [address] Maura Monzon, [address] [place] [address] Provider Call Social History Tobacco [...] often do you attend chur ch or alevism services? 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 Notified manager regional who will notify the pt once the issue is resolved. * Telephone Encounter - Melissa Qiu - 10/21/2023 1:20 PM CDT Copied from [facility] #[id number]. Topic: [facility]-[employer]-Gege[facility] Call >> Oct 21, 2023 1:16 PM Melissa Downey wrote: Caller is requesting to speak with Clinical Care Team. Caller Name: KIRSTY Champagne Office Callback Number: [phone] Clinician Type: Healthcare Professional Call Notes: Calling [...] 12/15/2024 10:30 AM CDT Office Visit [facility] Internal Medicine Medical [place] [address] [address] [address] Leroy Elizabeth, ESPERANZA [address] [facility] [address] [place] [address] 01/01/2025 11:30 AM CDT Office Visit [facility] Pulmonology [facility] [address] [place] [address] Bennie Sullivan, [facility] [address] [place] [address] documented as of this encounter Visit Diagnoses Not on filedocumented in this encounter Care Teams Real Estate Office Manager Relationship Specialty Start Date End Date Maura Monzon DO [address] [place] [address] PCP - General Internal Medicine 04/09/19 documented as of this encounter
--- OUTSIDE RECORDS SUMMARY | 2024-11-02 16:27 | XMS_ITS | Encounter Summary ---
Author Organization [facility] Address [address] [place] [address] Care Team Providers Care Label Drier Name Role Phone Maura Monzon DO Primary Care Provider [phone] Reason for Visit * Reason Comments Insurance Issues Encounter Details Date Type Department Care Team (Late st Contact Info) Description 03/03/2024 Telephone [facility] Internal Medicine Medical [facility] [address] [address] Maura Monzon, [address] [facility] [address] [place] [address] Insurance Issues Social History Tobacco [...] often do you attend chur ch or hinduism services? 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 Monzon and performed on 06/22/23: Lipid panel, HgbA1c, CMP, CBC with diff, PSA, and TSH. Additionally they requested the NPI for [facility]. * Telephone Encounter - Mariah Shea - 03/03/2024 12:51 PM CDT Copied from [facility] #[id number]. Topic: Patient or Caregiver Communication Request >> Mar 03, 2024 12:48 PM Mariah Funk wrote: Patient or Caregiver requesting that a message be sent to Care Team Caller: Kanika on [facility] Patient/Caregiver Callback Number: [phone] (home) Call Notes: Kanika on phi Insurance needs PCP to contact [employer] to let them know PCP is the one who prescribed labs. Number # [phone] Monzon's is the one that ordered the labs from 06/22/2023. Per insurance. documented in this encounter Plan of Treatment Upcoming Encounters Date Type Department Care Team (Late st Contact Info) Description 12/15/2024 10:30 AM CDT Office Visit [facility] Internal Medicine Medical [place] [address] [place] [address] [address] [address] Leroy Elizabeth PA-C [address] [facility] [address] [place] [address] 01/01/2025 11:30 AM CDT Office Visit [facility] Pulmonology [facility] [address] [place] [address] Bennie Sullivan, TUNNEL HEADING INSPECTOR [address] [place] [address] documented as of this encounter Visit Diagnoses Not on filedocumented in this encounter Care Teams Label Drier Relationship Specialty Start Date End Date Maura Monzon DO [address] [facility] [address] [place] [address] PCP - General Internal Medicine 04/09/19 documented as of this encounter
--- OUTSIDE RECORDS SUMMARY | 2024-11-02 16:27 | XMS_ITS | Clinical Summary ---
Author Organization [facility] Address [address] [place] [address] Phone Care Team Providers Care Supervisor Sewer Maintenance Name Role Phone Maura Monzon Primary Care Provider [phone] Allergies No known active allergies Medications lisinopril [...] on file Medical Devices Implanted Type Area Barrel Endshake Adjuster Device Identifier Shelf Expiration Date Model / Serial / Lot Technis 1-Piece Iol With Simplicity Delivery System Implanted:Qty: 1 on 08/13/2022 by Antelmo Barry MD at [facility] Right: Eye 03/31/2025 [id number] / [id number] / [id number] Technis 1-Piece Iol With Simplicity Delivery System Implanted:Qty: 1 on 09/10/2022 by Antelmo Barry MD at [facility] Left: Eye [employer] 06/17/2024 [id number] / [id number] / [id number] Insurance on file Care Teams Supervisor Sewer Maintenance Relationship Specialty Start Date End Date aMura Monzon DO [address] [facility] [address] [place] [address] PCP - General Internal Medicine 08/03/22
--- OUTSIDE RECORDS SUMMARY | 2024-11-02 16:27 | XMS_ITS | Clinical Summary ---
Author Organization [facility] Address [address] [place] [address] Care Team Providers Care Senior Electronics Design Engineer Name Role Phone Unavailable Primary Care Provider Unavailabl e Source Comments [facility],non-owned Affiliates and Associated Physician Practices is amultiple site organization consisting of ambulatory clinics and hospital sitesin [place], [place], [place] and [place]. This disclosure is being madepursuant to the Care Everywhere program and may not contain all information available regarding this patient. 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
--- OUTSIDE RECORDS SUMMARY | 2024-11-02 16:27 | XMS_ITS | Encounter Summary ---
Author Organization [facility] Address [address] [place] [address] Care Team Providers Care Supervisor Instant Potato Processing Name Role Phone Maura Monzon DO Primary Care Provider [phone] Reason for Visit * Reason Comments Question Encounter Details Date Type Department Care Team ([facility] st Contact Info) Description 10/29/2023 Telephone [facility] Internal Medicine Medical [facility] [address] [address] Maura Monzon, [address] [facility] [address] [place] [address] Question Social History Tobacco Use [...] any clubs o r organizations such as pentecostalism groups, unions, fraternal or athletic groups, or [...] on file Legal Sex Male 4:40 AM CHIEF OF HOSPITAL MEDICINE Gender Identity Not on file Sexual Orientation Not on file 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 However after patient had labs done ordered 06/20/[address] Monzon they were billed for labs as out of network, informing him [facility] is fact out of network with his [employer] insurance. Spouse is asking for letter to be faxed to [facility] that oupatient labs ordered 06/20/[address] Monzon. Fax letter to [phone] with retroactive claim number [id number] on letter. Letter written. In Dr. Monzon to be signed basket. Please route back to me when signed, and I will fax. Also advised Ariana we did not receive results from 06/20/23 labs that were completed. Ariana will contact lab and ask them to send results to us. * Telephone Encounter - Kim Rankin PCT - 10/29/2023 1:23 PM CDT Copied from [facility] #[id number]. Topic: Patient or Caregiver Communication Request >> Oct 29, 2023 1:20 PM Kim Thomas wrote: Patient or Caregiver requesting advice Caller: on [facility] Patient/Caregiver Callback Number: [phone] (home) Call Notes: states that they need a referral to their insurance for lab. Stating that the dr ordered the lab work in June. Please fax to [phone]. Please advise. This is all the details that she gave me. Please advise. Here is the retro claim # [id number] documented in this encounter Plan of Treatment Upcoming Encounters Date Type Department Care Team (Late st Contact Info) Description 12/15/2024 10:30 AM CDT Office Visit [facility] Internal Medicine Medical [address] [place] [address] Leroy Elizabeth PA-C [address] [place] [address] [place] [address] 01/01/2025 11:30 AM CDT Office Visit [facility] Pulmonology [address] [place] [address] Bennie Sullivan, REFRIGERATION REPAIR SUPERVISOR [address] [place] [address] [address], [place] [address] documented as of this encounter Visit Diagnoses Not on filedocumented in this encounter Care Teams Supervisor Instant Potato Processing Relationship Specialty Start Date End Date Maura Monzon DO [address] [place] [address] PCP - General Internal Medicine 04/09/19 documented as of this encounter
--- OUTSIDE RECORDS SUMMARY | 2024-11-02 16:27 | XMS_ITS | Encounter Summary ---
Author Organization [facility] Address [address] [place] [address] Care Team Providers Care Machine Cleaner Name Role Phone Unavailable Primary Care Provider Unavailabl e Encounter Details Date Type Department Care Team (Late st Contact Info) Description 10/30/2023 Lab Requisition [facility] - DermPath Lab [address] [place] [address] Shawn Adkins MD [facility] DERMATOLOGY [address] [place] [phone] Neoplasm of uncertain behavior of skin Social History Tobacco Use Types Packs/Day Years Used Date Smoking Tobacco: Never Assessed Sex and Gender Information Value Date Recorded Sex Assigned at Not on file 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 The specimen consists of a shave biopsy measuring 7x6x1 mm. Jar 0. 4 4:31 PM CDT DERMATOPATHOLOGY LABORATORY Microscopic Description Specimen A. SKIN, right episcopal: The epidermis shows parakeratosis, full thickness disorderly [...] determined by the Dermatopathology Laboratory at [facility], directed by Dr. Justin Kiran. These tests need not be, and therefore are not, approved by the [place] Food and Drug Administration. The tests are used for clinical purposes. Billing Codes Specimen Charges Stain Charges 46582 1 4 4:31 PM CDT DERMATOPATHOLOGY LABORATORY Embedded Images 4 4:31 PM CDT DERMATOPATHOLOGY LABORATORY Pathology/Cytolog y TISSUE SPECIMEN FROM SKIN / Unknown 10/30/2023 10/31/2023 4:29 PM CDT us Shawn Adkins MD LAB - PATHOLOGY/CYTOLOGY JAMIL BILLS Final Result DERMATOPATHOLOGY LABORATORY [facility] - Department of Dermatology [address] [phone] documented in this encounter Visit Diagnoses Diagnosis Neoplasm of uncertain behavior of skin documented in this encounter
[2024-11-02 16:30] LABS: Toxigenic C. Diff POSITIVE (NEGATIVE)
== END 2024-11-02 14:52 | disposition home or self-care (01) ==
LOC: CHSLAB 15:17
PROVIDERS: PCP Nurse Practitioner Family
DX: A04.72 Enterocolitis due to Clostridium difficile, not specified as recurrent (principal)
CPT/HCPCS: 87493

== ENCOUNTER 2024-11-03 09:33 | Observation (INO) | payer MEDICARE, SELFPAY ==
[2024-11-03] VITALS (12 sets, daily range): BP systolic 73–123; BP diastolic 47–74; PULSE 60–83; RESP 16–20; TEMP 35.8–36.9; O2SAT 93–96; BMI 31.0
--- NOTE | 2024-11-03 09:51 | ED_ITS ---
HPI - General Adult General Chief complaint: Nausea/Vomiting/Diarrhea Stated complaint: low bp at home Time Seen by Provider: 11/03/24 09:50 History of Present Illness HPI narrative: 74-year-old white male had history of C diff and treated with vancomycin 250 for 10 days diarrhea went away and then it came back 3 days ago he has had decreased p.o. intake he has felt dizzy when he stands up. He had about 10 nonbloody loose stools in the last 24 hours. He was seen in the beginning of his illness about 3 weeks ago and given 2 L of fluid and sent home on vancomycin. Had a stool check yesterday it was reported him to be positive for C diff. denies any chest pain or any pain elsewhere or shortness of breath cough problems voiding. He has some rectal discomfort and everyone thought has a little bit of bright red blood on the toilet paper when he wipes. Denies any abdominal pain or nausea. Denies any rash or itching. If he walks a lot over the last week or so he has felt a little bit tired. Denies any other complaints. Has a history of hypertension took his lisinopril this morning. Related Data Home Medications ?Medication ?Instructions ?Recorded ?Confirmed ?Last Taken ?Type lisinopril 10 mg tablet 10 mg PO DAILY 06/20/23 11/03/24 Unknown History aspirin 81 mg tablet,delayed 81 mg PO BID 08/02/23 11/03/24 Unknown History release carvedilol 6.25 mg tablet 6.25 mg PO Q12H 08/02/23 11/03/24 Unknown History donepezil 5 mg tablet (Aricept) 5 mg PO HS 11/03/24 11/03/24 Unknown History lovastatin 20 mg tablet,extended 20 mg PO HS 11/03/24 11/03/24 Unknown History release 24 hr (Altoprev) lutein 20 mg capsule 20 mg PO DAILY 11/03/24 11/03/24 Unknown History multivitamin (Daily Multi-Vitamin 1 tablet PO DAILY 11/03/24 11/03/24 Unknown History tablet) Allergies Allergy/AdvReac Type Severity Reaction Status Date / Time Sulfa (Sulfonamide Allergy Unknown Unknown Verified 10/16/24 12:11 Antibiotics) Review of Systems 2 Review of Systems: All systems reviewed & are unremarkable except as noted in HPI and below PMFSH Past Medical History Medical History CAD (coronary artery disease) HTN (hypertension) Hypercholesterolemia Family History Family History Other Cerebrovascular accident Diabetes mellitus Family history of malignant neoplasm Social History Social History Smoking status: Never smoker Second hand tobacco smoke exposure: No Alcohol intake: never Substance use: never Substance use type: does not use Do You Feel Safe in your Home?: Yes Lack of Transportation: No Lack of Food: Never True Current Housing: I Have Housing Concerned About Future Housing: No Difficulty Paying Gas/Electric Bills: No Difficulty Paying for Meds: No Currently Unemployed: No Education: High School Diploma/GED Difficulty w/ Childcare or Family Care: No Gender identity (if verbalized by the patient): Male Spiritual care concerns: No Exam 2 Narrative: ?White male patient with no apparent distress.? Head normocephalic, atraumatic.? Eyes conjunctiva pink sclera nonicteric.? Extraocular movements are intact.? Ears externally normal.? Oropharynx is clear with moist mucous membranes without exudates.? Neck is supple nontender no lymphadenopathy.? Back is nontender.? Lungs are clear.? Heart is regular rate and rhythm without murmurs gallops or rubs.? Chest wall nontender. Abdomen is soft and nontender no hepatosplenomegaly or masses no CVA tenderness no abdominal bruits.? Extremities no cyanosis clubbing or edema.? Skin is warm and dry without rashes or lesions.? Neurological patient is alert and oriented x 4. Motor and sensory grossly intact.? Gait is normal. Course Vital Signs Vital signs: Vital Signs Temperature 35.8 C L 11/03/24 09:34 Pulse Rate 72 11/03/24 09:34 Respiratory Rate 17 11/03/24 09:34 Blood Pressure 106/59 L 11/03/24 09:34 Pulse Oximetry 94 11/03/24 09:34 Oxygen Delivery Room Air 11/03/24 09:34 Temperature 36.9 C 11/03/24 16:00 Pulse Rate 79 11/03/24 16:00 Respiratory Rate 16 11/03/24 16:00 Blood Pressure 122/68 06/17/25 16:00 Pulse Oximetry 93 11/03/24 16:00 Oxygen Delivery Room Air 11/03/24 16:00 Medical Decision Making MDM Narrative Medical decision making narrative: Patient was placed in Room # History and physical was performed. Normal lactic acid magnesium and lipase. WBCs 12.7 with an H&H of 12.1 and 36.2 and normal platelets. GFR is 56 Osmo 281 sodium 135 rest of the chemistries were normal 11:30 a.m. supine blood pressure 123/69 and standing was 88/53 he felt dizzy lightheaded spur. Independent Historian: External Source Review: Differential Dx includes but not limited to: Medications were Reviewed: Home meds reviewed Independently Interpreted by me: Meds, treatment, ED course: normal saline 1 L Social Situation Impacting Patients Care: Shared decision Making: evaluation was discussed with the patient his daughter who is a nurse and his who all agreed with the plan. Discussed with Dr. Hill admit the patient observation 75 cc/hour normal saline and put him back on his 250 4 times a day vancomycin hold blood pressure medicine DISCHARGE DIAGNOSIS: clustered in difficile diarrhea hypotension DISPOSITION: admit to observation CONDITION AT DISCHARGE: stable Vital Signs Vital Signs: Vital Signs Temperature 35.8 C L 11/03/24 09:34 Pulse Rate 72 11/03/24 09:34 Respiratory Rate 17 11/03/24 09:34 Blood Pressure 106/59 L 11/03/24 09:34 Pulse Oximetry 94 11/03/24 09:34 Oxygen Delivery Room Air 11/03/24 09:34 Temperature 36.9 C 11/03/24 16:00 Pulse Rate 79 11/03/24 16:00 Respiratory Rate 16 11/03/24 16:00 Blood Pressure 122/68 11/03/24 16:00 Pulse Oximetry 93 11/03/24 16:00 Oxygen Delivery Room Air 11/03/24 16:00 Lab Data 11/03/24 09:54 11/03/24 09:54 Labs: Lab Results 11/03/24 Range/Units 09:54 WBC 12.7 H (4.8-10.8) K/mm3 RBC 3.90 L (4.70-6.10) M/mm3 Hgb 12.1 L (12.4-15.3) g/dL Hct 36.2 L (37.0-46.0) % MCV 92.8 (78.0-102.0) fL MCH 31.0 (27.0-31.0) pg MCHC 33.4 (32-36) g/dL RDW 12.4 (11.6-14.4) % Plt Count 224 (150-420) K/mm3 MPV 9.3 (8.7-11.0) fl Sodium 135 L (137-145) mmol/L Potassium 4.0 (3.4-5.0) mmol/L Chloride 105 (98-107) mmol/L Carbon Dioxide 26 (22-30) mmol/L Anion Gap 4 (4-12) mmol/L BUN 14 (9-20) mg/dL Creatinine 1.26 (0.7-1.3) mg/dL Estim Creat Clear Calc 55 ml/min Estimated GFR 56 L (59 - ) Glucose 116 H (65-110) mg/dL Calculated Osmolality 281 L (285-295) mOsm/kg Lactic Acid 0.7 (0.4-2.0) mmol/L Calcium 8.9 (8.4-10.2) mg/dL Magnesium 1.9 (1.6-2.3) mg/dL Total Bilirubin 1.3 (0.2-1.3) mg/dL AST 25 (17-59) U/L ALT 15 (6-50) U/L Alkaline Phosphatase 80 (38-126) U/L Total Protein 6.5 (6.3-8.2) g/dL Albumin 3.8 (3.5-5.1) g/dL Lipase 94 (23-300) U/L Discharge Plan Discharge Clinical Impression: C. difficile diarrhea, Acute dehydration Patient Disposition: Located within [facility] Condition: Stable Time of Disposition: 11:41
[2024-11-03] MEDS: SODIUM CHLORIDE 0.9% IV 1,000 ML 999 ML (09:59)
[2024-11-03 10:00] LABS: Hematocrit 36.2 % (37.0-46.0); Hemoglobin 12.1 g/dL (12.4-15.3); Mean Corpuscular HGB Conc 33.4 g/dL (32-36); Mean Corpuscular Volume 92.8 fL (78.0-102.0); Mean Platelet Volume 9.3 fl (8.7-11.0); Platelet Count Result 224 K/mm3 (150-420); Red Cell Distribution Width 12.4 % (11.6-14.4); White Blood Count 12.7 K/mm3 (4.8-10.8)
[2024-11-03 10:12] LABS: Alanine Aminotransferase 15 U/L (6-50); Albumin Level 3.8 g/dL (3.5-5.1); Alkaline Phosphatase 80 U/L (38-126); Anion Gap 4 mmol/L (4-12); Aspartate Amino Transferase 25 U/L (17-59); Bilirubin,Total 1.3 mg/dL (0.2-1.3); Blood Urea Nitrogen 14 mg/dL (9-20); Calcium 8.9 mg/dL (8.4-10.2); Carbon Dioxide 26 mmol/L (22-30); Chloride 105 mmol/L (98-107); Estimated CRCL calculation 55 ml/min; Estimated Glomerular Filt Rate 56; Glucose 116 mg/dL (65-110); Osmolality Calculated 281 mOsm/kg (285-295); Sodium 135 mmol/L (137-145); Total Protein 6.5 g/dL (6.3-8.2)
[2024-11-03 10:13] LABS: Lipase 94 U/L (23-300); Magnesium 1.9 mg/dL (1.6-2.3)
[2024-11-03 10:14] LABS: Lactic Acid Reflex 0.7 mmol/L (0.4-2.0)
--- OUTSIDE RECORDS SUMMARY | 2024-11-03 10:27 | XMS_ITS | Encounter Summary ---
Author Organization [facility] Address [address] [place] [address] Care Team Providers Care Recruiting Specialist Name Role Phone Maura Monzon DO Primary Care Provider [phone] Reason for Visit * Reason Comments Needs Orders Written Needs Orders Written Clinical Consult Before Scheduling Encounter Details Date Type Department Care Team (Late st Contact Info) Description 11/02/2024 Telephone [facility] Internal Medicine Medical [facility] 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 Discussed patient's stool positive for c.diff. Requested appointment today-no openings in clinic. Advised that we could schedule patient for tomorrow, but if he needs to be seen today, patient will have to go to urgent care. Kanika inquired if additional antibiotics will be sent in for patient-advised Kanika that I will check with provider and return call. Voiced understanding. Routed to provider for input. Debbie RN * Telephone Encounter - Jim Kamara - 11/03/2024 8:41 AM CDT Copied from [facility] #[id number]. Topic: Symptomatic Care >> Nov 03, 2024 8:36 AM Jim Perez wrote: Has this patient seen any provider (current or former) at the requested clinic in the past? Yes, Select the appropriate age range and symptom Patient has symptoms and is seeking care. Caller Name: Kanika - on PHI Callback Number: [phone] Call Notes: Patient has been having diarrhea since 10/31 ,he is weak and has done a stool sample and it cam back positive. He wants to be seen today but no appointments avaialble. Please advise Age Range/Symptom: Adult 18+ - Diarrhea Does [...] to schedule first available. Scheduled appointment for n/a. If this is not clinically appropriate, please contact patient. * Telephone Encounter - Maura Monzon DO - 11/02/2024 4:41 PM CDT He just completed abx for Cdiff, + stool culture can remain for weeks after treatment. Was this to check for clearance? * Telephone Encounter - Elyssa Mars - 11/02/2024 4:28 PM CDT German with [facility] calling to report critical results. Cdiff is positive. Will also fax results * Telephone Encounter - Elyssa Mars - 11/02/2024 3:10 PM CDT Spoke with agent, updated fax number provided. Lab order faxed to [phone] and [phone] * Telephone Encounter - Clair Ball - 11/02/2024 3:09 PM CDT Copied from [facility] #[id number]. Topic: Patient or Caregiver Communication Request >> Nov 02, 2024 3:06 PM Clair Reno wrote: Patient or Caregiver requesting that a message be sent to Care Team Caller: Ariana([facility]) Patient/Caregiver Callback Number: [phone] Call Notes: Ariana stated that patient Chapincito Howard is at front desk associate of the hospital they still haven't received the order she wants to make sure the office has the correct fax [phone]. Ariana would like to have a call back when the order is faxed * Telephone Encounter - Debbie Kelly RN - 11/02/2024 1:45 PM CDT 11/02/2024 1:45 PM Returned call and spoke with patient to provide notification that order for stool testing has been placed. Voiced understanding. Debbie RN * Telephone Encounter - Leroy Elizabeth PA-C [...] - 11/02/2024 9:11 AM CDT Copied from [facility] #[id number]. Topic: CPA Information Request - Order or Referral Request >> Nov 02, 2024 9:09 AM Jessica Walton wrote: Caller Name: Chapincito Howard Patient/Caregiver Callback Number: [phone] Call Notes: [phone] stnaton ill need a order to do [...] Description 12/15/2024 10:30 AM CDT Office Visit [facility] Internal Medicine Medical [place] [facility] [address] [address] Leroy Elizabeth PA-C [address] [facility] [address] [place] [address] 01/01/2025 11:30 AM CDT Office Visit [facility] Pulmonology [facility] [address] [facility] [facility] [address] [address] [place] [address] Bennie Sullivan, [facility] [address] [place] [address] Scheduled Orders Name Type Priority [...] documented as of this encounter Care Teams Recruiting Specialist Relationship Specialty Start Date End Date Maura Monzon DO [address] [place] [address] PCP - General Internal Medicine 04/09/19 documented as of this encounter
--- OUTSIDE RECORDS SUMMARY | 2024-11-03 10:27 | XMS_ITS | Encounter Summary ---
Author Organization [facility] Address [address] [place] [address] Care Team Providers Care Jet Wiper Name Role Phone Maura Monzon DO Primary Care Provider [phone] Reason for Visit * Reason Comments Question Encounter Details Date Type Department Care Team ([facility] st Contact Info) Description 10/29/2023 Telephone [facility] Internal Medicine Medical [facility] [address] [address] Maura Monzon, [address] [facility] [address] [place] [address] Question Social History Tobacco Use [...] often do you attend chur ch or voodoo services? 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 However after patient had labs done ordered 06/20/[address] Monzon they were billed for labs as out of network, informing him [facility] is fact out of network with his [employer] insurance. Spouse is asking for letter to be faxed to [facility] that oupatient labs ordered 06/20/[address] Monzon. Fax letter to [phone] with retroactive claim number [id number] on letter. Letter written. In Dr. Monzon [...] 1:23 PM CDT Copied from [facility] #[id number]. Topic: Patient or Caregiver Communication Request >> Oct 29, 2023 1:20 PM Kim Thomas wrote: Patient or Caregiver requesting advice Caller: on [facility] Patient/Caregiver Callback Number: [phone] (home) Call Notes: states that they need a referral to their insurance for lab. Stating that the dr ordered the lab work in June. Please fax to [phone]. Please advise. This is all the details that she gave me. Please advise. Here is the retro claim # [id number] documented in this encounter Plan of Treatment Upcoming Encounters Date Type Department Care Team (Late st Contact Info) Description 12/15/2024 10:30 AM CDT Office Visit [facility] Internal Medicine Medical [address] [place] [address] Leroy Elizabeth PA-C [address] [place] [address] [place] [address] 01/01/2025 11:30 AM CDT Office Visit [facility] Pulmonology [address] [place] [address] Bennie Sullivan, ASSISTANT MANAGER [address] [place] [address] [address], [place] [address] documented as of this encounter Visit Diagnoses Not on filedocumented in this encounter Care Teams Jet Wiper Relationship Specialty Start Date End Date Maura Monzon DO [address] [place] [address] PCP - General Internal Medicine 04/09/19 documented as of this encounter
--- OUTSIDE RECORDS SUMMARY | 2024-11-03 10:27 | XMS_ITS | Encounter Summary ---
Author Organization [facility] Address [address] [place] [address] Care Team Providers Care Nurse College Name Role Phone Unavailable Primary Care Provider Unavailabl e Encounter Details Date Type Department Care Team (Late st Contact Info) Description 10/30/2023 Lab Requisition [facility] DermPath Lab [address] [place] [address] Shawn Adkins MD [facility] DERMATOLOGY [address] [place] [phone] Neoplasm of uncertain behavior of skin Social History Tobacco Use Types Packs/Day Years Used Date Smoking Tobacco: Never Assessed Sex and Gender Information Value Date Recorded Sex Assigned at Not on file 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 Gender Identity Not on file Sexual Orientation Not on file documented as of this encounter Plan of Treatment Not on file documented as of this encounter Procedures Procedure Name Priority Date/Time Associated Diagnosis Comments DERMATOPATHOLOGY Routine 10/30/2023 12:0 0 AM CDT Neoplasm of uncertain behavior of skin documented in this encounter Results * DERMATOPATHOLOGY (10/30/2023 12:00 AM CDT) Case Report Dermatopathology Report Case: [id number] Authorizing Provider: Shawn Adkins MD Collected: 10/30/2023 12:00 AM Ordering Location: [facility] - Received: 10/31/2023 04:29 PM DermPath Lab Pathologist: Lindsay Leblanc MD Specimen: Skin, right jain 06/17/202 4 4:31 PM CDT DERMATOPATHOLOGY LABORATORY Final Diagnosis Specimen A. 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 The specimen consists of a shave biopsy measuring 7x6x1 mm. Jar 0. 4 4:31 PM CDT DERMATOPATHOLOGY LABORATORY Microscopic Description Specimen A. SKIN, right jain: The epidermis shows parakeratosis, full thickness disorderly [...] characteristic determined by the Dermatopathology Laboratory at [facility], directed by Dr. Justin Kiran. These tests need not be, and therefore are not, approved by the [place] Food and Drug Administration. The tests are used for clinical purposes. Billing Codes Specimen Charges Stain Charges 90560 1 4 4:31 PM CDT DERMATOPATHOLOGY LABORATORY Embedded Images 4 4:31 PM CDT DERMATOPATHOLOGY LABORATORY Pathology/Cytolog y TISSUE SPECIMEN FROM SKIN / Unknown 10/30/2023 10/31/2023 4:29 PM CDT us Shawn Adkins MD LAB - PATHOLOGY/CYTOLOGY JAMIL BILLS Final Result DERMATOPATHOLOGY LABORATORY [facility] - Department of Dermatology [address], [address] [phone] documented in this encounter Visit Diagnoses Diagnosis Neoplasm of uncertain behavior of skin documented in this encounter
--- OUTSIDE RECORDS SUMMARY | 2024-11-03 10:27 | XMS_ITS | Clinical Summary ---
Author Organization [facility] Address [address] [place] [address] Phone Care Team Providers Care Wind Turbine Technician Name Role Phone Maura Monzon Primary Care Provider [phone] Allergies Active Allergy Reactions Criticality Noted Date Comments Sulfa (Sulfonamide Antibiotics) Unknown 03/21 Medications aspirin (ECOTRIN EC) 81 mg Tablet, Delayed Release (E.C.)Indications:Aorti c atherosclerosis,Atheros clerosis of [place] coronary artery of [place] heart without angina pectoris Take 1 Tablet (81 mg) by mouth daily. 024 Active multivitamin with pcxyejww-wdrrgkdc-cfsfb n (Centrum Silver) 0.4 mg-300 mcg- 250 [...] 1 Active fluticasone propionate (FLONASE) 50 mcg/spray [place], Suspension nasal inhaler Administer 2 Sprays in each nostril daily. 48 Gram 3 Active lactobacillus rhamnosus, GG, (CULTURELLE) 10 billion cell Capsule Take 1 Capsule by mouth daily. 100 Capsule 3 Active fidaxomicin (DIFICID) 200 mg TabletIndications:C. difficile diarrhea Take 1 Tablet (200 mg) by mouth 2 times daily for 10 days. 20 Tablet 025 2024 Active donepeziL (ARICEPT) 5 mg tablet Take [...] 09/15/2024 Transient ischemic attack 09/15/2024 Atherosclerosis of [place] co ronary artery of [place] heart without angina pectoris 06/19/2022 Aortic atherosclerosis 06/19/2022 ULYSSES on CPAP 11/14/2021 Benign hypertension 11/14/2021 Prediabetes 09/30/2020 Hyperlipidemia 04/09/2019 Encounters Date Type Department Care Team Description 11/02/2024 Telephone [facility] [address] [place] [address] Maura Monzon, Results 11/02/2024 Telephone [facility] Internal [facility] [address] [address] Maura Monzon, Needs Orders Written; Needs Orders Written; Clinical Consult Before Scheduling 10/27/2024 11:30 AM CDT Office Visit [facility] [address] [address] Leroy Elizabeth PA-C C. difficile diarrhea (Primary Dx) 10/21/2024 [facility] [address] [address] Maura Monzon, DO Appointment Verification 10/16/2024 [facility] [address] [address] Maura Monzon, DO Clinical Consult Before Scheduling 10/08/2024 [facility] [address] [address] Maura Monzon, DO Clinical Consult Before Scheduling 10/08/2024 External Device Data ST[facility] ABSTRACTION Provider, Abstract 10/07/2024 External Device Data [facility] [place] Provider, Abstract 10/07/2024 External Device Data [facility] Provider, Abstract 10/06/2024 External Device Data [place] Provider, Abstract 09/22/2024 External Device Data [facility] Provider, Abstract 09/22/2024 External Device Data [facility] Provider, Abstract 09/15/2024 10:00 AM CDT Office Visit [facility] [address] [address] Leroy Elizabeth PA-C Moderate dementia without behavioral disturbance, psychotic disturbance, mood disturbance, or anxiety, unspecified dementia type (CMS/HCC) (Primary Dx); Memory loss 09/04/2024 [facility] [address] [address] Maura Monzon, DO Erroneous encounter-disregard 09/01/2024 [facility] [address] [address] Maura Monzon, 08/17/2024 Telephone [facility] Internal Medicine Medical [place] [address] [address] Maura Monzon, Needs Orders Written 08/13/2024 Refill [facility] Internal Medicine Medical [place] [address] [address] Maura Monzon, 08/10/2024 Orders Only [facility] [place] [address] [address] Suraj Valdez MD 08/05/2024 External Device Data [facility] ABSTRACTION Provider, Abstract from Last 3 Months Immunizations Immunization Administration Dates Next Due (COMIRNATY)(12 YR UP) COVID- 19 VACCINE, MRNA, SPIKE PROTEIN, LNP, ALMAS(PF) 30 MCG/0.3 ML IM SUSP 02/28/2024 (PREVNAR 13)(6 WKS UP) PNEUM OCOCCAL CONJUGATE (PCV13) 0.5 ML, IM 06/19/2021 (PREVNAR 20)(6 WKS UP) PNEUM OCOCCAL CONJUGATE VACCINE 20-VALENT (PCV20), POLYSACCHARIDE [id number] CONJUGATE, ADJUVANT 0.5 ML (PF) IM 06/19/2022 [...] often do you attend chur ch or orthodox services? 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 on file Not on file [...] Office Visit [facility] Internal [facility] [place] [address] [address] [address] Leroy Elizabeth, PAMarlenaC [address] [address] [place] [address] 01/01/2025 11:30 AM CDT Office Visit [facility] Pulmonology [address], [place] [address] Bennie Sullivan, BATOOL [address] [place] [address] Health Maintenance Due Date Last Done [...] - 1-dose 75+ series) 2024 COVID-19 Vaccine (2023- season) 2024 02/28/2024, 08/14/2020, 07/17/2020 COLORECTAL SCREENING 05/20/2025 05/20/2015 (Previously completed) Colorectal Cancer Screening 05/20/2025 [place] Preventative Visit/Annual Wellness Visit 2025 06/20/2023, 06/19/2022, 06/19/2022, Additional history exists Postponed from 05/20/2024 (Therapeutic Plan Prohibits) PNEUMOCOCCAL VACCINE 50+ YEARS Completed 06/19/2022, 06/19/2021 INFLUENZA VACCINE Completed 02/28/2024, , 02/17/2021, Additional history exists Insurance [facility] [id number] RX [employer] Medicare Part B Care Teams Wind Turbine Technician Relationship Specialty Start Date End Date Maura Monzon DO [address] [place] [address] PCP - General Internal Medicine 04/09/19
--- OUTSIDE RECORDS SUMMARY | 2024-11-03 10:27 | XMS_ITS | Encounter Summary ---
Author Organization [facility] Address [address] [place] [address] Care Team Providers Care Fretted Instrument Maker Hand Name Role Phone Maura Monzon DO Primary Care Provider [phone] Reason for Visit * Reason Comments Provider Call Encounter Details Date Type Department Care Team (Late st Contact Info) Description 08/28/[address] [facility] Internal Medicine Medical [facility] [address] [address] Maura Monzon, [address] [place] [address] Provider Call Social History Tobacco [...] often do you attend chur ch or restorationist services? 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 Glez Office @ [phone] * Telephone Encounter - Jovi Claire - 08/28/2023 1:31 PM CDT Copied from [facility] #[id number]. Topic: [id number] Call >> Aug 28, 2023 1:30 PM Jovi Downey wrote: Caller is requesting to speak with Clinical Care Team. Caller Name: Maih Joseph office Callback Number: [phone] Clinician Type: Healthcare Professional Call Notes:Mahi Joseph office is calling in to see if paperwork was faxed over to [employer] Is this addressing an immediate patient care need? Yes documented in this encounter Plan of Treatment Upcoming Encounters Date Type Department Care Team (Late st Contact Info) Description 12/15/2024 10:30 AM CDT Office Visit [facility] Internal Medicine Medical [place] [address] [address] [address] Leroy Elizabeth PA-C [address] [facility] [place] [address] 01/01/2025 11:30 AM CDT Office [facility] Pulmonology [facility] [address] [place] [address] Bennie Sullivan, BATOOL [address] [place] [address] documented as of this encounter Visit Diagnoses Not on filedocumented in this encounter Care Teams Fretted Instrument Maker Hand Relationship Specialty Start Date End Date Maura Monzon DO [address] [facility] [address] [facility] [address] [place] [address] PCP - General Internal Medicine 04/09/19 documented as of this encounter
--- OUTSIDE RECORDS SUMMARY | 2024-11-03 10:27 | XMS_ITS | Encounter Summary ---
Author Organization [facility] Address [address] [place] [address] Care Team Providers Care Landscape Engineer Name Role Phone Maura Monzon Primary Care Provider [phone] Reason for Visit * Reason Comments Hospital Follow Up Encounter Details Date Type Department Care Team (Late st Contact Info) Description 10/27/2024 11:30 AM CDT Office Visit [facility] Internal Medicine Medical [place] [address] [address] [place] [address] Leroy Elizabeth PA-C [address] [place] [address] [address] [place] [address] C. 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 * Clostridioides difficile colitis (Kittitian) documented in this encounter Progress Notes * Leroy Elizabeth PA-C - 10/27/2024 11:12 AM CDT [facility] Internal Medicine Outpatient Progress Note Chief Complaint Patient presents with Hospital Follow Up History of Present Illness 74-year-old male with moderate dementia, hypertension, prediabetes, hyperlipidemia, and ULYSSES presents for hospital follow-up. On 10/08/2024, reported cough, yellow nasal discharge, and sinus pressure for 3 weeks despite nasal spray and Claritin. Prescribed Augmentin for 7 days, developed diarrhea. Di agnosed with C. difficile on 10/16/2024, treated with vancomycin 125 mg QID for 10 days. Reports improvement with normal bowel movements, one per day for past 4-5 days, no blood or diarrhea. Completed 10-day vancomycin course, last dose on 10/25 at 6:00 AM. Hydrated and good appetite. No fevers, fatigue, nausea, vomiting, hematuria, abdominal pain, SOB, chest pain, rash, weakness, numbness, or headaches. Sinus symptoms improved post- antibiotic. Eating yogurt. Patient Active Problem List Diagnosis Code Hyperlipidemia E78.5 Prediabetes R73.03 ULYSSES on CPAP G47.33 Benign hypertension I10 Atherosclerosis of [place] coronary artery of [place] heart without angina pectoris I25.10 Aortic atherosclerosis I70.0 Urolithiasis N20.9 Syncope and collapse R55 Transient ischemic attack G45.9 Moderate dementia without behavioral disturbance, psychotic disturbance, mood disturbance, or anxiety (CMS/[facility]) F03.B0 C. difficile diarrhea A04.72 Current Outpatient Medications on File Prior to Visit Medication Sig Dispense Refill donepeziL (ARICEPT) 10 mg tablet Take 1 Tablet (10 mg) by mouth daily at bedtime. 100 Tablet 1 carvediloL (COREG) 6.25 mg tablet 6.25 mg. benzonatate (TESSALON) 200 mg capsule Take 1 Capsule (200 mg) by mouth 3 times daily as needed for Cough. 90 Capsule 0 lovastatin (MEVACOR) 20 mg tablet Take 1 Tablet (20 mg) by mouth daily. 100 Tablet 3 lisinopriL (PRINIVIL) 10 mg tablet Take 1 Tablet (10 mg) by mouth daily. 100 Tablet 3 multivitamin with ilvlbcuz-hietpvyh-nwvvmm (Centrum Silver) 0.4 mg-300 mcg- 250 mcg Tablet per tablet 1 tablet(s), Oral, daily, 30 tablet(s), Tablet(s), 0 lutein 20 mg Tablet 20 mg. aspirin (ECOTRIN EC) 81 mg Tablet, Delayed Release (E.C.) Take 1 Tablet (81 mg) by mouth daily. No current facility-administered medications on file prior to visit. Family History Problem Relation Name Age of Onset Other Father tractor ran over him Healthy Father Healthy Mother Heart Attack Brother No Known Problems Daughter No Known Problems Son No Known Problems Brother No Known Problems Brother No Known Problems Daughter No Known Problems Daughter Social History Tobacco Use Smoking status: Never Smokeless tobacco: Never Substance Use Topics Alcohol use: Not Currently Review of Systems Constitutional: Negative for fatigue and fever. Respiratory: Negative for shortness of breath. Cardiovascular: Negative for chest pain. Gastrointestinal: Negative for abdominal pain, blood in stool, constipation, diarrhea, nausea and vomiting. Genitourinary: Negative for hematuria. Skin: Negative for rash. Neurological: Negative for weakness and headaches. Objective: BP 134/68 Pulse 66 Temp 97.1 ??F (36.2 ??C) (Temporal) Resp 16 Ht 5' 11 (1.803 m) Wt 101.5 kg (223 lb 12.8 oz) SpO2 96% BMI 31.21 kg/m?? BP Readings from Last 8 Encounters: 10/27/24 134/68 09/15/24 120/72 07/28/24 112/68 12/04/23 104/64 10/16/23 104/65 06/20/23 122/60 08/30/22 110/64 06/19/22 112/64 Physical Exam Vitals reviewed. Constitutional: General: He is not in acute distress. Appearance: Normal appearance. HENT: Head: Normocephalic and atraumatic. Cardiovascular: Rate and Rhythm: Normal rate and regular rhythm. Heart sounds: No murmur heard. Pulmonary: Effort: Pulmonary effort is normal. No respiratory distress. Breath sounds: Normal breath sounds. No wheezing, rhonchi or rales. Abdominal: General: Abdomen is flat. There is no distension. Palpations: Abdomen is soft. Tenderness: There is no abdominal tenderness. There is no guarding. Neurological: General: No focal deficit present. Mental Status: He is alert. Psychiatric: Mood and Affect: Mood normal. Behavior: Behavior normal. Thought Content: Thought content normal. Judgment: Judgment normal. Results Assessment and Plan: [place] was seen today for hospital follow up. Diagnoses and all orders for this visit: C. difficile diarrhea Other orders - fluticasone propionate (FLONASE) 50 mcg/spray [place], Suspension nasal inhaler; Administer 2 Sprays in each nostril daily. - lactobacillus rhamnosus, GG, (CULTURELLE) 10 billion cell Capsule; Take 1 Capsule by mouth daily. Assessment & Plan 1. Clostridium difficile infection: Acute. - Diagnosed 10/16/2024, completed 10-day vancomycin 125 mg QID. - Improved with solid stools, no blood. - Inform providers of C. difficile history before future antibiotics. - Prescribed probiotic, advised hydration and balanced diet. Contact clinic if adverse symptoms. 2. Sinusitis: Acute. - Sinus symptoms: cough, yellow nasal discharge, sinus pressure. - Augmentin led to C. difficile, symptoms improved. - Prescribed Flonase nasal spray. - Cautious future antibiotic use, possible vancomycin co-prescription. 3. Medication management. - Taking aspirin, benzonatate PRN, carvedilol, memory medication. - Adherent, no new medications. Follow-up - Appointment scheduled for 11/2024. Allen Elizabeth PA-C documented in this encounter Miscellaneous Notes * Addendum Note - Leroy Elizabeth PA-C - 11/03/2024 9:24 AM CDTAddended by: LEROY ELIZABETH on: 11/03/2024 09:24 AM Modules accepted: Orders * Patient Instructions - Leroy Elizabeth PA-C - 10/27/2024 11:22 AM CDT Vancomycin has been completed and diarrhea improved. Continue hydration with water and electrolytes and let us know if diarrhea returns. If prescribed antibiotics in the future, please let prescribing physician know, because we might consider prescribing Vancomycin with antibiotics in the future. Take daily probiotic. Nasal spray and probiotic sent to your pharmacy. documented in this encounter Plan of Treatment Upcoming Encounters Date Type Department Care Team (Late st Contact Info) Description 12/15/2024 10:30 AM CDT Office Visit [facility] Internal Medicine Medical [facility] [address] [address] Leroy Elizabeth PA-C [address] [facility] [address] [facility] [address] [place] [address] 01/01/2025 11:30 AM CDT Office Visit [facility] Pulmonology [facility] [address] [place] [address] Bennie Sullivan, [facility] [address] [place] [address] documented as of this encounter Visit Diagnoses Diagnosis C. difficile diarrhea- Primary Intestinal infection due to clostridium difficile documented in this encounter Additional Health Concerns Assessment Noted Time PHQ-9 Depression Total Score: 1 07/29/19 25 10:21 AM CDT documented as of this encounter Care Teams Landscape Engineer Relationship Specialty Start Date End Date Maura Monzon DO [address] [facility] [address] [place] [address] PCP - General Internal Medicine 04/09/19 documented as of this encounter
--- OUTSIDE RECORDS SUMMARY | 2024-11-03 10:27 | XMS_ITS | Clinical Summary ---
Author Organization [facility] Address [address] [place] [address] Care Team Providers Care Radio Mechanic Name Role Phone Michael Galvan MD Unavailable Maura Monzon DO Primary Care Provider [phone] Allergies No known active allergies Medications lisinopriL (PRINIVIL,ZESTR [place]) 20 mg tablet Take 1 tablet (20 mg total) by mouth daily Active lovastatin (MEVACOR) 20 mg tablet Take 1 tablet (20 mg total) by mouth nightly Active Active Problems Problem Noted Date Diagnosed Date Kidney stone 07/04/2022 Overview (07/04/2022): Added automatically from request for surgery [id number] Surgical History Surgery Date Site/Laterality Comments TONSILLECTOMY/ADENOIDECTOMY [...] on file 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 BEAN SPROUT GROWER Gender Identity Not on file Sexual Orientation [...] 104.3 kg (230 lb) 07/27/2022 1:20 PM BEAN SPROUT GROWER Height 182.9 cm (6') 07/27/2022 1:20 PM BEAN SPROUT GROWER Body Mass Index 31.19 07/27/2022 1:20 PM BEAN SPROUT GROWER Plan of Treatment Health Maintenance Due Date [...] history exists Medical Devices Implanted Type Area Construction Estimator Device Identifier Shelf Expiration Date Model / Serial / Lot [employer] Universa 5fr 28cm Radiopaque Positioner Braid Tether Firm 2 [id number] - [id number] Implanted:Qty: 1 on 08/20/2022 by Michael Galvan MD at [facility] Left: [employer] 06/01/2025 [id number] / / [id number] [employer] Universa 5fr 28cm Radiopaque Positioner Braid Tether Firm 2 [id number] - [id number] Implanted:Qty: 1 on 08/20/2022 by Michael Galvan MD at [facility] Right: [employer] 05/28/2025 [id number] / / [id number] Insurance [facility] MEDICARE ADV[facility]AGE [facility] MEDICARE Address: [address] [address] [place] [address] [facility] MEDICARE HMO Care Teams Radio Mechanic Relationship Specialty Start Date End Date Maura Monzon DO [address] [place] [address] PCP - General Internal Medicine 02/27/23 Michael Galvan MD Consulting Physician Urology 08/20/22
--- OUTSIDE RECORDS SUMMARY | 2024-11-03 10:27 | XMS_ITS | Encounter Summary ---
Author Organization [facility] Address [address] [place] [address] Care Team Providers Care Router Operator Radial Name Role Phone Maura Monzon DO Primary Care Provider [phone] Reason for Visit * Reason Comments Clinical Consult Before Scheduling Encounter Details Date Type Department Care Team (Late st Contact Info) Description 10/16/2024 Telephone [facility] Internal Medicine Medical [facility] [address] [facility] [address] [place] [address] Maura Monzon, [address] [facility] [facility] [address] [place] [address] Clinical Consult Before Scheduling Social [...] often do you attend chur ch or moravian services? 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 Topic: Symptomatic Care >> October 16, 2024 10:58 AM Nae Santa wrote: Has this patient seen any provider (current or former) at the requested clinic in the past? Yes, Select the appropriate age range and symptom Patient has symptoms and is seeking care. Caller Name: Kanika([facility]) Callback Number: [phone] Call Notes: diarrhea x 2 days getting [...] Description 12/15/2024 10:30 AM CDT Office Visit [facility] Internal Medicine Medical [place] [address] [address] Leroy Elizabeth PA-C [address] [address] [place] [address] 01/01/2025 11:30 AM CDT Office Visit [facility] Pulmonology [address] [place] [address] Bennie Sullivan, [place] [address] [place] [facility] [address] [place] [address] documented as of this encounter Visit Diagnoses Not on filedocumented in this encounter Additional Health Concerns Assessment Noted Time PHQ-9 Depression Total Score: 1 07/29/19 25 10:21 AM CDT documented as of this encounter Care Teams Router Operator Radial Relationship Specialty Start Date End Date Maura Monzon DO [address] [place] [address] PCP - General Internal Medicine 04/09/19 documented as of this encounter
--- OUTSIDE RECORDS SUMMARY | 2024-11-03 10:27 | XMS_ITS | Encounter Summary ---
Author Organization [facility] Address [address] [place] [address] Care Team Providers Care Operators Teacher Name Role Phone Maura Monzon DO Primary Care Provider [phone] Reason for Visit * Reason Comments Insurance Issues Encounter Details Date Type Department Care Team (Late st Contact Info) Description 03/03/2024 Telephone [facility] Internal Medicine Medical [facility] [address] [address] Maura Monzon, [address] [place] [address] Insurance Issues Social History Tobacco [...] often do you attend chur ch or adventism services? 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 oMnzon and performed on 06/22/23: Lipid panel, HgbA1c, CMP, CBC with diff, PSA, and TSH. Additionally they requested the NPI for [facility]. * Telephone Encounter - Mariah Shea - 03/03/2024 12:51 PM CDT Copied from [facility] #[id number]. Topic: Patient or Caregiver Communication Request >> Mar 03, 2024 12:48 PM Mariah Funk wrote: Patient or Caregiver requesting that a message be sent to Care Team Caller: Kanika on [facility] Patient/Caregiver Callback Number: [phone] (home) Call Notes: Kanika on phi Insurance needs PCP to contact [employer] to let them know PCP is the one who prescribed labs. Number # [phone] Monzon's is the one that ordered the labs from 06/22/2023. Per insurance. documented in this encounter Plan of Treatment Upcoming Encounters Date Type Department Care Team (Late st Contact Info) Description 12/15/2024 10:30 AM CDT Office Visit [facility] Internal Medicine Medical [place] [address] [address] [address] Leroy Elizabeth PA-C [address] [place] [address] 01/01/2025 11:30 AM CDT Office Visit [facility] Pulmonology [facility] [address] [place] [address] Bennie Sullivan, TECHNOLOGY EDUCATION TEACHER [address] [place] [address] documented as of this encounter Visit Diagnoses Not on filedocumented in this encounter Care Teams Operators Teacher Relationship Specialty Start Date End Date Maura Monzon DO [address] [place] [address] PCP - General Internal Medicine 04/09/19 documented as of this encounter
--- OUTSIDE RECORDS SUMMARY | 2024-11-03 10:27 | XMS_ITS | Encounter Summary ---
Author Organization [facility] Address [address] [place] [address] Care Team Providers Care Public Health Aide Name Role Phone Maura Monzon DO Primary Care Provider [phone] Reason for Visit * Reason Comments Provider Call Encounter Details Date Type Department Care Team (Late st Contact Info) Description 10/21/2023 Telephone [facility] Internal Medicine Medical [facility] [address] [address] Maura Monzon, [address] [place] [address] Provider Call Social History Tobacco [...] any clubs o r organizations such as yazdanism groups, unions, fraternal or athletic groups, or [...] on file Legal Sex Male 4:40 AM MAINTENANCE PIPEFITTER Gender Identity Not on file Sexual Orientation Not on file Occupation Industry Job Start Date Job End Date 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 Notified audit practice intern who will notify the pt once the issue is resolved. * Telephone Encounter - Melissa Qiu - 10/21/2023 1:20 PM CDT Copied from [facility] #[id number]. Topic: Tefaxqxz-Kx-Dnixbeik Call >> Oct 21, 2023 1:16 PM Melissa Downey wrote: Caller is requesting to speak with Clinical Care Team. Caller Name: KIRSTY Champagne Office Callback Number: [phone] Clinician Type: Healthcare Professional Call Notes: Calling [...] [facility] Medical [place] [address] [address] [address] Leroy Elizabeth, ESPERANZA [address] [place] [address] 01/01/2025 11:30 AM CDT Office Visit [facility] Pulmonology [facility] [address] [place] [address] Bennie Sullivan, [facility] [address] [place] [address] documented as of this encounter Visit Diagnoses Not on filedocumented in this encounter Care Teams Public Health Aide Relationship Specialty Start Date End Date Maura Monzon DO [address] [place] [address] PCP - General Internal Medicine 04/09/19 documented as of this encounter
--- OUTSIDE RECORDS SUMMARY | 2024-11-03 10:27 | XMS_ITS | Clinical Summary ---
Author Organization [facility] Address [address] [place] [address] Phone Care Team Providers Care Swimming Pool Servicer Name Role Phone Maura Monzon Primary Care Provider [phone] Allergies No known active allergies Medications lisinopril [...] on file Medical Devices Implanted Type Area Bpm Developer Device Identifier Shelf Expiration Date Model / Serial / Lot Technis 1-Piece Iol With Simplicity Delivery System Implanted:Qty: 1 on 08/13/2022 by Antelmo Barry MD at [facility] Right: Eye 03/31/2025 [id number] / [id number] / [id number] Technis 1-Piece Iol With Simplicity Delivery System Implanted:Qty: 1 on 09/10/2022 by Antelmo Barry MD at [facility] Left: Eye [employer] 06/17/2024 [id number] / [id number] / [id number] Insurance on file Care Teams Swimming Pool Servicer Relationship Specialty Start Date End Date Maura Monzon DO [address] [place] [address] PCP - General Internal Medicine 08/03/22
--- OUTSIDE RECORDS SUMMARY | 2024-11-03 10:27 | XMS_ITS | Referral Summary ---
Author Organization [facility] Address [address] [place] [address] Care Team Providers Care Archery Equipment Hay Sorter Name Role Phone Michael Galvan MD Unavailable Maura Monzon DO Primary Care Provider [phone] Allergies No known active allergies Medications lisinopriL (PRINIVIL,ZESTR IL) 20 mg tablet Take 1 tablet (20 mg total) by mouth daily Active lovastatin (MEVACOR) 20 mg tablet Take 1 tablet (20 mg total) by mouth nightly Active Active Problems Problem Noted Date Diagnosed Date Kidney stone 07/04/2022 Overview (07/04/2022): Added automatically from request for surgery [id number] Social History Tobacco Use Types Packs/Day Years [...] on file 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 A AUXILIARY Gender Identity Not on file Sexual Orientation [...] 104.3 kg (230 lb) 07/27/2022 1:20 PM A AUXILIARY Height 182.9 cm (6') 07/27/2022 1:20 PM A AUXILIARY Body Mass Index 31.19 07/27/2022 1:20 PM A AUXILIARY Plan of Treatment Not on file Medical Devices Implanted Type Area Claim Trainee Device Identifier Shelf Expiration Date Model / Serial / Lot [employer] Universa 5fr 28cm Radiopaque Positioner Braid Tether Firm 2 [id number] - [id number] Implanted:Qty: 1 on 08/20/2022 by Michael Galvan MD at [facility] Left: Ureter [employer] 06/01/2025 [id number] / / [id number] [employer] Universa 5fr 28cm Radiopaque Positioner Braid Tether Firm 2 [id number] - [id number] Implanted:Qty: 1 on 08/20/2022 by Michael Galvan MD at [facility] Right: Ureter [employer] 05/28/2025 [id number] / / [id number] Insurance [facility] MEDICARE ADVANTAGE [employer] MEDICARE HMO Care Teams Archery Equipment Hay Sorter Relationship Specialty Start Date End Date Maura Monzon DO [address] [place] [address] PCP - General Internal Medicine 02/27/23 Michael Galvan MD Consulting Physician Urology 08/20/22
--- OUTSIDE RECORDS SUMMARY | 2024-11-03 10:27 | XMS_ITS | Encounter Summary ---
Author Organization [facility] Address [address] [place] [address] Care Team Providers Care Yarn Winder Name Role Phone Maura Monzon DO Primary Care Provider [phone] Reason for Visit * Reason Comments Results Encounter Details Date Type Department Care Team ([facility] st Contact Info) Description 11/02/2024 Telephone [facility] Internal Medicine Medical [facility] [address] [address] Maura Monzon, [address] [facility] [address] [place] [address] Results Social History Tobacco Use Types Packs/Day Years [...] often do you attend chur ch or sabianism services? 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 No answer. Left voice mail/message to return our call. If patient/caregiver calls back, contact center please transfer caller to N line. Debbie CHANG * Telephone Encounter - Debbie Kelly RN - 11/03/2024 9:27 AM CDT 11/03/2024 9:27 AM Returned call. No answer. Left voice mail/message to return our call. If patient/caregiver calls back, contact center please transfer caller to N line. 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 Follow up video visit in2-3 weeks. 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 Follow up video visit in2-3 weeks. * Telephone Encounter - Elyssa Mars - 11/02/2024 4:32 PM CDT See other TE today * Telephone Encounter - Yany Domingo - 11/02/2024 4:29 PM CDT Copied from [facility] #[id number]. Topic: CPA Information Request - Results >> Nov 02, 2024 4:26 PM Yany Ontiveros wrote: Caller is requesting information about results from an order. ? Caller Name: [place] [facility] Callback Number: [phone] Test Name:German request to speak with office to discussed crtical results Results Encounter notes are: In chart with clinical documentation - not approved to provide Did clinic leave instructions to transfer call to a specific line/place? No Call Notes: Transferred to clinic to discuss critical results documented in this encounter Plan of Treatment Upcoming Encounters Date Type Department Care Team (Late st Contact Info) Description 12/15/2024 10:30 AM CDT Office Visit [facility] Internal Medicine Medical [place] [address] [address] Leroy Elizabeth PA-C [address] [place] [address] 01/01/2025 11:30 AM CDT Office Visit [facility] Pulmonology [facility] [address] [place] [address] Bennie Sullivan, [facility] [address] [place] [address] documented as of this encounter Visit Diagnoses Not on filedocumented in this encounter Additional Health Concerns Assessment Noted Time PHQ-9 Depression Total Score: 1 07/29/19 25 10:21 AM CDT documented as of this encounter Care Teams Yarn Winder Relationship Specialty Start Date End Date Maura Monzon DO [address] [facility] [address] [place], [place] [address] PCP - General Internal Medicine 04/09/19 documented as of this encounter
--- OUTSIDE RECORDS SUMMARY | 2024-11-03 10:27 | XMS_ITS | Clinical Summary ---
Author Organization [facility] Address [address] [place] [address] Care Team Providers Care Dental Biller Name Role Phone Unavailable Primary Care Provider Unavailabl e Source Comments [facility],non-owned Affiliates and Associated Physician Practices is amultiple site organization consisting of ambulatory clinics and hospital sitesin [place], [place], [place] and [place]. This disclosure is being madepursuant to the Care Everywhere program and may not contain all information available regarding this patient. Last updated 18.[facility] o[facility] Social History Tobacco Use Types Packs/Day Years Used Date Smoking Tobacco: Never Assessed Sex and Gender Information Value Date Recorded Sex Assigned at Not on file Legal Sex Male 3:56 PM CIVIL ESTIMATOR Gender Identity Not on file Sexual Orientation [...] ADV HMO & PPO MEDICARE MEDICARE MEDICARE [facility]
--- OUTSIDE RECORDS SUMMARY | 2024-11-03 11:28 | XMS_ITS | Encounter Summary ---
Author Organization [facility] Address [address] [place] [address] Care Team Providers Care Technical Sales Support Specialist Name Role Phone Maura Monzon DO Primary Care Provider [phone] Reason for Visit * Reason Comments Results Encounter Details Date Type Department Care Team ([facility] st Contact Info) Description 11/02/2024 Telephone [facility] Internal Medicine Medical [facility] [address] [address] Maura Monzon, [address] [place] [address] Results Social History Tobacco Use [...] often do you attend chur ch or mosque services? 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 Topic: CPA Information Request - Results >> Nov 02, 2024 4:26 PM Yany Ontiveros wrote: Caller is requesting information about results from an order. ? Caller Name: German [facility] Callback Number: [phone] Test Name:German request to speak with office [...] Visit [facility] Internal Medicine Medical [place] [address] [address] Leroy Elizabeth PA-C [address] [facility] [address] [place] [address] 01/01/2025 11:30 AM CDT Office Visit [facility] Pulmonology [facility] [address] [place] [address] Bennie Sullivan, [facility] [address] [place] [address] documented as of this encounter Visit Diagnoses Not on filedocumented in this encounter Additional Health Concerns Assessment Noted Time PHQ-9 Depression Total Score: 1 07/29/19 25 10:21 AM CDT documented as of this encounter Care Teams Technical Sales Support Specialist Relationship Specialty Start Date End Date Maura Monzon DO [address] [place], [place] [address] PCP - General Internal Medicine 04/09/19 documented as of this encounter
--- OUTSIDE RECORDS SUMMARY | 2024-11-03 11:28 | XMS_ITS | Encounter Summary ---
Author Organization [facility] Address [address] [place] [address] Care Team Providers Care Director Investment Banking Name Role Phone Maura Monzon DO Primary Care Provider [phone] Reason for Visit * Reason Comments Clinical Consult Before Scheduling Encounter Details Date Type Department Care Team (Late st Contact Info) Description 10/16/2024 Telephone [facility] Internal Medicine Medical [facility] [address] [place] [address] Maura Monzon, [address] [place] [address] Clinical Consult Before Scheduling Social [...] often do you attend chur ch or confucianism services? 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 Topic: Symptomatic Care >> October 16, 2024 10:58 AM Nae Santa wrote: Has this patient seen any provider (current or former) at the requested clinic in the past? Yes, Select the appropriate age range and symptom Patient has symptoms and is seeking care. Caller Name: Kanika([facility]) Callback Number: [phone] Call Notes: diarrhea x 2 days getting [...] Description 12/15/2024 10:30 AM CDT Office Visit [facility] Internal Medicine Medical [place] [address] [address] Leroy Elizabeth PA-C [address] [place] [address] [place] [address] 01/01/2025 11:30 AM CDT Office Visit [facility] Pulmonology [address] [facility] [place] [address] Bennie Sullivan, BATOOL [address] [place] [address] documented as of this encounter Visit Diagnoses Not on filedocumented in this encounter Additional Health Concerns Assessment Noted Time PHQ-9 Depression Total Score: 1 07/29/19 25 10:21 AM CDT documented as of this encounter Care Teams Director Investment Banking Relationship Specialty Start Date End Date Maura Monzon DO [address] [place] [address] PCP - General Internal Medicine 04/09/19 documented as of this encounter
--- OUTSIDE RECORDS SUMMARY | 2024-11-03 11:28 | XMS_ITS | Encounter Summary ---
Author Organization [facility] Address [address] [place] [address] Care Team Providers Care Delivery Technician Name Role Phone Maura Monzon DO Primary Care Provider [phone] Reason for Visit * Reason Comments Insurance Issues Encounter Details Date Type Department Care Team (Late st Contact Info) Description 03/03/2024 Telephone [facility] Internal Medicine Medical [facility] [address] [address] Maura Monzon, [address] [place] [address] Insurance Issues Social History Tobacco [...] any clubs o r organizations such as anabaptist groups, unions, fraternal or athletic groups, or [...] on file 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 Topic: Patient or Caregiver Communication Request >> Mar 03, 2024 12:48 PM Mariah Funk wrote: Patient or Caregiver requesting that a message be sent to Care Team Caller: Kanika on [facility] Patient/Caregiver Callback Number: [phone] (home) Call Notes: Kanika on phi Insurance needs PCP to contact [employer] to let them know PCP is the one who prescribed labs. Number # [phone] Monzon's is the one that ordered the labs from 06/22/2023. Per insurance. documented in this encounter Plan of Treatment Upcoming Encounters Date Type Department Care Team (Late st Contact Info) Description 12/15/2024 10:30 AM CDT Office Visit [facility] Internal Medicine Medical [place] [address] [address] [address] Leroy Elizabeth PA-C [address] [address] [address] [place] [address] 01/01/2025 11:30 AM CDT Office Visit [facility] Pulmonology [facility] [address] [place] [address] Bennie Sullivan, SPRING MAKER [address] [place] [address] documented as of this encounter Visit Diagnoses Not on filedocumented in this encounter Care Teams Delivery Technician Relationship Specialty Start Date End Date Maura Monzon DO [address] [place] [address] PCP - General Internal Medicine 04/09/19 documented as of this encounter
--- OUTSIDE RECORDS SUMMARY | 2024-11-03 11:28 | XMS_ITS | Clinical Summary ---
Author Organization [facility] Address [address] [place] [address] Care Team Providers Care Produce Department Supervisor Name Role Phone Michael Galvan MD Unavailable Maura Monzon DO Primary Care Provider [phone] Allergies No known active allergies Medications lisinopriL (PRINIVIL,ZESTR IL) 20 mg tablet Take 1 tablet (20 mg total) by mouth daily Active lovastatin (MEVACOR) 20 mg tablet Take 1 tablet (20 mg total) by mouth nightly Active Active Problems Problem Noted Date Diagnosed Date Kidney stone 07/04/2022 Overview (07/04/2022): Added automatically from request for surgery [id number] Surgical History Surgery Date Site/Laterality Comments TONSILLECTOMY/ADENOIDECTOMY [...] on file 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 CERTIFIED LACTATION EDUCATOR Gender Identity Not on file Sexual Orientation [...] 104.3 kg (230 lb) 07/27/2022 1:20 PM CERTIFIED LACTATION EDUCATOR Height 182.9 cm (6') 07/27/2022 1:20 PM CERTIFIED LACTATION EDUCATOR Body Mass Index 31.19 07/27/2022 1:20 PM CERTIFIED LACTATION EDUCATOR Plan of Treatment Health Maintenance Due Date [...] history exists Medical Devices Implanted Type Area Natural Gas Shothole Driller Device Identifier Shelf Expiration Date Model / Serial / Lot [employer] Universa 5fr 28cm Radiopaque Positioner Braid Tether Firm 2 [id number] - [id number] Implanted:Qty: 1 on 08/20/2022 by Michael Galvan MD at [facility] Left: Ureter [employer] 06/01/2025 [id number] / / [id number] [employer] Universa 5fr 28cm Radiopaque Positioner Braid Tether Firm 2 [id number] - [id number] Implanted:Qty: 1 on 08/20/2022 by Michael Galvan MD at [facility] Right: Ureter [employer] 05/28/2025 [id number] / / [id number] Insurance [facility] MEDICARE ADVANTAGE [facility] MEDICARE Address: [address] [address] [place] [address] [facility] MEDICARE HMO Care Teams Produce Department Supervisor Relationship Specialty Start Date End Date Maura Monzon DO [address] [place] [address] PCP - General Internal Medicine 02/27/23 Michael Galvan MD Consulting Physician Urology 08/20/22
--- OUTSIDE RECORDS SUMMARY | 2024-11-03 11:28 | XMS_ITS | Referral Summary ---
Author Organization [facility] Address [address] [place] [address] Care Team Providers Care Activity Assistant Name Role Phone Michael Galvan MD Unavailable Maura Monzon DO Primary Care Provider [phone] Allergies No known active allergies Medications lisinopriL (PRINIVIL,ZESTR [place]) 20 mg tablet Take 1 tablet (20 mg total) by mouth daily Active lovastatin (MEVACOR) 20 mg tablet Take 1 tablet (20 mg total) by mouth nightly Active Active Problems Problem Noted Date Diagnosed Date Kidney stone 07/04/2022 Overview (07/04/2022): Added automatically from request for surgery [id number] Social History Tobacco Use Types Packs/Day Years [...] on file 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 Gender Identity Not on file Sexual [...] 104.3 kg (230 lb) 07/27/2022 1:20 PM PHOTO MANAGER Height 182.9 cm (6') 07/27/2022 1:20 PM PHOTO MANAGER Body Mass Index 31.19 07/27/2022 1:20 PM PHOTO MANAGER Plan of Treatment Not on file Medical Devices Implanted Type Area Field Artillery Cannoneer Device Identifier Shelf Expiration Date Model / Serial / Lot [employer] Universa 5fr 28cm Radiopaque Positioner Braid Tether Firm 2 [id number] - [id number] Implanted:Qty: 1 on 08/20/2022 by Michael Galvan MD at [facility] Left: Ureter [employer] 06/01/2025 [id number] / / [id number] [employer] Universa 5fr 28cm Radiopaque Positioner Braid Tether Firm 2 [id number] - [id number] Implanted:Qty: 1 on 08/20/2022 by Michael Galvan MD at [facility] Right: Ureter [employer] 05/28/2025 [id number] / / [id number] Insurance [facility] MEDICARE ADVANTAGE [employer] MEDICARE HMO Care Teams Activity Assistant Relationship Specialty Start Date End Date Maura Monzon DO [address] [facility] [address] [place] [address] PCP - General Internal Medicine 02/27/23 Michael Galvan MD Consulting Physician Urology 08/20/22
--- OUTSIDE RECORDS SUMMARY | 2024-11-03 11:28 | XMS_ITS | Clinical Summary ---
Author Organization [facility] Address [address] [place] [address] Phone Care Team Providers Care Manager Zone Name Role Phone Maura Monzon Primary Care Provider [phone] Allergies Active Allergy Reactions Criticality Noted Date Comments Sulfa (Sulfonamide Antibiotics) Unknown 03/21 Medications aspirin (ECOTRIN EC) 81 mg Tablet, Delayed Release (E.C.)Indications:Aorti c atherosclerosis,Atheros clerosis of [place] coronary artery of [place] heart without angina pectoris Take 1 Tablet (81 mg) by mouth daily. 024 Active multivitamin with rieplsjw-mjzalkdx-wvyfg n (Centrum Silver) 0.4 mg-300 mcg- 250 [...] 1 Active fluticasone propionate (FLONASE) 50 mcg/spray [place], Suspension nasal inhaler Administer 2 Sprays in [...] 09/15/2024 Transient ischemic attack 09/15/2024 Atherosclerosis of [place] co ronary artery of [place] heart without angina pectoris 06/19/2022 Aortic atherosclerosis 06/19/2022 ULYSSES on CPAP 11/14/2021 Benign hypertension 11/14/2021 Prediabetes 09/30/2020 Hyperlipidemia 04/09/2019 Encounters Date Type Department Care Team Description 11/02/[address] [facility] Internal Medicine [facility] [address] [place] [address] Maura Monzon, Results 11/02/[address] [facility] Internal [facility] [address] [address] Maura Monzon, Needs Orders Written; Needs Orders Written; Clinical Consult Before Scheduling 10/27/2024 11:30 AM CDT Office Visit [facility] [address] [address] Leroy Elizabeth PA-C C. difficile diarrhea (Primary Dx) 10/21/2024 [facility] [address] [address] Maura Monzon, DO Appointment Verification 10/16/2024 [facility] [address] [address] Maura Monzon, DO Clinical Consult Before Scheduling 10/08/2024 [facility] [address] [address] Maura Monzon, DO Clinical Consult Before Scheduling 10/08/2024 External Device Data [facility] Provider, Abstract 10/07/2024 External Device Data [facility] Provider, Abstract 10/07/2024 External Device Data [facility] Provider, Abstract 10/06/2024 External Device Data [facility] Provider, Abstract 09/22/2024 External Device Data [facility] Provider, Abstract 09/22/2024 External Device Data [facility] Provider, Abstract 09/15/2024 10:00 AM CDT Office Visit [facility] [address] [address] Leroy Elizabeth PA-C Moderate dementia without behavioral disturbance, psychotic disturbance, mood disturbance, or anxiety, unspecified dementia type (CMS/HCC) (Primary Dx); Memory loss 09/04/2024 [facility] [address] [address] Maura Monzon, DO Erroneous encounter-disregard 09/01/2024 [facility] [address] [address] Maura Monzon, 08/17/[address] [facility] Internal Medicine Medical [place] [address] [address] Maura Monzon, Needs Orders Written 08/13/[address] [facility] Internal Medicine Medical [place] [address] [address] Maura Monzon, 08/10/[address] [facility] [place] [address] [address] Suraj Valdez MD 08/05/2024 External Device Data [facility] Provider, Abstract from Last 3 Months Immunizations Immunization Administration Dates Next Due (COMIRNATY)(12 YR UP) COVID- 19 VACCINE, MRNA, SPIKE PROTEIN, LNP, ALMAS(PF) 30 MCG/0.3 ML IM SUSP 02/28/2024 (PREVNAR 13)(6 WKS UP) PNEUM OCOCCAL CONJUGATE (PCV13) 0.5 ML, IM 06/19/2021 (PREVNAR 20)(6 WKS UP) PNEUM OCOCCAL CONJUGATE VACCINE 20-VALENT (PCV20), POLYSACCHARIDE [id number] CONJUGATE, ADJUVANT 0.5 ML (PF) IM 06/19/2022 [...] often do you attend chur ch or lutheran services? 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 Internal Medicine Medical [place] [address] [place] [address] [address] [facility] [address] [facility] [address] [facility] [address] [address] Leroy Elizabeth, PAMarlenaC [address] [address] [place] [address] 01/01/2025 11:30 AM CDT Office Visit [facility] Pulmonology [address], [place] [address] Bennie Sullivan, BATOOL [address] [place] [address] Health Maintenance Due Date Last [...] completed) Colorectal Cancer Screening 05/20/2025 [place] ([place]) Preventative Visit/Annual Wellness Visit 2025 06/20/2023, 06/19/2022, 06/19/2022, Additional history exists Postponed from 05/20/2024 (Therapeutic Plan Prohibits) PNEUMOCOCCAL VACCINE 50+ YEARS Completed 06/19/2022, 06/19/2021 INFLUENZA VACCINE Completed 02/28/2024, , 02/17/2021, Additional history exists Insurance [facility] [id number] RX [employer] Medicare Part B Care Teams Manager Zone Relationship Specialty Start Date End Date Maura Monzon DO [address] [place] [address] PCP - General Internal Medicine 04/09/19
--- OUTSIDE RECORDS SUMMARY | 2024-11-03 11:28 | XMS_ITS | Encounter Summary ---
Author Organization [facility] Address [address] [place] [address] Care Team Providers Care Cushion Worker Name Role Phone Maura Monzon DO Primary Care Provider [phone] Reason for Visit * Reason Comments Needs Orders Written Needs Orders Written Clinical Consult Before Scheduling Encounter Details Date Type Department Care Team (Late st Contact Info) Description 11/02/2024 Telephone [facility] Internal Medicine Medical [facility] [address] [place] [address] Maura Monzon, [address] [facility] [facility] [address] [place] [address] Needs Orders Written; Needs Orders [...] often do you attend chur ch or rastafari services? 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 Topic: Symptomatic Care >> Nov 03, 2024 8:36 AM Jim Perez wrote: Has this patient seen any provider (current or former) at the requested clinic in the past? Yes, Select the appropriate age range and symptom Patient has symptoms and is seeking care. Caller Name: Kanika - on PHI Callback Number: [phone] Call Notes: Patient has been having diarrhea [...] - 11/02/2024 4:28 PM CDT German with [facility] calling to report critical results. Cdiff is positive. Will also fax results * Telephone Encounter - Elyssa Mars - 11/02/2024 3:10 PM CDT Spoke with agent, updated fax number provided. Lab order faxed to [phone] and [phone] * Telephone Encounter - Clair Ball - 11/02/2024 3:09 PM CDT Copied from [facility] #[id number]. Topic: Patient or Caregiver Communication Request >> Nov 02, 2024 3:06 PM Clair Reno wrote: Patient or Caregiver requesting that a message be sent to Care Team Caller: Ariana([facility]) Patient/Caregiver Callback Number: [phone] Call Notes: Ariana stated that patient Chapincito Howard is at front office representative of the hospital they still haven't received the order she wants to make sure the office has the correct fax [phone]. Ariana would like to have a call [...] - 11/02/2024 9:11 AM CDT Copied from [facility] #[id number]. Topic: CPA Information Request - Order or Referral Request >> Nov 02, 2024 9:09 AM Jessica Walton wrote: Caller Name: Chapincito Howard Patient/Caregiver Callback Number: [phone] Call Notes: [phone] stnaton ill need a order to do [...] Description 12/15/2024 10:30 AM CDT Office Visit [facility] Internal Medicine Medical [place] [facility] [address] [address] Leroy Elizabeth PA-C [address] [facility] [address] [place] [address] 01/01/2025 11:30 AM CDT Office Visit [facility] Pulmonology [facility] [address] [place] [address] Bennie Sullivan, [facility] [address] [place] [address] Scheduled Orders Name Type Priority [...] documented as of this encounter Care Teams Cushion Worker Relationship Specialty Start Date End Date Maura Monzon DO [address] [facility] [facility] [address] [place] [address] PCP - General Internal Medicine 04/09/19 documented as of this encounter
--- OUTSIDE RECORDS SUMMARY | 2024-11-03 11:28 | XMS_ITS | Encounter Summary ---
Author Organization [facility] Address [address] [place] [address] Care Team Providers Care Associate Merchandise Planner Name Role Phone Maura Monzon DO Primary Care Provider [phone] Reason for Visit * Reason Comments Provider Call Encounter Details Date Type Department Care Team (Late st Contact Info) Description 10/21/[address] [facility] Internal Medicine Medical [facility] [address] [address] Maura Monzon, [address] [facility] [address] [place] [address] Provider Call Social History Tobacco [...] often do you attend chur ch or shinto services? 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 Notified practice advisor who will notify the pt once the issue is resolved. * Telephone Encounter - Melissa Qiu - 10/21/2023 1:20 PM CDT Copied from [facility] #[id number]. Topic: Yelvyrrq-Ss-Ljgudfgp Call >> Oct 21, 2023 1:16 PM Melissa Downey wrote: Caller is requesting to speak with Clinical Care Team. Caller Name: KIRSTY Champagne Office Callback Number: [phone] Clinician Type: Healthcare Professional Call Notes: Calling [...] [facility] Internal Medicine Medical [place] [address] [address] [address] Leroy Elizabeth, ESPERANZA [address] [place] [address] 01/01/2025 11:30 AM CDT Office Visit [facility] Pulmonology [facility] [address] [place] [address] Bennie Sullivan, [facility] [address] [facility] [address] [place] [address] documented as of this encounter Visit Diagnoses Not on filedocumented in this encounter Care Teams Associate Merchandise Planner Relationship Specialty Start Date End Date Maura Monzon DO [address] [facility] [address] [place] [address] PCP - General Internal Medicine 04/09/19 documented as of this encounter
--- OUTSIDE RECORDS SUMMARY | 2024-11-03 11:28 | XMS_ITS | Clinical Summary ---
Author Organization [facility] Address [address] [place] [address] Care Team Providers Care Collar Tailor Name Role Phone Unavailable Primary Care Provider Unavailabl e Source Comments [facility],non-owned Affiliates and Associated Physician Practices is amultiple site organization consisting of ambulatory clinics and hospital sitesin [place], [place], [place] and [place]. This disclosure is being madepursuant to the Care Everywhere program and may not contain all information available regarding this patient. 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
--- OUTSIDE RECORDS SUMMARY | 2024-11-03 11:28 | XMS_ITS | Encounter Summary ---
Author Organization [facility] Address [address] [place] [address] Care Team Providers Care Hand Potter Name Role Phone Unavailable Primary Care Provider Unavailabl e Encounter Details Date Type Department Care Team (Late st Contact Info) Description 10/30/2023 Lab Requisition [facility] - DermPath Lab [address] [place] [address] Shawn Adkins MD [facility] DERMATOLOGY [address] [place] [address] Neoplasm of uncertain behavior of skin Social History Tobacco Use Types Packs/Day Years Used Date Smoking Tobacco: Never Assessed Sex and Gender Information Value Date Recorded Sex Assigned at Not on file 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 Gender Identity Not on file Sexual Orientation Not on file documented as of this encounter Plan of Treatment Not on file documented as of this encounter Procedures Procedure Name Priority Date/Time Associated Diagnosis Comments DERMATOPATHOLOGY Routine 10/30/2023 12:0 0 AM CDT Neoplasm of uncertain behavior of skin documented in this encounter Results * DERMATOPATHOLOGY (10/30/2023 12:00 AM CDT) Case Report Dermatopathology Report Case: [id number] Authorizing Provider: Shawn Adkins MD Collected: 10/30/2023 12:00 AM Ordering Location: [facility] - Received: 10/31/2023 04:29 PM DermPath Lab Pathologist: Lindsay Leblanc MD Specimen: Skin, right scientologist 06/17/202 4 4:31 PM CDT DERMATOPATHOLOGY LABORATORY Final Diagnosis Specimen A. 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 The specimen consists of a shave biopsy measuring 7x6x1 mm. Jar 0. 4 4:31 PM CDT DERMATOPATHOLOGY LABORATORY Microscopic Description Specimen A. SKIN, right scientologist: The epidermis shows parakeratosis, full thickness disorderly [...] determined by the Dermatopathology Laboratory at [facility], directed by Dr. Justin Kiran. These tests need not be, and therefore are not, approved by the [place] Food and Drug Administration. The tests are used for clinical purposes. Billing Codes Specimen Charges Stain Charges 81079 1 4 4:31 PM CDT DERMATOPATHOLOGY LABORATORY Embedded Images 4 4:31 PM CDT DERMATOPATHOLOGY LABORATORY Pathology/Cytolog y TISSUE SPECIMEN FROM SKIN / Unknown 10/30/2023 10/31/2023 4:29 PM CDT us Shawn Adkins MD LAB - PATHOLOGY/CYTOLOGY JAMIL BILLS Final Result DERMATOPATHOLOGY LABORATORY [facility] - Department of Dermatology [address] [phone] documented in this encounter Visit Diagnoses Diagnosis Neoplasm of uncertain behavior of skin documented in this encounter
--- OUTSIDE RECORDS SUMMARY | 2024-11-03 11:28 | XMS_ITS | Encounter Summary ---
Author Organization [facility] Address [address] [place] [address] Care Team Providers Care Siebel Architect Name Role Phone Maura Monzon Primary Care Provider [phone] Reason for Visit * Reason Comments Hospital Follow Up Encounter Details Date Type Department Care Team (Late st Contact Info) Description 10/27/2024 11:30 AM CDT Office Visit [facility] Internal Medicine Medical [place] [address] [address] [place] [address] Leroy Elizabeth PA-C [address] [place] [address] [address] [place] [address] C. difficile diarrhea (Primary Dx) [...] often do you attend chur ch or presybeterian services? 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 * Clostridioides difficile colitis (Spanish) documented in this encounter Progress Notes * Leroy Elizabeth PA-C - 10/27/2024 11:12 AM CDT [facility] Internal Medicine Outpatient Progress Note Chief [...] CPAP G47.33 Benign hypertension I10 Atherosclerosis of [place] coronary artery of [place] heart without angina pectoris I25.10 Aortic atherosclerosis I70.0 Urolithiasis N20.9 Syncope and collapse R55 Transient ischemic attack G45.9 Moderate dementia without behavioral disturbance, psychotic disturbance, mood disturbance, or anxiety (CMS/[facility]) F03.B0 C. difficile diarrhea A04.72 Current Outpatient [...] mouth daily. 100 Tablet 3 multivitamin with uxaebctp-mktaaenl-iatjvf (Centrum Silver) 0.4 mg-300 mcg- 250 mcg [...] orders - fluticasone propionate (FLONASE) 50 mcg/spray [place], Suspension nasal inhaler; Administer 2 Sprays in [...] Description 12/15/2024 10:30 AM CDT Office Visit [facility] Internal Medicine Medical [facility] [address] [address] Leroy Elizabeth PA-C [address] [facility] [address] [place] [address] 01/01/2025 11:30 AM CDT Office Visit [facility] Pulmonology [facility] [address] [place] [address] Bennie Sullivan, [facility] [address] [place] [address] documented as of this encounter Visit Diagnoses Diagnosis C. difficile diarrhea- Primary Intestinal infection due to clostridium difficile documented in this encounter Additional Health Concerns Assessment Noted Time PHQ-9 Depression Total Score: 1 07/29/19 25 10:21 AM CDT documented as of this encounter Care Teams Siebel Architect Relationship Specialty Start Date End Date Maura Monzon DO [address] [facility] [address] [place] [address] PCP - General Internal Medicine 04/09/19 documented as of this encounter
--- OUTSIDE RECORDS SUMMARY | 2024-11-03 11:28 | XMS_ITS | Encounter Summary ---
Author Organization [facility] Address [address] [place] [address] Care Team Providers Care Professor Sculpture Name Role Phone Maura Monzon DO Primary Care Provider [phone] Reason for Visit * Reason Comments Question Encounter Details Date Type Department Care Team ([facility] st Contact Info) Description 10/29/2023 Telephone [facility] Internal Medicine Medical [facility] [address] [address] Maura Monzon, [address] [place] [address] Question Social History Tobacco Use [...] often do you attend chur ch or latter-day services? 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 However after patient had labs done ordered 06/20/[address] Monzon they were billed for labs as out of network, informing him [facility] is fact out of network with his [employer] insurance. Spouse is asking for letter to be faxed to [facility] that oupatient labs ordered 06/20/[address] Monzon. Fax letter to [phone] with retroactive claim number [id number] on letter. Letter written. In Dr. Monzon to be signed basket. Please route back to me when signed, and I will fax. Also advised Ariana we did not receive results from 06/20/23 labs that were completed. Ariana will contact lab and ask them to send results to us. * Telephone Encounter - Kim Rankin PCT - 10/29/2023 1:23 PM CDT Copied from [facility] #[id number]. Topic: Patient or Caregiver Communication Request >> Oct 29, 2023 1:20 PM Kim Thomas wrote: Patient or Caregiver requesting advice Caller: on [facility] Patient/Caregiver Callback Number: [phone] (home) Call Notes: states that they need a referral to their insurance for lab. Stating that the dr ordered the lab work in June. Please fax to [phone]. Please advise. This is all the details that she gave me. Please advise. Here is the retro claim # [id number] documented in this encounter Plan of Treatment Upcoming Encounters Date Type Department Care Team (Late st Contact Info) Description 12/15/2024 10:30 AM CDT Office Visit [facility] Internal Medicine Medical [address] [place] [address] Leroy Elizabeth PA-C [address] [place] [address] [place] [address] 01/01/2025 11:30 AM CDT Office Visit [facility] Pulmonology [address] [place] [address] Bennie Sullivan, COLOR SPRAYER [address] [place] [address] [address], [place] [address] documented as of this encounter Visit Diagnoses Not on filedocumented in this encounter Care Teams Professor Sculpture Relationship Specialty Start Date End Date Maura Monzon DO [address] [place] [address] PCP - General Internal Medicine 04/09/19 documented as of this encounter
--- OUTSIDE RECORDS SUMMARY | 2024-11-03 11:28 | XMS_ITS | Encounter Summary ---
Author Organization [facility] Address [address] [place] [address] Care Team Providers Care Squash Centre Manager Name Role Phone Maura Monzon DO Primary Care Provider [phone] Reason for Visit * Reason Comments Provider Call Encounter Details Date Type Department Care Team (Late st Contact Info) Description 08/28/2023 Telephone [facility] Internal Medicine Medical 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 Glez Office @ [phone] * Telephone Encounter - Jovi Claire - 08/28/2023 1:31 PM CDT Copied from [facility] #[id number]. Topic: Sfjopafl-Ib-Pjauqwba Call >> Aug 28, 2023 1:30 PM Jovi Downey wrote: Caller is requesting to speak with Clinical Care Team. Caller Name: Mahi Joseph office Callback Number: [phone] Clinician Type: Healthcare Professional Call Notes:Mahi Joseph office is calling in to see if paperwork was faxed over to [employer] Is this addressing an immediate patient care need? Yes documented in this encounter Plan of Treatment Upcoming Encounters Date Type Department Care Team (Late st Contact Info) Description 12/15/2024 10:30 AM CDT Office Visit [facility] Internal Medicine Medical [place] [address] [address] [address] Leroy Elizabeth PA-C [address] [place] [address] 01/01/2025 11:30 AM CDT Office Visit [facility] Pulmonology [facility] [address] [place] [address] Bennie Sullivan, [place] [address] [place] [address] documented as of this encounter Visit Diagnoses Not on filedocumented in this encounter Care Teams Squash Centre Manager Relationship Specialty Start Date End Date Maura Monzon DO [address] [facility] [address] [place] [address] PCP - General Internal Medicine 04/09/19 documented as of this encounter
[2024-11-03] MEDS: SODIUM CHLORIDE 0.9% IV 1,000 ML 75 ML IV CONT (12:52)
[2024-11-03] MEDS: VANCOMYCIN HCL 125 MG ORAL CAPSULE 250 MG PO ×3 (12:52→21:25)
--- NOTE | 2024-11-03 12:58 | PC.NURSE ---
74 yo male admitted to Room 207 from ER. Patient brought up in wheel chair and taken to room. Patient alert and able to answer questions. Cooperative with care. Denies pain, sob, edema. No edema observed. Patient oriented to room and floor routines. Patient stated understanding. Call light and belongings within reach.
[2024-11-03] MEDS: ASPIRIN 81 MG ENTERIC TABLET PO (16:36)
[2024-11-03] MEDS: carvediloL 6.25 MG TABLET PO (21:25)
[2024-11-03] MEDS: DONEPEZIL HCL 5 MG TABLET PO (21:25)
[2024-11-04] VITALS: BP 126/64; PULSE 76; RESP 16; TEMP 36.6; O2SAT 96
[2024-11-04] MEDS: SODIUM CHLORIDE 0.9% IV 1,000 ML 75 ML IV CONT (01:39)
[2024-11-04 05:33] LABS: Basophils Absolute Auto 0.03 K/mm3 (0.00-0.10); Basophils Percent Auto 0.3 % (0.0-1.0); Eosinophils Absolute Auto 0.17 K/mm3 (0.02-0.50); Eosinophils Percent Auto 1.8 % (1.0-6.0); Hematocrit 34.7 % (37.0-46.0); Hemoglobin 11.3 g/dL (12.4-15.3); Immature Granulocyte Absolute 0.03 K/mm3 (0.00-0.00); Immature Granulocyte Percent A 0.3 % (0.0-0.0); Lymphocytes Absolute Auto 2.53 K/mm3 (1.10-4.50); Lymphocytes Percent Auto 26.1 % (18.0-42.0); Mean Corpuscular HGB Conc 32.6 g/dL (32-36); Mean Corpuscular Hemoglobin 30.5 pg (27.0-31.0); Mean Corpuscular Volume 93.8 fL (78.0-102.0); Mean Platelet Volume 9.6 fl (8.7-11.0); Monocytes Absolute Auto 0.76 K/mm3 (0.10-0.90); Monocytes Percent Auto 7.9 % (2.0-11.0); Neutrophils Absolute Auto 6.16 K/mm3 (1.70-7.20); Neutrophils Percent Auto 63.6 % (50.0-70.0); Platelet Count Result 200 K/mm3 (150-420); Red Cell Distribution Width 12.4 % (11.6-14.4); White Blood Count 9.7 K/mm3 (4.8-10.8)
[2024-11-04 05:59] LABS: Alanine Aminotransferase 13 U/L (6-50); Albumin Level 3.3 g/dL (3.5-5.1); Alkaline Phosphatase 73 U/L (38-126); Anion Gap 5 mmol/L (4-12); Aspartate Amino Transferase 22 U/L (17-59); Bilirubin,Total 0.9 mg/dL (0.2-1.3); Blood Urea Nitrogen 12 mg/dL (9-20); Calcium 8.2 mg/dL (8.4-10.2); Carbon Dioxide 24 mmol/L (22-30); Chloride 109 mmol/L (98-107); Estimated CRCL calculation 75 ml/min; Estimated Glomerular Filt Rate > 60; Glucose 98 mg/dL (65-110); Osmolality Calculated 285 mOsm/kg (285-295); Potassium 3.7 mmol/L (3.4-5.0); Sodium 138 mmol/L (137-145); Total Protein 5.9 g/dL (6.3-8.2)
[2024-11-04 07:41] VITALS: BP 118/64; PULSE 84; RESP 18; TEMP 36.6; O2SAT 96
[2024-11-04 08:44] VITALS: PULSE 78
[2024-11-04] MEDS: ASPIRIN 81 MG ENTERIC TABLET PO (08:44)
[2024-11-04] MEDS: carvediloL 6.25 MG TABLET PO (08:44)
[2024-11-04] MEDS: MULTIVITAMINS THERAPEUTIC TAB (*BKC) 1 TABLET PO (08:44)
[2024-11-04] MEDS: VANCOMYCIN HCL 125 MG ORAL CAPSULE 250 MG PO (08:45)
--- NOTE | 2024-11-04 10:32 | P.SS_ITS ---
Same Day Admit/Disch: HPI History of Present Illness Chief complaint: C DIFF DIARRHEA/dizziness Narrative: Chapincito Howard is a 74 year old male who presented to the emergency department from his primary care physician due to a positive C diff with complaints of dizziness, poor appetite and diarrhea. patient had been previously treated 3 weeks prior on 250 of oral vancomycin every 6 hours for 10 days at which time patient reported that his stool did improve and his diarrhea went away however returned at which time he went and saw his primary care physician. Patient reports he has had multiple episodes of diarrhea, dizziness and poor appetite denied any chest pain, shortness a breath, nausea, vomiting, fever or abdominal pain. patient does report he has a history hypertension as well as dementia and he had been taking his blood pressure medication was found to have soft blood pressure and emergency department due to dehydration likely cause of patient's dizziness. patient's labs otherwise unremarkable electrolytes stable patient was admitted to the medical unit for hydration and they resumed him on his oral vancomycin. [facility] Past Medical History Medical History (Updated 11/04/24 @ 10:43 by Mahi Cabrera, ULICES) C. difficile diarrhea CAD (coronary artery disease) HTN (hypertension) Hypercholesterolemia Family History Family History Other Cerebrovascular accident Diabetes mellitus Family history of malignant neoplasm Social History Social History Smoking status: Never smoker Second hand tobacco smoke exposure: No Alcohol intake: never Substance use: never Substance use type: does not use Do You Feel Safe in your Home?: Yes Lack of Transportation: No Lack of Food: Never True Current Housing: I Have Housing Concerned About Future Housing: No Difficulty Paying Gas/Electric Bills: No Difficulty Paying for Meds: No Currently Unemployed: No Education: High School Diploma/GED Difficulty w/ Childcare or Family Care: No Gender identity (if verbalized by the patient): Male Spiritual care concerns: No Same Day Admit/Disch: Med Pre-admit Medications Home Medications ?Medication ?Instructions ?Recorded ?Confirmed ?Type lisinopril 10 mg tablet 10 mg PO DAILY 06/20/23 11/03/24 History aspirin 81 mg tablet,delayed 81 mg PO BID 08/02/23 11/03/24 History release carvedilol 6.25 mg tablet 6.25 mg PO Q12H 08/02/23 11/03/24 History donepezil 5 mg tablet (Aricept) 5 mg PO HS 11/03/24 11/03/24 History lovastatin 20 mg tablet,extended 20 mg PO HS 11/03/24 11/03/24 History release 24 hr (Altoprev) lutein 20 mg capsule 20 mg PO DAILY 11/03/24 11/03/24 History multivitamin (Daily Multi-Vitamin 1 tablet PO DAILY 11/03/24 11/03/24 History tablet) Review of Systems Review of Systems All systems reviewed & are unremarkable except as noted in HPI and below Exam Const: General: comfortable and no acute distress HENMT: Ears: TM's normal bilaterally Face/Nose/Sinus: Normal nares present Mouth: Yes moist mucous membranes Eyes: General: appearance normal, both eyes and all related structures Sclera: sclerae normal Pupils: Equal, round and reactive pupils present Neck: Neck: supple and no JVD Resp: Effort & Inspection: normal respiratory effort Auscultation: clear to auscultation bilaterally Cardio: Rate: regular rate Rhythm: regular rhythm GI: Auscultation: normal bowel sounds Skin: General skin exam: normal color and no rashes or lesions noted Neuro: General: gait normal Speech: normal speech Motor exam (neuro): 5/5 motor strength present throughout Extrem: General: normal to inspection Psych: Mental Status: mental status grossly normal Affect: normal affect DS: Data Data Completed and Pending Labs on day of discharge: Labs from last 24 hours 11/04/24 05:12 WBC 9.7 RBC 3.70 L Hgb 11.3 L Hct 34.7 L MCV 93.8 MCH 30.5 MCHC 32.6 RDW 12.4 Plt Count 200 MPV 9.6 Immature Gran % (Auto) 0.3 H Neut % (Auto) 63.6 Lymph % (Auto) 26.1 Bradley % (Auto) 7.9 Eos % (Auto) 1.8 Baso % (Auto) 0.3 Lymph # (Auto) 2.53 Bradley # (Auto) 0.76 Eos # (Auto) 0.17 Baso # (Auto) 0.03 Abs Immat Gran (auto) 0.03 H Absolute Neuts (auto) 6.16 Absolute Nucleated RBC 0.00 Nucleated RBC % 0.0 Sodium 138 Potassium 3.7 Chloride 109 H Carbon Dioxide 24 Anion Gap 5 BUN 12 Creatinine 0.90 Estim Creat Clear Calc 75 Estimated GFR > 60 Glucose 98 Calculated Osmolality 285 Calcium 8.2 L Total Bilirubin 0.9 AST 22 ALT 13 Alkaline Phosphatase 73 Total Protein 5.9 L Albumin 3.3 L DS: Summary Hospital Course Reason for hospitalization: diarrhea due to C diff infection/ dizziness/ hypotension Hospital Course: Chapincito Howard is a 74 year old male who presented to the emergency department from his primary care physician due to a positive C diff with complaints of dizziness, poor appetite and diarrhea. patient had been previously treated 3 weeks prior on 250 of oral vancomycin every 6 hours for 10 days at which time patient reported that his stool did improve and his diarrhea went away however returned at which time he went and saw his primary care physician. Patient reports he has had multiple episodes of diarrhea, dizziness and poor appetite denied any chest pain, shortness a breath, nausea, vomiting, fever or abdominal pain. patient does report he has a history hypertension as well as dementia and he had been taking his blood pressure medication was found to have soft blood pressure and emergency department due to dehydration likely cause of patient's dizziness. patient's labs otherwise unremarkable electrolytes stable patient was admitted to the medical unit for hydration and they resumed him on his oral vancomycin. Patient admitted to the medical unit and started on IV fluids for his dehydration at which time he had been resumed on vancomycin 250 mg q.i.d. after being found to be C diff positive. Patient was initially hypotensive on admission which has improved overnight with IV hydration recommended he resume his carvedilol however continue to hold his lisinopril until diarrhea and BP improve. patient is seen following day the no acute distress reports some resolution of episodes of diarrhea denied further dizziness with good appetite and no abdominal pain electrolytes stable as well as vitals he was in no acute distress with no further complaints. due to recurrence of his C diff I attempted to order Dificid however called his pharmacy for coverage and would be over a 1000 dollars so patient was discharged home on oral vancomycin pulse taper dose. patient was also instructed to hold his lisinopril until blood pressure improves and monitor at home and continue with oral hydration. patient ambulatory on own was discharged home with spouse. Status at Discharge Functional status at discharge: independent ambulation Overall status at discharge: patient is progressing back to baseline Time Spent with Patient Time attestation: Total time spent providing and/or coordinating discharge services: Time spent: Greater than 30 minutes DS: Admitting Diagnosis Discharge Date 11/04/2024 Admitting Diagnosis diarrhea secondary to C diff/ dizziness/ hypotension DS: Discharge Diagnosis Discharge Diagnosis (1) C. difficile diarrhea: Code(s): A04.72 - Enterocolitis due to Clostridium difficile, not specified as recurrent Status: Acute (2) Acute dehydration: Code(s): E86.0 - Dehydration Status: Acute (3) HLD (hyperlipidemia): Code(s): E78.5 - Hyperlipidemia, unspecified Status: Acute (4) CAD (coronary artery disease): Code(s): I25.10 - Atherosclerotic heart disease of [place] coronary artery without angina pectoris Status: Acute (5) HTN (hypertension): Code(s): I10 - Essential (primary) hypertension Status: Acute (6) Hypotension: Code(s): I95.9 - Hypotension, unspecified Status: Acute Discharge Plan Discharge Attending physician on discharge: Marta Laguerre Consulting providers: Mahi Cabrera Discharging Clinician: Mahi Cabrera Anticipated Discharge Date/Time: 11/04/24 10:07 Patient Disposition: Home Activity: may shower and as tolerated Diet: as tolerated Discharge Instructions: 1). C-diff: * I have prescribed oral vancomycin please complete as indicated even if feeling better this will be a long taper dose due to recurrence of C diff * Encourage oral hydration to improve dehydration from diarrhea * Please do not use antidiarrheals * I would continue to hold your blood pressure medication if still experience multiple episodes of diarrhea and low blood pressures may resume when diarrhea has improved and blood pressure has improved. Monitor blood pressure at home Patient Instructions: Antibiotic Form, C. Diff (Clostridioides Difficile) Infection (DC) Patient Language: Urdu Stand Alone Forms: General Discharge Information Follow-up/Referrals: Nicolás,Maura [Other] - 3 Weeks Discharge Medications: New vancomycin [Vancocin] 125 mg capsule 125 mg PO DIRECTED Qty: 87 0RF Rx Instructions: take 125 mg 4 times per day for 10 days; 2 times per day for 7 days; once daily for 7 days; once every 2-3 days for 2-8 weeks Continued carvedilol 6.25 mg tablet 6.25 mg PO Q12H aspirin 81 mg Tablet,Delayed Release (Dr/Ec) 81 mg PO BID Altoprev 20 mg tablet extended release 24 hr 20 mg PO HS donepezil [Aricept] 5 mg tablet 5 mg PO HS lutein 20 mg capsule 20 mg PO DAILY Rx Instructions: give with meal/snack multivitamin [Daily Multi-Vitamin] Tablet 1 tablet PO DAILY Held lisinopril 10 mg Tablet 10 mg PO DAILY Hold Instructions: Resume on 11/06/24. Until Diarrhea and blood pressure improve Date of admission: 11/03/24 11:41 Primary Care Provider: NicolásMaura Admitting Provider: Marta Laguerre Attending physician on admission: Marta Laguerre Condition: Stable Quality VTE Prophylaxis VTE prophylaxis: mechanical ordered -Patient's previous records reviewed on admission -ER notes reviewed in detail on admission -discussed all findings and current treatment plan with patient/Family/POA -Consultations reviewed for recommendations -Patient's disposition for safe discharge discussed with immigration case worker Dictation performed by [employer] direct speech recognition software, therefore automation tester variants and typographical errors may occur. Hospitalist MIPS Advance Care Plan I have confirmed that the patient's Advanced Care Plan is present, code status is documented, or surrogate decision maker is listed in patient medical record.: Yes Medication Reconciliation I have utilized all available resources to obtain, update and review the patients current medications (includes all prescriptions, OTC, herbals, cannabis, and nutritional supplements).: Yes The patient is not eligible for med reconciliation; the patient is in a emergent medical situation where delaying treatment would jeopardize the patients health.: No Heart Failure (Exclusion) Patient has history of Heart Transplant or Left Ventricular Assistive Device?: No IF YES, STOP HERE Heart Failure (Qualifier) Patient has current or prior documentation of LVEF less than or equal to 40%, or mod/servere depressed LVSF?: No IF NO, STOP HERE
--- NOTE | 2024-11-04 11:30 | PC.NURSE ---
1110 patient ready for dc. instructions went over. tapering dose of vancomycin went over. hold lispinoril til 6-20 and loose stools stop. encouraged to call dr for f/u appointment
--- NOTE | 2024-11-05 09:16 | PC.NURSE ---
Spoke with Chapincito for discharge callback. He has no questions or concerns, he understood all education and information with discharge instructions. He informs he has a follow up with his PCP on Saturday.
== END 2024-11-04 11:10 | disposition home or self-care (01) ==
LOC: CHSED 11:41 → CHS2ND 11:49
PROVIDERS: Admitting Provider Internal Medicine; Emergency Provider Emergency Medicine; Visit Provider Internal Medicine
DX: A04.72 Enterocolitis due to Clostridium difficile, not specified as recurrent (principal); E86.0 Dehydration; I95.9 Hypotension, unspecified; E78.00 Pure hypercholesterolemia, unspecified; I25.10 Atherosclerotic heart disease of native coronary artery without angina pectoris; I10 Essential (primary) hypertension; F03.90 Unspecified dementia, unspecified severity, without behavioral disturbance, psychotic disturbance, mood disturbance, and anxiety; Z79.82 Long term (current) use of aspirin; Z79.899 Other long term (current) drug therapy; Z88.2 Allergy status to sulfonamides
CPT/HCPCS: 36415; 80053; 83605; 83690; 83735; 85025; 85027; 96361; 96374; 99285; A9270; G0378; J7030

== ENCOUNTER 2025-01-01 12:44 | Outpatient (CLI) | payer MEDICARE, SELFPAY ==
--- OUTSIDE RECORDS SUMMARY | 2025-01-01 12:52 | XMS_ITS | Encounter Summary ---
Author Organization [facility] Address [address] [place] [address] Care Team Providers Care Paper Cone Drying Machine Operator Name Role Phone Maura Monzon DO Primary Care Provider [phone] Reason for Visit * Reason Comments Question Encounter Details Date Type Department Care Team (Late st Contact Info) Description 10/29/2023 Telephone [facility] Internal Medicine Medical [place] [facility] 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 However after patient had labs done ordered 06/20/[address] Monzon they were billed for labs as out of network, informing him [facility] is fact out of network with his [employer] insurance. Spouse is asking for letter to be faxed to [employer] that oupatient labs ordered 06/20/[address] Monzon. Fax letter to [phone] with retroactive claim number [id number] on letter. Letter written. In Dr. Monzon to be signed basket. Please route back to me when signed, and I will fax. Also advised Ariana we did not receive results from 06/20/23 labs that were completed. Ariana will contact lab and ask them to send results to us. * Telephone Encounter - Kim Rankin, PCT - 10/29/2023 1:23 PM CDT Copied from [facility] #[id number]. Topic: Patient or Caregiver Communication Request >> Oct 29, 2023 1:20 PM Kim Thomas wrote: Patient or Caregiver requesting advice Caller: on [facility] Patient/Caregiver Callback Number: [phone] (home) Call Notes: states that they need a referral to their insurance for lab. Stating that the dr ordered the lab work in June. Please fax to [phone]. Please advise. This is all the details that she gave me. Please advise. Here is the retro claim # [id number] documented in this encounter Plan of Treatment Upcoming Encounters Date Type Department Care Team (Late st Contact Info) Description 12/27/2025 10:30 AM CDT Office Visit [facility] Internal Medicine Medical [place] [facility] [address] [address] Maura Monzon, DO [address] [place] [address] documented as of this encounter Visit Diagnoses Not on filedocumented in this encounter Additional Health Concerns Infection Onset Date Last Indicated Resolved Time R/O C. diff 11/04/2024 11/02/2024 11/04/2024 1:18 PM CDT documented as of this encounter Care Teams Paper Cone Drying Machine Operator Relationship Specialty Start Date End Date Maura Monzon DO [address] [facility] [address] [place] [address] PCP - General Internal Medicine 04/09/19 documented as of this encounter
--- OUTSIDE RECORDS SUMMARY | 2025-01-01 12:52 | XMS_ITS | Encounter Summary ---
Author Organization [facility] Address [address] [place] [address] Care Team Providers Care Assistant To The President Name Role Phone Maura Monzon DO Primary Care Provider [phone] Reason for Visit * Reason Comments Needs Orders Written Information Encounter Details Date Type Department Care Team (Late st Contact Info) Description 01/01/2025 Telephone [facility] Internal Medicine Medical [place] [facility] [address] [address] Maura Monzon, [address] [place] [address] Needs Orders Written; Information Social History Tobacco Use Types Packs/Day Years Used Date Smoking Tobacco: Never Smokeless Tobacco: Never Alcohol Use Standard Drinks/Week Comments Not Currently 0 (1 standard drink = 0.6 oz pur e alcohol) Sex and Gender Information Value Date Recorded Sex Assigned at Not on file 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 - 01/01/2025 11:30 AM CDT Called pt and let him know I faxed over his C. Diff stool sample order to the lab he requested. Pt communicated understanding. * Telephone Encounter - Caitlyn Hines - 01/01/2025 9:39 AM CDT Copied from [facility] #[id number]. Topic: CPA Information Request - Appointment/Location Information >> Jan 01, 2025 9:37 AM Caitlyn Cyr wrote: Caller is requesting the following information: Other Wanting a call back when order has been placed for stool sample. Caller Notes (Not Required): Ask if caller would like to also receive a link in [employer] to view the details for the upcoming appointments. Would caller like [employer] message with link to appointment details? No Patient Access Instructions 1. Link appointment in attachment section below. 2. Select Resolve Reason and Click Close CRM. * Telephone Encounter - Cherelle Morillo - 01/01/2025 8:53 AM CDT Copied from [facility] #[id number]. Topic: CPA Information Request - Order or Referral Request >> Jan 01, 2025 8:50 AM Cherelle Walton wrote: Caller Name: jie on phi Patient/Caregiver Callback Number: [phone] Call Notes: orders to [facility] in [facility] Caller is requesting: New Non Lab Order Has the patient been seen for this issue? Yes Order: stool sample order Reason for Request: to test for cdiff at local hospital Preferred Facility/Location: fax# [phone] [facility] lab documented in this encounter Plan of Treatment Upcoming Encounters Date Type Department Care Team (Late st Contact Info) Description 12/27/2025 10:30 AM CDT Office Visit [facility] Internal Medicine Medical [place] [address] [address] Maura Monzon, DO [address] [place] [address] documented as of this encounter Visit Diagnoses Not on filedocumented in this encounter Care Teams Assistant To The President Relationship Specialty Start Date End Date Maura Monzon DO [address] [place] [address] PCP - General Internal Medicine 04/09/19 documented as of this encounter
--- OUTSIDE RECORDS SUMMARY | 2025-01-01 12:52 | XMS_ITS | Encounter Summary ---
Author Organization [facility] Address [address] [place] [address] Care Team Providers Care Conveyor Console Operator Name Role Phone Unavailable Primary Care Provider Unavailabl e Encounter Details Date Type Department Care Team (Late st Contact Info) Description 10/30/2023 Lab Requisition [facility] - DermPath Lab [address] [place] [address] Shawn Adkins MD [facility] DERMATOLOGY [address] [place] [phone] Neoplasm of uncertain behavior of skin Social History Tobacco Use Types Packs/Day Years Used Date Smoking Tobacco: Never Assessed Sex and Gender Information Value Date Recorded Sex Assigned at Not on file 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 Gender Identity Not on file Sexual Orientation Not on file documented as of this encounter Plan of Treatment Not on file documented as of this encounter Procedures Procedure Name Priority Date/Time Associated Diagnosis Comments DERMATOPATHOLOGY Routine 10/30/2023 12:0 0 AM CDT Neoplasm of uncertain behavior of skin documented in this encounter Results * DERMATOPATHOLOGY (10/30/2023 12:00 AM CDT) Case Report Dermatopathology Report Case: [id number] Authorizing Provider: Shawn Adkins MD Collected: 10/30/2023 12:00 AM Ordering Location: [facility] - Received: 10/31/2023 04:29 PM DermPath Lab Pathologist: Lindsay Leblanc MD Specimen: Skin, right adventist 06/17/202 4 4:31 PM CDT DERMATOPATHOLOGY LABORATORY Final Diagnosis Specimen A. 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 The specimen consists of a shave biopsy measuring 7x6x1 mm. Jar 0. 4 4:31 PM CDT DERMATOPATHOLOGY LABORATORY Microscopic Description Specimen A. SKIN, right adventist: The epidermis shows parakeratosis, full thickness disorderly [...] characteristic determined by the Dermatopathology Laboratory at [facility], directed by Dr. Justin Kiran. These tests need not be, and therefore are not, approved by the [place] Food and Drug Administration. The tests are used for clinical purposes. Billing Codes Specimen Charges Stain Charges 09993 1 4 4:31 PM CDT DERMATOPATHOLOGY LABORATORY Embedded Images 4 4:31 PM CDT DERMATOPATHOLOGY LABORATORY Pathology/Cytolog y TISSUE SPECIMEN FROM SKIN / Unknown 10/30/2023 10/31/2023 4:29 PM CDT us Shawn Adkins MD LAB - PATHOLOGY/CYTOLOGY JAMIL BILLS Final Result DERMATOPATHOLOGY LABORATORY [facility] - Department of Dermatology [address], [address] [phone] documented in this encounter Visit Diagnoses Diagnosis Neoplasm of uncertain behavior of skin documented in this encounter
--- OUTSIDE RECORDS SUMMARY | 2025-01-01 12:52 | XMS_ITS | Encounter Summary ---
Author Organization [facility] Address [address] [place] [address] Care Team Providers Care College Sports Assistant Name Role Phone Maura Monzon DO Primary Care Provider [phone] Reason for Visit * Reason Comments Provider Call Encounter Details Date Type Department Care Team (Late st Contact Info) Description 08/28/2023 Telephone [facility] Internal Medicine Medical [facility] [address] [address] Maura Monzon, [address] [place] [address] Provider Call Social History Tobacco Use Types Packs/Day Years Used Date Smoking Tobacco: Never Smokeless Tobacco: Never Alcohol Use Standard Drinks/Week Comments Not Currently 0 (1 standard drink = 0.6 oz pur e alcohol) Sex and Gender Information Value Date Recorded Sex Assigned at Not on file 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 Glez Office @ [phone] * Telephone Encounter - Jovi Claire - 08/28/2023 1:31 PM CDT Copied from [facility] #[id number]. Topic: Hxewksgr-Ei-Bjpqrebu Call >> Aug 28, 2023 1:30 PM Jovi Downey wrote: Caller is requesting to speak with Clinical Care Team. Caller Name: Mahi Joseph office Callback Number: [phone] Clinician Type: Healthcare Professional Call Notes:Mahi Joseph office is calling in to see if paperwork was faxed over to [employer] Is this addressing an immediate patient care need? Yes documented in this encounter Plan of Treatment Upcoming Encounters Date Type Department Care Team (Late st Contact Info) Description 12/27/2025 10:30 AM CDT Office Visit [facility] Internal Medicine Medical [place] [facility] [address] [address] Maura Monzon DO [address] [place] [address] documented as of this encounter Visit Diagnoses Not on filedocumented in this encounter Additional Health Concerns Infection Onset Date Last Indicated Resolved Time R/O C. diff 11/04/2024 11/02/2024 11/04/2024 1:18 PM CDT documented as of this encounter Care Teams College Sports Assistant Relationship Specialty Start Date End Date Maura Monzon DO [address] [place] [address] PCP - General Internal Medicine 04/09/19 documented as of this encounter
--- OUTSIDE RECORDS SUMMARY | 2025-01-01 12:52 | XMS_ITS | Encounter Summary ---
Author Organization [facility] Address [address] [place] [address] Care Team Providers Care Mail Processing Clerk Name Role Phone Maura Monzon Eri HERNANDEZ Primary Care Provider [phone] Reason for Referral * Eval and Treat (Routine) - Open Specialty Diagnoses / Procedures Referred By Dione simon Referred To Contact Infectious Diseases Diagnoses C. difficile diarrhea Procedures [place] OFFICE/OUTPATIENT ESTABLISHED MOD MDM 30 MIN [place] OFFICE/OUTPATIENT NEW MODERATE MDM 45 MINUTES Leroy Elizabeth PA-C [address] [address] [place] [address] Phone: tel: fax: [facility] INFECTIOUS DISEASE [place] [address] [place] [address] Phone: tel: fax: Referral ID Status Reason Start Date Expiration Date Visits Re quested Visits Authorized [id number] Open 12/31/2024 12/31/2025 1 1 Reason for Visit * Reason Comments Diarrhea Encounter Details Date Type Department Care Team (Late st Contact Info) Description 12/31/2024 1:30 PM CDT Office Visit [facility] Internal Medicine Medical [place] [address] [address] Leroy Elizabeth PA-C [address] [address] [place] [address] Recurrent Clostridioides difficile diarrhea (Primary Dx); C. 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 Not on file Not on file Not on file documented as of this encounter Last Filed Vital Signs Vital Sign Reading Time Taken Comments Blood Pressure 110/60 12/31/2024 1:01 PM CDT Pulse 73 12/31/2024 1:01 PM CDT Temperature 37.1 C (98.7 F) 12/31/2024 1:01 PM CDT Respiratory Rate - - Oxygen Saturation 96% 12/31/2024 1:01 PM CDT Inhaled Oxygen Concentration - - Weight 99.1 kg (218 lb 6.4 oz) 12/31/2024 1:01 P M CDT Height 180.3 cm (5' 11) 12/31/2024 1:01 PM CDT Body Mass Index 30.46 12/31/2024 1:01 PM CDT documented in this encounter Patient Instructions * Attachments The following attachments cannot be sent through Care Everywhere. * Clostridioides difficile colitis (Pakistani) documented in this encounter Progress Notes * Leroy Elizabeth PA-C - 12/31/2024 1:28 PM CDT [facility] Internal Medicine Outpatient progress Note Chief Complaint Patient presents with Diarrhea History of Present Illness [place] presents with his for beginnings of what feels to be his second recurrence of C. difficile colitis. Had a sinus infection in September and took Augmentin and developed subsequent diarrhea. He was diagnosed with C. difficile on 10/16 and treated with vancomycin 125 mg 4 times daily for 10 days.He began to advance his diet and then developed diarrhea again and went to [facility] for additional evaluation on 11/02/2024. He was diagnosed with first recurrence of C.difficile and prescribed prolonged course of vancomycin 4 times daily for 10 days, twice daily for 7 days, once daily for 7 days, and then every 3 days for 2-8 weeks. He is not taking it every 3 days, but yesterday afternoon started to have gradually loosening and more frequent stools. For looser stools again this morning and associated fatigue. Denies fever, shortness of breath, chest pain, abdominal pain, hematochezia associated. He can tell C. difficile is starting to return as this is the same exact course he experienced twice before. Has not scheduled with GI for follow-up. He would liketo see infectious disease. Patient Active Problem List Diagnosis Code Hyperlipidemia E78.5 Prediabetes R73.03 ULYSSES on CPAP G47.33 Benign hypertension I10 Atherosclerosis of [place] coronary artery of buck[place] heart without angina pectoris I25.10 Aortic atherosclerosis I70.0 Urolithiasis N20.9 Syncope and collapse R55 Transient ischemic attack G45.9 Moderate dementia without behavioral disturbance, psychotic disturbance, mood disturbance, or anxiety (CMS/HCC) F03.B0 C. difficile diarrhea A04.72 Current Outpatient Medications on File Prior to Visit Medication Sig Dispense Refill vancomycin (VANCOCIN) 125 mg Capsule Take 125 mg by mouth. lactobacillus rhamnosus, GG, (CULTURELLE) 10 billion cell Capsule Take 1 Capsule by mouth daily. 100 Capsule 3 donepeziL (ARICEPT) 10 mg tablet Take 1 [...] mouth daily. 100 Tablet 3 multivitamin with hvfyofcz-ewvfuctl-afvemz (Centrum Silver) 0.4 mg-300 mcg- 250 mcg Tablet per tablet 1 tablet(s), Oral, daily, 30 tablet(s), Tablet(s), 0 lutein 20 mg Tablet 20 mg. aspirin (ECOTRIN EC) 81 mg Tablet, Delayed Release (E.C.) Take 1 Tablet (81 mg) by mouth daily. azelastine (ASTELIN) 137 mcg/actuation nasal spray Administer 2 Sprays in each nostril 2 times daily. (Patient not taking: Reported on 12/31/2024) 30 mL 1 fluticasone propionate (FLONASE) 50 mcg/spray [place], Suspension nasal inhaler Administer 2 Sprays in each nostril daily. (Patient not taking: Reported on 12/31/2024) 48 Gram 3 No current facility-administered medications on file prior to visit. Review of Systems Constitutional: Positive for fatigue. Negative for fever. Respiratory: Negative for shortness of breath. Cardiovascular: Negative for chest pain. Gastrointestinal: Positive for diarrhea. Negative for abdominal pain, blood in stool, nausea and vomiting. Objective: BP 110/60 (BP Location: Right arm, Patient Position (BP): Sitting, BP Cuff Size: Large Adult) Pulse 73 Temp 98.7 ??F (37.1 ??C) (Temporal) Ht 5' 11 (1.803 m) Wt 99.1 kg (218 lb 6.4 oz) SpO2 96% BMI 30.46 kg/m?? Physical Exam Vitals reviewed. Constitutional: General: He is not in acute distress. Appearance: Normal appearance. HENT: Head: Normocephalic and atraumatic. Cardiovascular: Rate and Rhythm: Normal rate and regular rhythm. Heart sounds: No murmur heard. Pulmonary: Effort: Pulmonary effort is normal. No respiratory distress. Breath sounds: Normal breath sounds. No wheezing, rhonchi or rales. Neurological: General: No focal deficit present. Mental Status: He is alert. Psychiatric: Mood and Affect: Mood normal. Behavior: Behavior normal. Thought Content: Thought content normal. Judgment: Judgment normal. Assessment and Plan: Chapincito was seen today for diarrhea. Diagnoses and all orders for this visit: Recurrent Clostridioides difficile diarrhea - C. difficile diagnosed on 10/16 after course of Augmentin for sinusitis - Completed original 10-day course of vancomycin 4 times daily - First recurrence diagnosed on 11/02/2024-prescribed taper of 4 times daily x 10 days, twice daily for 7 days, once daily for 7 days, every 3 days for 2-8 weeks -C. difficile symptoms returning. Recommend Fidaxomicin 200 mg BID x 10 days per UpToDate algorithm -Infectious disease referral - GI referral - Probiotics - Hydrate with at least 64 ounces of water daily C. difficile diarrhea - C. DIFFICILE DETECTION; Future - AMB REFERRAL TO INFECTIOUS DISEASE Assessment & Plan Allen Elizabeth PA-C documented in this encounter Miscellaneous Notes * Patient Instructions - Leroy Elizabeth PA-C - 12/31/2024 1:46 PM CDT Thank you for trusting me with your medical care today! It is always a pleasure to care for you and collaborate with your PCP. Reach out via phone or My [employer] Message if you have questions. Instructions from today's visit: - C. difficile symptoms returning. Recommend Fidaxomicin 200 mg twice daily x 10 days -Infectious disease referral - GI referral - Probiotics - Hydrate with at least 64 ounces of water daily documented in this encounter Plan of Treatment Upcoming Encounters Date Type Department Care Team (Late st Contact Info) Description 12/27/2025 10:30 AM CDT Office Visit [facility] Internal Medicine Medical [facility] [address] [address] Maura Monzon DO [address] [facility] [address] [place] [address] Scheduled Orders Name Type Priority Associated Diagnoses Orde r Schedule C. DIFFICILE DETECTION Microbiology Routine C. difficile diarrhea Expected: 12/31/2024, Expires: 12/31/2025 Scheduled Referrals Name Type Priority Associated Diagnoses Order Schedule AMB REFERRAL TO INFECTIOUS DISEASE Outpatient Referral Routine C. difficile diarrhea Ordered: 12/31/2024 documented as of this encounter Visit Diagnoses Diagnosis Recurrent Clostridioides difficile diarrhea- Primary C. difficile diarrhea Intestinal infection due to clostridium difficile documented in this encounter Care Teams Mail Processing Clerk Relationship Specialty Start Date End Date Maura Monzon DO [address] [place] [address] PCP - General Internal Medicine 04/09/19 documented as of this encounter
--- OUTSIDE RECORDS SUMMARY | 2025-01-01 12:52 | XMS_ITS | Clinical Summary ---
Author Organization [facility] Address [address] [place] [address] Care Team Providers Care Billing Machine Operator Name Role Phone Unavailable Primary Care Provider Unavailabl e Source Comments [facility],non-owned Affiliates and Associated Physician Practices is amultiple site organization consisting of ambulatory clinics and hospital sitesin [place], [place], [place] and [place]. This disclosure is being madepursuant to the Care Everywhere program and may not contain all information available regarding this patient. Last updated 18.[facility] [employer] Social History Tobacco Use Types Packs/Day Years Used Date Smoking Tobacco: Never Assessed Sex and Gender Information Value Date Recorded Sex Assigned at Not on file Legal Sex Male 3:56 PM BENEFITS ADMINISTRATOR Gender Identity Not on file Sexual Orientation [...] - 1-dose 75+ series) 2024 INFLUENZA VACCINE (#1) 2025 HEPATITIS B VACCINE Aged Out No [...] ADV HMO & PPO MEDICARE MEDICARE MEDICARE [facility]
--- OUTSIDE RECORDS SUMMARY | 2025-01-01 12:52 | XMS_ITS | Encounter Summary ---
Author Organization [facility] Address [address] [place] [address] Care Team Providers Care Senior Administrative Support Name Role Phone Maura Monzon DO Primary Care Provider [phone] Reason for Visit * Reason Comments Provider Call Encounter Details Date Type Department Care Team (Late st Contact Info) Description 10/21/2023 Telephone [facility] Internal Medicine Medical [place] A [facility] 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 Topic: [id number]-Tm-[id number] Call >> Oct 21, 2023 1:16 PM Melissa Downey wrote: Caller is requesting to speak with Clinical Care Team. Caller Name: [facility]i [facility] Office Callback Number: [phone] Clinician Type: Healthcare Professional Call Notes: Calling [...] Description 12/27/2025 10:30 AM CDT Office Visit [facility] Internal Medicine Medical [place] [facility] [address] [address] Maura Monzon DO [address] [place] [address] documented as of this encounter Visit Diagnoses Not on filedocumented in this encounter Additional Health Concerns Infection Onset Date Last Indicated Resolved Time R/O C. diff 11/04/2024 11/02/2024 11/04/2024 1:18 PM CDT documented as of this encounter Care Teams Senior Administrative Support Relationship Specialty Start Date End Date Maura Monzon DO [address] [place] [address] PCP - General Internal Medicine 04/09/19 documented as of this encounter
--- OUTSIDE RECORDS SUMMARY | 2025-01-01 12:52 | XMS_ITS | Clinical Summary ---
Author Organization [facility] Address [address] [place] [address] Care Team Providers Care Hospitality Housekeeper Name Role Phone Michael Galvan MD Unavailable Maura Monzon DO Primary Care Provider [phone] Allergies No known active allergies Medications lisinopriL (PRINIVIL,ZESTR IL) 20 mg tablet Take 1 tablet (20 mg total) by mouth daily Active lovastatin (MEVACOR) 20 mg tablet Take 1 tablet (20 mg total) by mouth nightly Active Active Problems Problem Noted Date Diagnosed Date Kidney stone 07/04/2022 Overview (07/04/2022): Added automatically from request for surgery [id number] Surgical History Surgery Date Site/Laterality Comments TONSILLECTOMY/ADENOIDECTOMY [...] on file 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 JURY CONSULTANT Gender Identity Not on file Sexual Orientation [...] 104.3 kg (230 lb) 07/27/2022 1:20 PM JURY CONSULTANT Height 182.9 cm (6') 07/27/2022 1:20 PM JURY CONSULTANT Body Mass Index 31.19 07/27/2022 1:20 PM JURY CONSULTANT Plan of Treatment Health Maintenance Due Date Last Done Comments Colon Cancer Screening-Colonoscopy 1950 Depression Screening 1950 Hepatitis C Screening 1950 DTaP/Tdap/Td Vaccine (1 - Tdap) 1960 Hepatitis B Screening 07/29/1967 Abdominal Aortic Aneurysm (A AA) Screen 2014 Well Visit 65+ 2014 Pneumococcal vaccine 65+ (2 of 2 - PCV20 or PCV21) 06/19/2022 06/19/2021, 03/03/2016 Zoster Vaccine (2 of 2) 06/21/2022 04/26/2022 Fall Risk Assessment 08/21/2023 08/20/2022 Covid-19 Vaccine (5 - 2023-2 5 season) 2024 03/06/2022, 04/06/2021, 08/14/2020, Additional history exists Influenza Vaccine (#1) 2025 , 02/18/2020, 02/15/2020, Additional history exists Medical Devices Implanted Type Area Shellfish Manager Device Identifier Shelf Expiration Date Model / Serial / Lot [employer] Universa 5fr 28cm Radiopaque Positioner Braid Tether Firm 2 [id number] - [id number] Implanted:Qty: 1 on 08/20/2022 by Michael Galvan MD at [facility] Left: Ureter [employer] 06/01/2025 [id number] / / [id number] [employer] Universa 5fr 28cm Radiopaque Positioner Braid Tether Firm 2 [id number] - [id number] Implanted:Qty: 1 on 08/20/2022 by Michael Galvan MD at [facility] Right: Ureter [employer] 05/28/2025 [id number] / / [id number] Insurance [facility] MEDICARE ADVANTAGE [employer] MEDICARE HMO Care Teams Hospitality Housekeeper Relationship Specialty Start Date End Date Maura Monzon DO [address] [facility] [address] [place] [address] PCP - General Internal Medicine 02/27/23 Michael Galvan MD Consulting Physician Urology 08/20/22
--- OUTSIDE RECORDS SUMMARY | 2025-01-01 12:52 | XMS_ITS | Encounter Summary ---
Author Organization [facility] Address [address] [place] [address] Care Team Providers Care Meal Attendant Name Role Phone Maura Monzon DO Primary Care Provider [phone] Reason for Visit * Reason Comments Clinical Consult Before Scheduling Encounter Details Date Type Department Care Team (Late st Contact Info) Description 10/16/2024 Telephone [facility] Internal Medicine Medical [place] [facility] [address] [address] Maura Monzon, [address] 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 Routed to providers as FYI. Debbie RN * Telephone Encounter - Nae Murcia - 10/16/2024 11:00 AM CDT Copied from [facility] #[id number]. Topic: Symptomatic Care >> October 16, 2024 10:58 AM Nae Santa wrote: Has this patient seen any provider (current or former) at the requested clinic in the past? Yes, Select the appropriate age range and symptom Patient has symptoms and is seeking care. Caller Name: Kanika([facility]) Callback Number: [phone] Call Notes: diarrhea x 2 days getting [...] Description 12/27/2025 10:30 AM CDT Office Visit [facility] Internal Medicine Medical [facility] [address] [address] Maura Monzon, DO [address] [facility] [address] [place] [address] documented as of this encounter Visit Diagnoses Not on filedocumented in this encounter Additional Health Concerns Infection Onset Date Last Indicated Resolved Time R/O C. diff 11/04/2024 11/02/2024 11/04/2024 1:18 PM CDT Assessment Noted Time PHQ-9 Depression Total Score: 1 07/29/19 25 10:21 AM CDT documented as of this encounter Care Teams Meal Attendant Relationship Specialty Start Date End Date Maura Monzon DO [address] [facility] [address] [place] [address] PCP - General Internal Medicine 04/09/19 documented as of this encounter
--- OUTSIDE RECORDS SUMMARY | 2025-01-01 12:52 | XMS_ITS | Clinical Summary ---
Author Organization [facility] Address [address] [place] [address] Phone Care Team Providers Care Nail Polish Brush Machine Feeder Name Role Phone Maura Monzon Primary Care Provider [phone] Allergies No known active allergies Medications lisinopril [...] on file Medical Devices Implanted Type Area Icer Air Conditioning Device Identifier Shelf Expiration Date Model / Serial / Lot Technis 1-Piece Iol With Simplicity Delivery System Implanted:Qty: 1 on 08/13/2022 by Antelmo Barry MD at [facility] Right: Eye 03/31/2025 [id number] / [id number] / [id number] Technis 1-Piece Iol With Simplicity Delivery System Implanted:Qty: 1 on 09/10/2022 by Antelmo Barry MD at [facility] Left: Eye [employer] 06/17/2024 [id number] / [id number] / [id number] Insurance [address] [id number] MEDICARE C [facility] Care Teams Nail Polish Brush Machine Feeder Relationship Specialty Start Date End Date Maura Monzon DO [address] [facility] [address] [place] [address] PCP - General Internal Medicine 08/03/22
--- OUTSIDE RECORDS SUMMARY | 2025-01-01 12:52 | XMS_ITS | Clinical Summary ---
Author Organization [facility] Address [address] [place] [address] Phone Care Team Providers Care Information Delivery Analyst Name Role Phone Maura Monzon Primary Care Provider [phone] Allergies Active Allergy Reactions Criticality Noted Date Comments Sulfa (Sulfonamide Antibiotics) Unknown 03/21 Medications aspirin (ECOTRIN EC) 81 mg Tablet, Delayed Release (E.C.)Indications:Aorti c atherosclerosis,Atheros clerosis of kenaitze coronary artery of kenaitze heart without angina pectoris Take 1 Tablet (81 mg) by mouth daily. 024 Active multivitamin with keheirvu-cgznmdtk-hrcfi n (Centrum Silver) 0.4 mg-300 mcg- 250 [...] mouth daily at bedtime. 100 Tablet 1 025 Active fluticasone propionate (FLONASE) 50 mcg/spray [place], Suspension nasal inhaler Administer 2 Sprays in each nostril daily. 48 Gram 3 025 Active Additional Information Patient not taking.Reported on 12/31/2024 lactobacillus rhamnosus, GG, (CULTURELLE) 10 billion cell Capsule Take 1 Capsule by mouth daily. 100 Capsule 3 025 Active azelastine (ASTELIN) 137 mcg/actuation nasal spray Administer 2 Sprays in each nostril 2 times daily. 30 mL 1 025 Active Additional Information Patient not taking.Reported on 12/31/2024 fidaxomicin (DIFICID) 200 mg TabletIndications:Recur rent Clostridioides difficile diarrhea Take 1 Tablet (200 mg) by mouth every 12 hours for 10 days. 20 Tablet 025 2024 Active vancomycin (VANCOCIN) 125 mg Capsule Take 125 mg by mouth. 2024 Discontin ued(Alter vadim therapy prescribe d) Active Problems Problem Noted Date Diagnosed Date C. difficile diarrhea 10/27/2024 Moderate dementia without be havioral disturbance, psychotic disturbance, mood disturbance, or anxiety 09/16/2024 Urolithiasis 09/15/2024 Syncope and collapse 09/15/2024 Transient ischemic attack 09/15/2024 Atherosclerosis of kenaitze co ronary artery of kenaitze heart without angina pectoris 06/19/2022 Aortic atherosclerosis 06/19/2022 ULYSSES on CPAP 11/14/2021 Benign hypertension 11/14/2021 Prediabetes 09/30/2020 Hyperlipidemia 04/09/2019 Encounters Date Type Department Care Team Description 01/01/2025 Telephone [facility] Internal Medicine Medical [place] [address] [address] Maura Monzon, Needs Orders Written; Information 12/31/2024 1:30 PM CDT Office Visit [facility] Internal Medicine [facility] [place] [address] [address] Leroy Elizabeth PA-C Recurrent Clostridioides difficile diarrhea (Primary Dx); C. difficile diarrhea 12/16/2024 10:00 AM CDT Video Visit [facility] [place] [address] [place] [address] Sharmila Cheng NP Medicare annual wellness visit, subsequent (Primary Dx); Benign hypertension; Pure hypercholesterolemia; Atherosclerosis of kenaitze coronary artery of kenaitze heart without angina pectoris; Prediabetes; Memory loss; History of Clostridioides difficile infection; [place] (hard of hearing) 12/02/2024 External Device Data STL ABSTRACTION Provider, Abstract 12/01/2024 External Device Data ST[place] ABSTRACTION Provider, Abstract 11/09/2024 9:30 AM CDT Office Visit [facility] [address] [place] [address] Sharmila Cheng NP Hospital discharge follow-up (Primary Dx); C. difficile diarrhea; Prediabetes; Moderate dementia without behavioral disturbance, psychotic disturbance, mood disturbance, or anxiety, unspecified dementia type (CMS/HCC); Pure hypercholesterolemia; Benign hypertension; Atherosclerosis of kenaitze coronary artery of kenaitze heart without angina pectoris; Encounter for colorectal cancer screening; Memory changes 11/04/2024 Telephone [facility] [place] [address] [place] [address] Maura Monzon, Patient Communication 11/04/2024 Telephone [facility] [place] [address] [place] [address] Maura Monzon, Appointment Notification 11/04/2024 Orders Only [facility] [place] [address] [facility] [address] [place] [address] Kia Osullivan C. difficile diarrhea 11/04/2024 External Device Data STL ABSTRACTION Provider, Abstract 11/03/2024 External Device Data STL ABSTRACTION Provider, Abstract 11/02/2024 Telephone [facility] [place] [address] [address] Maura Monzon, Results; Patient Communication 11/02/2024 [facility] [place] [address] [address] Maura Monzon, Needs Orders Written; Needs Orders Written; Clinical Consult Before Scheduling 10/27/2024 11:30 AM CDT Office Visit [facility] [place] [address] [address] Leroy Elizabeth PA-C C. difficile diarrhea (Primary Dx) 10/21/2024 [facility] [address] [address] Maura Monzon, Appointment Verification 10/16/2024 [facility] [place] [address] [place] [address] Maura Monzon DO Clinical Consult Before Scheduling 10/08/2024 [facility] [address] [address] Maura Monzon DO Clinical Consult Before Scheduling 10/08/2024 External [...] PNEUM OCOCCAL CONJUGATE VACCINE 20-VALENT (PCV20), POLYSACCHARIDE [id number] CONJUGATE, ADJUVANT 0.5 ML (PF) IM 06/19/2022 [...] on file 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 Gender Identity Not on file Sexual Orientation Not on file 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 Industry Job Start Date Job End Date 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 Not on file Not on file Not on file Last Filed Vital Signs Vital Sign Reading Time Taken Comments Blood Pressure 110/60 12/31/2024 1:01 PM CDT Pulse 73 12/31/2024 1:01 PM CDT Temperature 37.1 C (98.7 F) 12/31/2024 1:01 PM CDT Respiratory Rate 16 10/27/2024 11:09 AM CDT Oxygen Saturation 96% 12/31/2024 1:01 PM CDT Inhaled Oxygen Concentration - - Weight 99.1 kg (218 lb 6.4 oz) 12/31/2024 1:01 P M CDT Height 180.3 cm (5' 11) 12/31/2024 1:01 PM CDT Body Mass Index 30.46 12/31/2024 1:01 PM CDT Plan of Treatment Upcoming Encounters Date Type Department Care Team (Late st Contact Info) Description 12/27/2025 10:30 AM CDT Office Visit [facility] Internal Medicine Medical [place] [address] [address] NicolásMaura lopes, DO [address] [facility] [facility] [address] [place], [place] [id number] Health Maintenance Due Date Last Done Comments [...] 1-dose 75+ series) 2024 COVID-19 Vaccine ( - 2023-2 5 season) 2024 02/28/2024, 08/14/2020, 07/17/2020 INFLUENZA VACCINE (#1) 2024 , 04/18/2023, 02/17/2021, Additional history exists COLORECTAL SCREENING 05/20/2025 05/20/2015 (Previously completed) Colorectal Cancer Screening 05/20/2025 PNEUMOCOCCAL VACCINE 50+ YEARS Completed 06/19/2022 , 06/19/2021 [place] Preventative Visit/Annual Wellness Visit Completed 12/16/2024, 06/20/2023, 06/19/2022, Additional history exists Procedures Procedure Name Priority Date/Time Associated Diagnosis Comments C. DIFFICILE DETECTION Routine 11/02/2024 1:16 PM CDT C. difficile diarrhea from Last 3 Months Results * C. DIFFICILE DETECTION (11/02/2024 1:16 PM CDT) C DIFF DETECTION (REPORT) Positive EXTERNAL LAB Stool STOOL SPECIMEN / Unknown 11/02/2024 1:16 PM CDT Leroy Elizabeth PA-C MICROBIOLOGY - GENERAL ORD ERABLES Final Result EXTERNAL LAB from Last 3 Months Insurance Medicare Part B Care Teams Information Delivery Analyst Relationship Specialty Start Date End Date Maura Monzon DO [address] [facility] [address] [place] [address] PCP - General Internal Medicine 04/09/19
--- OUTSIDE RECORDS SUMMARY | 2025-01-01 12:52 | XMS_ITS | Encounter Summary ---
Author Organization [facility] Address [address] [place] [address] Care Team Providers Care Director Of Communications Name Role Phone Maura Monzon DO Primary Care Provider [phone] Reason for Visit * Reason Comments Insurance Issues Encounter Details Date Type Department Care Team (Late st Contact Info) Description 03/03/2024 Telephone [facility] Internal Medicine Medical [place] [facility] [address] [address] Maura Monzon, [address] [place] [address] Insurance Issues Social History Tobacco Use Types Packs/Day Years Used Date Smoking Tobacco: Never Smokeless Tobacco: Never Alcohol Use Standard Drinks/Week Comments Not Currently 0 (1 standard drink = 0.6 oz pur e alcohol) Sex and Gender Information Value Date Recorded Sex Assigned at Not on file 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 Monzon and performed on 06/22/23: Lipid panel, HgbA1c, CMP, CBC with diff, PSA, and TSH. Additionally they requested the NPI for [facility]. * Telephone Encounter - SheaMariah - 03/03/2024 12:51 PM CDT Copied from [facility] #[id number]. Topic: Patient or Caregiver Communication Request >> Mar 03, 2024 12:48 PM Mariah Funk wrote: Patient or Caregiver requesting that a message be sent to Care Team Caller: Kanika on PHI Patient/Caregiver Callback Number: [phone] (home) Call Notes: Kanika on phi Insurance needs PCP to contact [employer] to let them know PCP is the one who prescribed labs. Number # [phone] Monzon's is the one that ordered the labs from 06/22/2023. Per insurance. documented in this encounter Plan of Treatment Upcoming Encounters Date Type Department Care Team (Late st Contact Info) Description 12/27/2025 10:30 AM CDT Office Visit [facility] Internal Medicine Medical [place] [facility] [address] [address] Maura Monzon DO [address] [place], [place] [address] documented as of this encounter Visit Diagnoses Not on filedocumented in this encounter Additional Health Concerns Infection Onset Date Last Indicated Resolved Time R/O C. diff 11/04/2024 11/02/2024 11/04/2024 1:18 PM CDT documented as of this encounter Care Teams Director Of Communications Relationship Specialty Start Date End Date Maura Monzon DO [address] [place] [address] PCP - General Internal Medicine 04/09/19 documented as of this encounter
[2025-01-01 14:10] LABS: Toxigenic C. Diff POSITIVE (NEGATIVE)
== END 2025-01-01 12:45 | disposition home or self-care (01) ==
LOC: CHSLAB 12:50
DX: A04.72 Enterocolitis due to Clostridium difficile, not specified as recurrent (principal)
CPT/HCPCS: 87493

== ENCOUNTER 2025-02-02 07:49 | Outpatient (CLI) | payer MEDICARE, SELFPAY ==
[2025-02-02 08:04] LABS: Hematocrit 40.6 % (37.0-46.0); Hemoglobin 13.3 g/dL (12.4-15.3); Immature Granulocyte Percent A 0.3 % (0.0-0.0); Lymphocytes Absolute Auto 3.06 K/mm3 (1.10-4.50); Mean Corpuscular HGB Conc 32.8 g/dL (32-36); Mean Corpuscular Hemoglobin 30.4 pg (27.0-31.0); Mean Corpuscular Volume 92.9 fL (78.0-102.0); Nucleated Red Blood Cells Absolute Auto 0.00 K/mm3 (0.00-0.00); Nucleated Red Blood Cells Perc 0.0 % (0-0.0); Platelet Count Result 198 K/mm3 (150-420); Red Blood Count 4.37 M/mm3 (4.70-6.10); White Blood Count 7.4 K/mm3 (4.8-10.8)
--- OUTSIDE RECORDS SUMMARY | 2025-02-02 08:30 | XMS_ITS | Encounter Summary ---
Author Organization [facility] Address [address] [place] [address] Care Team Providers Care Photographic Equipment Mechanic Name Role Phone Maura Monzon DO Primary Care Provider [phone] Reason for Visit * Reason Comments Clinical Consult Before Scheduling Encounter Details Date Type Department Care Team (Late st Contact Info) Description 10/16/2024 Telephone [facility] Internal Medicine Medical [facility] [address] [place] [address] Maura Monzon, [address] [facility] [facility] [address] [place] [address] Clinical Consult Before Scheduling Social [...] often do you attend chur ch or gnosticist services? 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 Topic: Symptomatic Care >> October 16, 2024 10:58 AM Nae Santa wrote: Has this patient seen any provider (current or former) at the requested clinic in the past? Yes, Select the appropriate age range and symptom Patient has symptoms and is seeking care. Caller Name: Kanika([facility]) Callback Number: [phone] Call Notes: diarrhea x 2 days getting [...] Description 12/27/2025 10:30 AM CDT Office Visit [facility] Internal Medicine Medical [place] A [facility] [address] [address] Maura Monzon, DO [address] [facility] [facility] [address] [place] [address] documented as of this encounter Visit Diagnoses Not on filedocumented in this encounter Additional Health Concerns Infection Onset Date Last Indicated Resolved Time R/O C. diff 11/04/2024 11/02/2024 11/04/2024 1:18 PM CDT R/O C. diff 01/14/2025 01/14/2025 01/14/2025 11:4 1 AM CDT Assessment Noted Time PHQ-9 Depression Total Score: 1 07/29/19 25 10:21 AM CDT documented as of this encounter Care Teams Photographic Equipment Mechanic Relationship Specialty Start Date End Date Maura Monzon DO [address] [facility] [address] [place] [address] PCP - General Internal Medicine 04/09/19 documented as of this encounter
--- OUTSIDE RECORDS SUMMARY | 2025-02-02 08:30 | XMS_ITS | Encounter Summary ---
Author Organization [facility] Address [address] [place] [address] Care Team Providers Care Manager Training And Development Name Role Phone Maura Monzon DO Primary Care Provider [phone] Reason for Visit * Reason Comments Provider Call Encounter Details Date Type Department Care Team (Late st Contact Info) Description 10/21/2023 Telephone [facility] Internal Medicine Medical [facility] [address] [address] Maura Monzon, [address] [facility] [address] [place] [address] Provider Call Social History Tobacco [...] on file Legal Sex Male 4: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 Notified family practice physician who will notify the pt once the issue is resolved. * Telephone Encounter - Melissa Qiu - 10/21/2023 1:20 PM CDT Copied from [facility] #[id number]. Topic: Revwkmln-Oa-Poleqimd Call >> Oct 21, 2023 1:16 PM Melissa Downey wrote: Caller is requesting to speak with Clinical Care Team. Caller Name: [facility] Callback Number: [phone] Clinician Type: Healthcare Professional Call Notes: Calling [...] Description 12/27/2025 10:30 AM CDT Office Visit [facility] Internal Medicine Medical [place] [email or web address] [address] [address] Maura Monzon DO [address] [facility] [address] [place] [address] documented as of this encounter Visit Diagnoses Not on filedocumented in this encounter Additional Health Concerns Infection Onset Date Last Indicated Resolved Time R/O C. diff 11/04/2024 11/02/2024 11/04/2024 1:18 PM CDT R/O C. diff 01/14/2025 01/14/2025 01/14/2025 11:4 1 AM CDT documented as of this encounter Care Teams Manager Training And Development Relationship Specialty Start Date End Date Maura Monzon DO [address] [facility] [address] [place] [address] PCP - General Internal Medicine 04/09/19 documented as of this encounter
--- OUTSIDE RECORDS SUMMARY | 2025-02-02 08:30 | XMS_ITS | Encounter Summary ---
Author Organization [facility] Address [address] [place] [address] Care Team Providers Care Telescope Repairer Name Role Phone Maura Monzon DO Primary Care Provider [phone] Reason for Visit * Reason Comments Question Encounter Details Date Type Department Care Team ([facility] st Contact Info) Description 10/29/2023 Telephone [facility] Internal Medicine Medical [facility] [address] [address] Maura Monzon, [address] [place] [address] Question Social History Tobacco Use [...] often do you attend chur ch or pentecostalism services? 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 However after patient had labs done ordered 06/20/[address] Monzon they were billed for labs as out of network, informing him [employer] is fact out of network with his [employer] insurance. Spouse is asking for letter to be faxed to [facility] that oupatient labs ordered 06/20/[address] Monzon. Fax letter to [phone] with retroactive claim number [id number] on letter. Letter written. In Dr. Monzon [...] 1:23 PM CDT Copied from [facility] #[id number]. Topic: Patient or Caregiver Communication Request >> Oct 29, 2023 1:20 PM Kim Thomas wrote: Patient or Caregiver requesting advice Caller: on phi Patient/Caregiver Callback Number: [phone] (home) Call Notes: states that they need a referral to their insurance for lab. Stating that the dr ordered the lab work in June. Please fax to [phone]. Please advise. This is all the details that she gave me. Please advise. Here is the retro claim # [id number] documented in this encounter Plan of Treatment Upcoming Encounters Date Type Department Care Team (Late st Contact Info) Description 12/27/2025 10:30 AM CDT Office Visit [facility] [address] [place] [address] Maura Monzon, DO [address] [place] [address] documented as of this encounter Visit Diagnoses Not on filedocumented in this encounter Additional Health Concerns Infection Onset Date Last Indicated Resolved Time R/O C. diff 11/04/2024 11/02/2024 11/04/2024 1:18 PM CDT R/O C. diff 01/14/2025 01/14/2025 01/14/2025 11:4 1 AM CDT documented as of this encounter Care Teams Telescope Repairer Relationship Specialty Start Date End Date Maura Monzon DO [address] [address] [place] [address] PCP - General Internal Medicine 04/09/19 documented as of this encounter
--- OUTSIDE RECORDS SUMMARY | 2025-02-02 08:30 | XMS_ITS | Encounter Summary ---
Author Organization [facility] Address [address] [place] [address] Care Team Providers Care Pest Management Supervisor Name Role Phone Maura Monzon DO Primary Care Provider [phone] Reason for Visit * Reason Comments Provider Call Encounter Details Date Type Department Care Team (Late st Contact Info) Description 08/28/2023 Telephone [facility] Internal Medicine Medical [facility] [address] [address] Maura Monzon, [address] [facility] [address] [facility] [address] [place] [address] Provider Call Social History Tobacco [...] often do you attend chur ch or quaker services? 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 Glez Office @ [phone] * Telephone Encounter - Jovi Claire - 08/28/2023 1:31 PM CDT Copied [facility] #[id number]. Topic: Xbevogxz-Nw-Gxphlbsr Call >> Aug 28, 2023 1:30 PM Jovi Downey wrote: Caller is requesting to speak with Clinical Care Team. Caller Name: Mahi Joseph office Callback Number: [phone] Clinician Type: Healthcare Professional Call Notes:Mahi Joseph office is calling in to see if paperwork was faxed over to [employer] Is this addressing an immediate patient care need? Yes documented in this encounter Plan of Treatment Upcoming Encounters Date Type Department Care Team (Late st Contact Info) Description 12/27/2025 10:30 AM CDT Office Visit [facility] Internal Medicine Medical [place] [facility] [address] [place] [address] Maura Monzon DO [address] [facility] [address] [place], [place] [id number] documented as of this encounter Visit Diagnoses Not on filedocumented in this encounter Additional Health Concerns Infection Onset Date Last Indicated Resolved Time R/O C. diff 11/04/2024 11/02/2024 11/04/2024 1:18 PM CDT R/O C. diff 01/14/2025 01/14/2025 01/14/2025 11:4 1 AM CDT documented as of this encounter Care Teams Pest Management Supervisor Relationship Specialty Start Date End Date Maura Monzon DO [address] [place] [address] [address] [place] [address] PCP - General Internal Medicine 04/09/19 documented as of this encounter
--- OUTSIDE RECORDS SUMMARY | 2025-02-02 08:30 | XMS_ITS | Encounter Summary ---
Author Organization [facility] Address [address] [place] [address] Care Team Providers Care Corn Sheller Operator Name Role Phone Unavailable Primary Care Provider Unavailabl e Encounter Details Date Type Department Care Team (Late st Contact Info) Description 10/30/2023 Lab Requisition [facility] - DermPath Lab [address] [place] [address] Shawn Adkins MD [facility] DERMATOLOGY [address] [place] [phone] Neoplasm of uncertain behavior of skin Social History Tobacco Use Types Packs/Day Years Used Date Smoking Tobacco: Never Assessed Sex and Gender Information Value Date Recorded Sex Assigned at Not on file 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 The specimen consists of a shave biopsy measuring 7x6x1 mm. Jar 0. 4 4:31 PM CDT DERMATOPATHOLOGY LABORATORY Microscopic Description Specimen A. SKIN, right pentecostalism: The epidermis shows parakeratosis, full thickness disorderly [...] characteristic determined by the Dermatopathology Laboratory at [facility], directed by Dr. Justin Kiran. These tests need not be, and therefore are not, approved by the [place] Food and Drug Administration. The tests are used for clinical purposes. Billing Codes Specimen Charges Stain Charges 14121 1 4 4:31 PM CDT DERMATOPATHOLOGY LABORATORY Embedded Images 4 4:31 PM CDT DERMATOPATHOLOGY LABORATORY Pathology/Cytolog y TISSUE SPECIMEN FROM SKIN / Unknown 10/30/2023 10/31/2023 4:29 PM CDT us Shawn Adkins MD LAB - PATHOLOGY/CYTOLOGY JAMIL BILLS Final Result DERMATOPATHOLOGY LABORATORY [facility] - Department of Dermatology [address], [address] Floor [address] [phone] documented in this encounter Visit Diagnoses Diagnosis Neoplasm of uncertain behavior of skin documented in this encounter
--- OUTSIDE RECORDS SUMMARY | 2025-02-02 08:30 | XMS_ITS | Encounter Summary ---
Author Organization [facility] Address [address] [place] [address] Care Team Providers Care Internal Audit Director Name Role Phone Maura Monzon DO Primary Care Provider [phone] Reason for Visit * Reason Comments Results Encounter Details Date Type Department Care Team ([facility] st Contact Info) Description 01/01/2025 Telephone [facility] Internal Medicine Medical [facility] [address] [address] Maura Monzon, [address] [place] [address] Results Social History Tobacco Use [...] on file Legal Sex Male 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 calling with critical labs results : positive C.Diff. routing to ordering provider Advised to fax results to office. She voiced understanding Cherelle CHANG * Telephone Encounter - Winston Ibarra - 01/01/2025 2:08 PM CDT Copied from [facility] #[id number]. Topic: CPA Information Request - Results >> Jan 01, 2025 2:06 PM Winston Walton wrote: Caller is requesting information about results from an order. ? Caller Name: Mahi Jay Callback Number: [phone] Test Name: Cdiff Call Notes: Transferred to clinic to discuss critical results documented in this encounter Plan of Treatment Upcoming Encounters Date Type Department Care Team (Late st Contact Info) Description 12/27/2025 10:30 AM CDT Office Visit [facility] Internal Medicine Medical [place] [facility] [address] [address] Maura Monzon DO [address] [place] [address] documented as of this encounter Visit Diagnoses Not on filedocumented in this encounter Additional Health Concerns Infection Onset Date Last Indicated Resolved Time R/O C. diff 01/14/2025 01/14/2025 01/14/2025 11:4 1 AM CDT documented as of this encounter Care Teams Internal Audit Director Relationship Specialty Start Date End Date Maura Monzon DO [address] [place] [address] PCP - General Internal Medicine 04/09/19 documented as of this encounter
--- OUTSIDE RECORDS SUMMARY | 2025-02-02 08:30 | XMS_ITS | Clinical Summary ---
Author Organization [facility] Address [address] [place] [address] Care Team Providers Care Social Insurance Analyst Name Role Phone Michael Galvan MD Unavailable Maura Monzon DO Primary Care Provider [phone] Allergies No known active allergies Medications lisinopriL (PRINIVIL,ZESTR IL) 20 mg tablet Take 1 tablet (20 mg total) by mouth daily Active lovastatin (MEVACOR) 20 mg tablet Take 1 tablet (20 mg total) by mouth nightly Active Active Problems Problem Noted Date Diagnosed Date Kidney stone 07/04/2022 Overview (07/04/2022): Added automatically from request for surgery [id number] Surgical History Surgery Date Site/Laterality Comments TONSILLECTOMY/ADENOIDECTOMY [...] on file 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 Gender Identity Not on file Sexual Orientation [...] 104.3 kg (230 lb) 07/27/2022 1:20 PM MATHEMATICAL SCIENTIST Height 182.9 cm (6') 07/27/2022 1:20 PM MATHEMATICAL SCIENTIST Body Mass Index 31.19 07/27/2022 1:20 PM MATHEMATICAL SCIENTIST Plan of Treatment Health Maintenance Due Date [...] Assessment 08/21/2023 08/20/2022 Covid-19 Vaccine (5 - 2024-2 6 season) 2025 03/06/2022, 04/06/2021, 08/14/2020, Additional history exists Influenza Vaccine (#1) 2025 , 02/18/2020, 02/15/2020, Additional history exists Medical Devices Implanted Type Area Business Consultant Device Identifier Shelf Expiration Date Model / Serial / Lot [employer] Universa 5fr 28cm Radiopaque Positioner Braid Tether Firm 2 [id number] - [id number] Implanted:Qty: 1 on 08/20/2022 by Michael Galvan MD at [facility] Left: Ureter [employer] 06/01/2025 [id number] / / [id number] [employer] Universa 5fr 28cm Radiopaque Positioner Braid Tether Firm 2 [id number] - [id number] Implanted:Qty: 1 on 08/20/2022 by Michael Galvan MD at [facility] Right: Ureter [employer] 05/28/2025 [id number] / / [id number] Insurance [facility] MEDICARE ADVANTAGE [facility] MED[facility] Address: [address] [address] [place] [address] [facility] MEDICARE HMO Care Teams Social Insurance Analyst Relationship Specialty Start Date End Date Maura Monzon DO [address] [facility] [address] [place] [address] PCP - General Internal Medicine 02/27/23 Michael Galvan MD Consulting Physician Urology 08/20/22
--- OUTSIDE RECORDS SUMMARY | 2025-02-02 08:30 | XMS_ITS | Clinical Summary ---
Author Organization [facility] Address [address] [place] [address] Care Team Providers Care Players Assistant Name Role Phone Unavailable Primary Care Provider Unavailabl e Source Comments [facility],non-owned Affiliates and Associated Physician Practices is amultiple site organization consisting of ambulatory clinics and hospital sitesin [place], [place], [place] and [place]. This disclosure is being madepursuant to the Care Everywhere program and may not contain all information available regarding this patient. 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
--- OUTSIDE RECORDS SUMMARY | 2025-02-02 08:30 | XMS_ITS | Clinical Summary ---
Author Organization [facility] Address [address] [place] [address] Phone Care Team Providers Care Handle Lathe Operator Name Role Phone Maura Monzon Primary Care Provider [phone] Allergies Active Allergy Reactions Criticality Noted Date Comments Sulfa (Sulfonamide Antibiotics) Unknown 03/21 Medications aspirin (ECOTRIN EC) 81 mg Tablet, Delayed Release (E.C.)Indications:Aorti c atherosclerosis,Atheros clerosis of [place] coronary artery of [place] heart without angina pectoris Take 1 Tablet (81 mg) by mouth daily. 024 Active multivitamin with zhstysqu-iqcllsdt-wjfuz n (Centrum Silver) 0.4 mg-300 mcg- 250 [...] 025 Active fluticasone propionate (FLONASE) 50 mcg/spray [place], Suspension nasal inhaler Administer 2 Sprays in each nostril daily. 48 Gram 3 Active Additional Information Patient not taking.Reported on 12/31/2024 lactobacillus rhamnosus, GG, (CULTURELLE) 10 billion cell Capsule Take 1 Capsule by mouth daily. 100 Capsule 3 Active azelastine (ASTELIN) 137 mcg/actuation nasal spray Administer 2 Sprays in each nostril 2 times daily. 30 mL 1 025 Active Additional Information Patient not taking.Reported on 12/31/2024 vancomycin (VANCOCIN) 125 mg Capsule Take 1 Capsule (125 mg) by mouth 4 times daily for 10 days, THEN 1 Capsule (125 mg) 2 times daily for 7 days, THEN 1 Capsule (125 mg) daily for 7 days, THEN 1 Capsule (125 mg) every other day for 28 days. 75 Capsule 025 2024 Active Active Problems Problem Noted Date Diagnosed Date C. difficile diarrhea 10/27/2024 Moderate dementia without be havioral disturbance, psychotic disturbance, mood disturbance, or anxiety 09/16/2024 Urolithiasis 09/15/2024 Syncope and collapse 09/15/2024 Transient ischemic attack 09/15/2024 Atherosclerosis of [place] co ronary artery of [place] heart without angina pectoris 06/19/2022 Aortic atherosclerosis 06/19/2022 ULYSSES on CPAP 11/14/2021 Benign hypertension 11/14/2021 Prediabetes 09/30/2020 Hyperlipidemia 04/09/2019 Encounters Date Type Department Care Team Description 01/19/2025 External Device Data STL ABSTRACTION Provider, Abstract 01/14/2025 Orders Only [facility] Internal Medicine Medical [facility] [place] [address] [address] Leroy Elizabeth PA-C C. difficile diarrhea 01/05/2025 External Device Data STL ABSTRACTION Provider, Abstract 01/01/2025 Telephone [facility] Internal Medicine [facility] [place] [address] [address] Maura Monzon DO Patient Communication 01/01/2025 Telephone [facility] [place] [address] [address] Maura Monzon, Results 01/01/2025 Telephone [facility] [place] [address] [address] Maura Monzon, Needs Orders Written; Information 12/31/2024 1:30 PM CDT Office Visit [facility] [place] [address] [address] Leroy Elizabeth PA-C Recurrent Clostridioides difficile diarrhea (Primary Dx); C. difficile diarrhea 12/16/2024 10:00 AM CDT Video Visit [facility] [place] [address] [address] Sharmila Cheng NP Medicare annual wellness visit, subsequent (Primary Dx); Benign hypertension; Pure hypercholesterolemia; Atherosclerosis of [place] coronary artery of [place] heart without angina pectoris; Prediabetes; Memory loss; History of Clostridioides difficile infection; [place] (hard of hearing) 12/02/2024 External Device Data STL ABSTRACTION Provider, Abstract 12/01/2024 External Device Data [place] ABSTRACTION Provider, Abstract 11/09/2024 9:30 AM CDT Office Visit [facility] [place] [address] [address] Sharmila Cheng NP Hospital discharge follow-up (Primary Dx); C. difficile diarrhea; Prediabetes; Moderate dementia without behavioral disturbance, psychotic disturbance, mood disturbance, or anxiety, unspecified dementia type (CMS/HCC); Pure hypercholesterolemia; Benign hypertension; Atherosclerosis of [place] coronary artery of [place] heart without angina pectoris; Encounter for colorectal cancer screening; Memory changes 11/04/2024 Telephone [facility] [place] [address] [address] Maura Monzon, Patient Communication 11/04/2024 Telephone [facility] [place] [address] [address] Maura Monzon, Appointment Notification 11/04/2024 Orders Only [facility] [place] [address] [address] Kia [facility] C. difficile diarrhea 11/04/2024 External Device Data STL ABSTRACTION Provider, Abstract 11/03/2024 External Device Data [place] ABSTRACTION Provider, Abstract 11/02/2024 Telephone [facility] [place] [address] [address] Maura Monzon, Results; Patient Communication 11/02/2024 Telephone [facility] [place] [address] [address] Maura Monzon, Needs Orders Written; Needs Orders Written; Clinical Consult Before Scheduling from Last 3 Months Immunizations Immunization Administration Dates Next Due (COMRINATY 2024-)(12YR UP) COVID-19 VACCINE, MRNA (PF)30 MCG/0.3 ML, IM SYRINGE 02/28/2024 (PREVNAR 13)(6 WKS UP) PNEUM OCOCCAL CONJUGATE (PCV13) 0.5 ML, IM 06/19/2021 (PREVNAR 20)(6 WKS UP) PNEUM OCOCCAL CONJUGATE VACCINE 20-VALENT (PCV20), POLYSACCHARIDE [id number] CONJUGATE, ADJUVANT 0.5 ML (PF) IM 06/19/2022 [...] often do you attend chur ch or muslim services? 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 Not on file Not on file [...] Description 12/27/2025 10:30 AM CDT Office Visit [facility] Internal Medicine [facility] [place] [address] [place] [address] [address] Maura Monzon, DO [address] [place] [address] Health Maintenance Due Date Last Done Comments [...] ) (1 - 1-dose 75+ series) 2024 INFLUENZA VACCINE (#1) 2024 , 04/18/2023, 02/17/2021, Additional history exists COVID-19 Vaccine ( - 2023-2 5 season) 2025 02/28/2024, 08/14/2020, 07/17/2020 COLORECTAL SCREENING 05/20/2025 05/20/2015 (Previously completed) Colorectal Cancer Screening 05/20/2025 PNEUMOCOCCAL VACCINE 50+ YEARS Completed 06/19/2022 , 06/19/2021 Medicare Advantage (CT) Preventative Visit/Annual Wellness Visit Completed 12/16/2024, 06/20/2023, 06/19/2022, Additional history exists Procedures Procedure Name Priority Date/Time Associated Diagnosis Comments C. DIFFICILE DETECTION Routine 01/14/2025 11:40 AM CDT C. difficile diarrhea C. DIFFICILE DETECTION Routine 11/02/2024 1:16 PM CDT C. difficile diarrhea from Last 3 Months Results * C. DIFFICILE DETECTION (01/14/2025 11:40 AM CDT) Only the most recent of2 resultswithin the time period is included. Stool STOOL SPECIMEN / Unknown 01/14/2025 11:40 AM CDT us Leroy Elizabeth PA-C MICROBIOLOGY - GENERAL ORD ERABLES Final Result EXTERNAL LAB from Last [address] [place] [id number] [employer] Medicare Part B Care Teams Handle Lathe Operator Relationship Specialty Start Date End Date Maura Monzon DO [address] [place] [address] PCP - General Internal Medicine 04/09/19
--- OUTSIDE RECORDS SUMMARY | 2025-02-02 08:30 | XMS_ITS | Clinical Summary ---
Author Organization [facility] Address [address] [place] [address] Phone Care Team Providers Care Emergency Communications Officer Name Role Phone Maura Monzon Primary Care Provider [phone] Allergies No known active allergies Medications lisinopril [...] on file Medical Devices Implanted Type Area Metal Sprayer Device Identifier Shelf Expiration Date Model / Serial / Lot Technis 1-Piece Iol With Simplicity Delivery System Implanted:Qty: 1 on 08/13/2022 by Antelmo Barry MD at [facility] Right: Eye 03/31/2025 [id number] / [id number] / [id number] Technis 1-Piece Iol With Simplicity Delivery System Implanted:Qty: 1 on 09/10/2022 by Antelmo Barry MD at [facility] Left: Eye [employer] 06/17/2024 [id number] / [id number] / [id number] Insurance on file Care Teams Emergency Communications Officer Relationship Specialty Start Date End Date Maura Monzon DO [address] [facility] [facility] [address] [place] [address] PCP - General Internal Medicine 08/03/22
--- OUTSIDE RECORDS SUMMARY | 2025-02-02 08:30 | XMS_ITS | Encounter Summary ---
Author Organization [facility] Address [address] [place] [address] Care Team Providers Care Customer Service Agent Name Role Phone Maura Monzon DO Primary Care Provider [phone] Reason for Visit * Reason Comments Insurance Issues Encounter Details Date Type Department Care Team (Late st Contact Info) Description 03/03/2024 Telephone [facility] Internal Medicine Medical [facility] [address] [address] Maura Monzon, [address] [place] [address] Insurance Issues Social History Tobacco [...] often do you attend chur ch or islam services? 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 Monzon and performed on 06/22/23: Lipid panel, HgbA1c, CMP, CBC with diff, PSA, and TSH. Additionally they requested the NPI for [facility]. * Telephone Encounter - Varun Sheaal Keri - 03/03/2024 12:51 PM CDT Copied from [facility] #[id number]. Topic: Patient or Caregiver Communication Request >> Mar 03, 2024 12:48 PM Mariah Funk wrote: Patient or Caregiver requesting that a message be sent to Care Team Caller: Kanika on PHI Patient/Caregiver Callback Number: [phone] (home) Call Notes: Kanika on phi Insurance needs PCP to contact [employer] to let them know PCP is the one who prescribed labs. Number # [phone] Monzon's is the one that ordered the labs from 06/22/2023. Per insurance. documented in this encounter Plan of Treatment Upcoming Encounters Date Type Department Care Team (Late st Contact Info) Description 12/27/2025 10:30 AM CDT Office Visit [facility] Internal Medicine Medical [place] [facility] [address] [address] Maura Monzon DO [address] [place] [address] documented as of this encounter Visit Diagnoses Not on filedocumented in this encounter Additional Health Concerns Infection Onset Date Last Indicated Resolved Time R/O C. diff 11/04/2024 11/02/2024 11/04/2024 1:18 PM CDT R/O C. diff 01/14/2025 01/14/2025 01/14/2025 11:4 1 AM CDT documented as of this encounter Care Teams Customer Service Agent Relationship Specialty Start Date End Date Maura Monzon DO [address] [place] [address] PCP - General Internal Medicine 04/09/19 documented as of this encounter
[2025-02-02 08:39] LABS: Hemoglobin A1C 5.7 % (<5.7)
[2025-02-02 08:44] LABS: Alanine Aminotransferase 18 U/L (6-50); Albumin Level 4.2 g/dL (3.5-5.1); Alkaline Phosphatase 73 U/L (38-126); Anion Gap 8 mmol/L (4-12); Aspartate Amino Transferase 29 U/L (17-59); Bilirubin,Total 1.0 mg/dL (0.2-1.3); Blood Urea Nitrogen 16 mg/dL (9-20); Calcium 9.5 mg/dL (8.4-10.2); Carbon Dioxide 28 mmol/L (22-30); Chloride 105 mmol/L (98-107); Estimated Glomerular Filt Rate > 60; Glucose 100 mg/dL (65-110); Osmolality Calculated 293 mOsm/kg (285-295); Potassium 4.5 mmol/L (3.4-5.0); Sodium 141 mmol/L (137-145); Total Protein 7.1 g/dL (6.3-8.2)
== END 2025-02-02 07:50 | disposition home or self-care (01) ==
LOC: CHSLAB 07:54
DX: A04.72 Enterocolitis due to Clostridium difficile, not specified as recurrent (principal); R73.03 Prediabetes; I10 Essential (primary) hypertension
CPT/HCPCS: 36415; 80053; 83036; 85025